=== PATIENT | female | born 1960 | race Caucasian/White ===

== ENCOUNTER 2022-01-17 08:00 | Outpatient (CLI) | payer MEDICAID ==
--- NOTE | 2022-01-17 15:14 | XRAY Report ---
PROCEDURE: Ankle 3 View LT INDICATIONS: ANKLE FRACTURE LEFT TECHNIQUE: 3 views of the ankle were acquired. COMPARISON: 01/05/2022 FINDINGS: Bones: Healing fracture of the lateral malleolus at the syndesmosis. Ankle mortise remains aligned on these weightbearing views. Calcaneal insertional enthesopathy. Soft tissues: No suspicious calcifications. There is soft tissue swelling. IMPRESSION: Healing fracture of the distal fibula at the syndesmosis. Reviewed by: Max Nielsen MD on 01/17/2022 3:13 PM PDT Approved by: Max Nielsen MD on 01/17/2022 3:13 PM PDT Station ID: [id number]
== END 2022-01-17 23:59 | disposition home or self-care (01) ==
LOC: DI.WOS 08:00
PROVIDERS: ATTEND Orthopaedic Surgery
DX: S82.62XD Displaced fracture of lateral malleolus of left fibula, subsequent encounter for closed fracture with routine healing (principal)

== ENCOUNTER 2022-02-08 14:08 | Outpatient (CLI) | payer MEDICAID | END 2022-02-08 14:09 | disposition critical access hospital (66) | LOC: EMS 14:08 | DX: E11.65 Type 2 diabetes mellitus with hyperglycemia (principal); R41.82 Altered mental status, unspecified; J96.90 Respiratory failure, unspecified, unspecified whether with hypoxia or hypercapnia | CPT/HCPCS: A0425; A0427; A0999 ==

== ENCOUNTER 2022-02-08 14:23 | Inpatient (IN) | payer MEDICAID ==
[2022-02-08] MEDS ORDERED: SODIUM CHLORIDE 0.9% 1,000 ML IV STA ×2 (14:32→18:07)
[2022-02-08] MEDS ORDERED: PROPOFOL 1000 MG/100 ML 1,000 MG/100 ML BOTTLE IV STA (14:34)
--- NOTE | 2022-02-08 15:11 | ED Physician Documentation ---
History of Present Illness - Stated complaint Stated Complaint: COMATOSE - Chief complaint Chief Complaint: Critical Care - History obtained from History obtained from: EMS - Additonal information Additional information: The patient is brought to the emergency department by EMS for chief complaint of being found unresponsive in her room at her assisted living facility after refusing to have her blood sugar checked this morning and "sitting in her room all day, eating candy". The medics report that when they arrived, the patient was completely unresponsive and her respirations were irregular, with oxygen saturation in the 70s. Her Accu-Chek was greater than 500. She was found to have sinus tachycardia on the monitor. She was intubated and started on IV fluids via IO line, and she did begin to arouse somewhat after that. They gave her a dose of Versed in route. Patient has open her eyes but is not making any effort to resist bagging and has not been moving much since the medics have had her. The patient did not have any other complaints leading up to the incident today as far as the medics know. Review of records reveals the patient has not been seen in our hospital previously, other than for an ankle x-ray. Review of Systems Unable to obtain: Unresponsive, Intubated PD PAST MEDICAL HISTORY - Present Medications Home Medications: Ambulatory Orders Medication Instructions Recorded Confirmed Amlodipine Besylate [Norvasc] 10 mg PO DAILY 02/08/22 02/08/22 Gabapentin [Neurontin] 600 mg PO BID 02/08/22 02/08/22 Insulin Glargine [Lantus Solostar] 36 units SUBQ QPM 02/08/22 02/08/22 Rosuvastatin Calcium [Crestor] 10 mg PO QPM 02/08/22 02/08/22 Trazodone HCl 400 mg PO QPM 02/08/22 02/08/22 glipiZIDE ER [Glucotrol Xl] 2.5 mg PO 0800 02/08/22 02/08/22 - Allergies Allergies/Adverse Reactions: Allergies Allergy/AdvReac Type Severity Reaction Status Date / Time lisinopril Allergy Unknown Verified 02/08/22 14:41 metformin Allergy Unknown Verified 02/08/22 14:41 PD ED PE NORMAL - Vitals Vital signs reviewed: Yes - General General: Other (Intubated patient who opens her eyes briefly when her his name is side but then immediately becomes unconscious again.) - HEENT HEENT: Atraumatic, PERRL (2 mm, sluggishly reactive), Moist mucous membranes - Neck Neck: Supple, no meningeal sign - Cardiac Cardiac: RRR, No murmur, Strong equal pulses - Respiratory Respiratory: No respiratory distress, Other (Mild crackles bilateral lung kirby diffusely) - Abdomen Abdomen: Soft, Non tender, Non distended - Derm Derm: Normal color, Warm and dry, No rash - Extremities Extremities: No deformity, No edema - Neuro Neuro: Other (Moving all 4 extremities a little. Opens eyes to name but does not make eye contact. Does move to noxious stimuli but does not localize.) Results - Vitals Vitals: Vital Signs - 24 hr 02/08/22 02/08/22 02/08/22 14:26 14:41 15:00 Temperature 37.4 C Heart Rate 90 96 95 Respiratory 20 16 Rate Blood Pressure 111/74 135/92 H O2 Saturation 93 02/08/22 02/08/22 02/08/22 15:30 15:32 16:00 Temperature Heart Rate 93 93 91 Respiratory 12 13 17 Rate Blood Pressure 125/89 H 125/89 H 115/79 O2 Saturation 93 96 02/08/22 02/08/22 02/08/22 16:30 16:47 17:00 Temperature Heart Rate 89 89 88 Respiratory 13 13 Rate Blood Pressure 116/79 108/77 O2 Saturation 95 96 02/08/22 17:23 Temperature Heart Rate 88 Respiratory 12 Rate Blood Pressure 98/74 O2 Saturation 94 Oxygen O2 Source Mechanical ventilator - EKG (time done) 1511 Rate: Rate (enter#) (94) Rhythm: NSR [place]: LAD (Borderline) Intervals: Normal NH QRS: Normal Ischemia: Normal ST segments Compare to prior EKG: Old EKG unavailable Computer interpretation: Agree with computer - Labs Labs: Laboratory Tests 02/08/22 02/08/22 02/08/22 15:05 15:05 15:05 WBC 20.5 H RBC 4.36 Hgb 12.7 Hct 37.6 MCV 86.2 MCH 29.1 MCHC 33.8 RDW 12.3 Plt Count 292 MPV 8.4 Neut # (Auto) Not Reportable Lymph # (Auto) Not Reportable [place] # (Auto) Not Reportable Eos # (Auto) Not Reportable Baso # (Auto) Not Reportable Absolute Nucleated RBC Not Reportable Total Counted 100 Band Neuts % (Manual) 1 Abnorm Lymph % (Manual) 0 Nucleated RBC % Not Reportable Neutrophils # (Manual) 17.4 H Lymphocytes # (Manual) 1.6 Monocytes # (Manual) 1.4 H Eosinophils # (Manual) 0.0 Basophils # (Manual) 0.0 Differential Comment MANUAL DIFFERENTIAL WBC Morphology NORMAL APPEARANCE Platelet Estimate NORMAL (130-450,000) Platelet Morphology NORMAL APPEARANCE RBC Morph Micro Appear NORMAL APPEARANCE Bld Gas Analysis Time Sample Site ABG pH ABG pCO2 ABG pO2 ABG HCO3 ABG Total CO2 ABG O2 Saturation ABG Base Excess Juan Test Respiration Rate O2 Delivery Device Vent Mode FiO2 Tidal Volume PEEP Sodium 134 L Potassium 5.0 Chloride 95 L Carbon Dioxide 25 Anion Gap 14.0 H BUN 30 H Creatinine 1.2 H Estimated GFR (MDRD) 46 L Glucose 513 H* Calcium 8.3 L Total Bilirubin 1.2 H AST 151 H ALT 145 H Alkaline Phosphatase 93 B-Natriuretic Peptide 469 H Total Protein 6.8 Albumin 3.3 Globulin 3.5 Albumin/Globulin Ratio 0.9 L Lipase 23 Nasal Adenovirus (PCR) Nasal B. parapertussis DNA (PCR) Nasal Coronavir 229E PCR Nasal Coronavir HKU1 PCR Nasal Coronavir NL63 PCR Nasal Coronavir OC43 PCR Nasal Enterovir/Rhinovir PCR Nasal Influenza B PCR Nasal Influenza A PCR Nasal Parainfluen 1 PCR Nasal Parainfluen 2 PCR Nasal Parainfluen 3 PCR Nasal Parainfluen 4 PCR Nasal RSV (PCR) Nasal B.pertussis DNA PCR Nasal C.pneumoniae (PCR) Venkatesh Human Metapneumo PCR Nasal M.pneumoniae (PCR) Nasal SARS-CoV-2 (PCR) Urine Opiates Screen Ur Oxycodone Screen Urine Methadone Screen Ur Propoxyphene Screen Ur Barbiturates Screen Ur Tricyclics Screen Ur Phencyclidine Scrn Ur Amphetamine Screen U Methamphetamines Scrn U Benzodiazepines Scrn Urine Cocaine Screen U Cannabinoids Screen Serum Ketones NEGATIVE 02/08/22 02/08/22 02/08/22 15:33 15:51 15:58 WBC RBC Hgb Hct MCV MCH MCHC RDW Plt Count MPV Neut # (Auto) Lymph # (Auto) [place] # (Auto) Eos # (Auto) Baso # (Auto) Absolute Nucleated RBC Total Counted Band Neuts % (Manual) Abnorm Lymph % (Manual) Nucleated RBC % Neutrophils # (Manual) Lymphocytes # (Manual) Monocytes # (Manual) Eosinophils # (Manual) Basophils # (Manual) Differential Comment WBC Morphology Platelet Estimate Platelet Morphology RBC Morph Micro Appear Bld Gas Analysis Time 1604 Sample Site RIGHT BRACHIAL ABG pH 7.33 L ABG pCO2 43 ABG pO2 68 L ABG HCO3 22.3 ABG Total CO2 23.6 ABG O2 Saturation 93 L ABG Base Excess -3.5 L Juan Test NOT APPLICABLE Respiration Rate 12 O2 Delivery Device VENTILATOR Vent Mode ASSIST/CONTROL FiO2 100.00 Tidal Volume 450 PEEP 5 Sodium Potassium Chloride Carbon Dioxide Anion Gap BUN Creatinine Estimated GFR (MDRD) Glucose Calcium Total Bilirubin AST ALT Alkaline Phosphatase B-Natriuretic Peptide Total Protein Albumin Globulin Albumin/Globulin Ratio Lipase Nasal Adenovirus (PCR) NOT DETECTED Nasal B. parapertussis DNA (PCR) NOT DETECTED Nasal Coronavir 229E PCR NOT DETECTED Nasal Coronavir HKU1 PCR NOT DETECTED Nasal Coronavir NL63 PCR NOT DETECTED Nasal Coronavir OC43 PCR NOT DETECTED Nasal Enterovir/Rhinovir PCR NOT DETECTED Nasal Influenza B PCR NOT DETECTED Nasal Influenza A PCR NOT DETECTED Nasal Parainfluen 1 PCR NOT DETECTED Nasal Parainfluen 2 PCR NOT DETECTED Nasal Parainfluen 3 PCR NOT DETECTED Nasal Parainfluen 4 PCR NOT DETECTED Nasal RSV (PCR) NOT DETECTED Nasal B.pertussis DNA PCR NOT DETECTED Nasal C.pneumoniae (PCR) NOT DETECTED Venkatesh Human Metapneumo PCR NOT DETECTED Nasal M.pneumoniae (PCR) NOT DETECTED Nasal SARS-CoV-2 (PCR) NOT DETECTED Urine Opiates Screen NEGATIVE Ur Oxycodone Screen NEGATIVE Urine Methadone Screen NEGATIVE Ur Propoxyphene Screen NEGATIVE Ur Barbiturates Screen NEGATIVE Ur Tricyclics Screen NEGATIVE Ur Phencyclidine Scrn NEGATIVE Ur Amphetamine Screen NEGATIVE U Methamphetamines Scrn NEGATIVE U Benzodiazepines Scrn NEGATIVE Urine Cocaine Screen NEGATIVE U Cannabinoids Screen NEGATIVE Serum Ketones - Rads (name of study) Chest x-ray Radiology: Final report received, EMP read indepedently, See rad report (Multiple diffuse bilateral opacities in lung kirby) Head CT Radiology: Final report received, EMP read indepedently, See rad report (No acute findings) CT chest with Radiology: Final report received, EMP read indepedently, See rad report (Multiple opacities which could represent a bilateral diffuse pneumonia or CHF, or combination.) PD MEDICAL DECISION MAKING - ED course Complexity details: reviewed results, re-evaluated patient, considered differential ED course: The patient was evaluated immediately upon arrival in the emergency department. She did have good lung sounds and was displaying good oxygen saturation so her tube was left as it was for the time being. I did place a central line as above, as patient only had an IO line. The patient was displaying some responsiveness but despite the fact that it had been 45 minutes and she did receive the Versed, she still was not alert and tracking or able to follow commands and still seemed to be quite altered. She also was making minimal respiratory effort. As such, I did not feel that she was ready to be extubated. The patient was somewhat agitated and was started on a propofol drip for sedation. She was given IV fluids and worked up with chest x-ray, labs, EKG, CT scans of the head and chest, ABG and urinalysis. The chest x-ray showed extensive opacities and white blood cell count was 20,000. The patient was sent for CT scans of the head and the chest and chest CT showed extensive opacities/infiltrates consistent with either diffuse pneumonia, CHF, or both. Patient was started on antibiotics. Her ABG did show a low PO2 despite the patient being on 100% FiO2. Her PCO2 was normal and pH was just slightly decreased. We did go ahead and increase the PEEP. I spoke with Dr. Escobar, who did agree to admit the patient to the ICU. Departure - Departure Disposition: 66 [facility] DC/Xfer Clinical Impression: Hyperglycemia Pneumonia Qualifiers: Pneumonia type: due to unspecified organism Laterality: bilateral Lung location: unspecified part of lung Qualified Code(s): J18.9 - Pneumonia, unspecified organism Altered mental status Qualifiers: Altered mental status type: stupor Qualified Code(s): R40.1 - Stupor Respiratory failure Qualifiers: Chronicity: acute Respiratory failure complication: hypoxia Qualified Code(s): J96.01 - Acute respiratory failure with hypoxia Condition: Critical Discharge Date/Time: 02/08/22 17:29
[2022-02-08 15:12] LABS: BASOPHILS % (AUTO) 0.2 %; HCT - HEMATOCRIT 37.6 % (37.0-47.0); HGB - HEMOGLOBIN 12.7 g/dL (12.0-16.0); LYMPHOCYTES % (AUTO) 4.9 %; MEAN CORPUSCULAR HEMOGLOBIN 29.1 pg (27.0-31.0); MEAN CORPUSCULAR HGB CONC 33.8 g/dL (32.0-36.0); MEAN CORPUSCULAR VOLUME 86.2 fL (81.0-99.0); MEAN PLATELET VOLUME 8.4 fL (7.9-10.8); MONOCYTES % (AUTO) 10.2 %; NEUTROPHILS % (AUTO) 83.4 %; PLT - PLATELET COUNT 292 10^3/uL (130-450); RED BLOOD COUNT 4.36 10^6/uL (4.20-5.40); RED CELL DISTRIBUTION WIDTH 12.3 % (12.0-15.0); WHITE BLOOD COUNT 20.5 x10^3/uL (4.8-10.8)
[2022-02-08 15:17] LABS: ABNORMAL LYMPHS % (MANUAL) 0 %
[2022-02-08 15:20] LABS: KETONES, SERUM (ACETEST) NEGATIVE (NEGATIVE)
[2022-02-08 15:28] LABS: ALBUMIN 3.3 g/dL (3.2-5.5); ALBUMIN/GLOBULIN RATIO 0.9 (1.0-2.2); ALKALINE PHOSPHATASE 93 IU/L (42-121); ALT ALANINE AMINOTRANSFERASE 145 IU/L (10-60); AST ASPARTATE AMINOTRANSFERASE 151 IU/L (10-42); BILIRUBIN,TOTAL 1.2 mg/dL (0.2-1.0); BUN - BLOOD UREA NITROGEN 30 mg/dL (6-20); CALCIUM 8.3 mg/dL (8.5-10.3); CARBON DIOXIDE - CO2 25 mmol/L (21-32); CHLORIDE 95 mmol/L (101-111); CREATININE 1.2 mg/dL (0.4-1.0); GFR - MDRD 46 (>89); LIPASE 23 U/L (22-51); SODIUM 134 mmol/L (135-145); TOTAL PROTEIN 6.8 g/dL (6.7-8.2)
[2022-02-08 15:30] LABS: GLUCOSE 513 mg/dL (70-100)
[2022-02-08 15:38] LABS: BAND NEUTROPHILS % (MANUAL) 1 %; LYMPHOCYTES # (MANUAL) 1.6 10^3/uL (1.5-3.5); LYMPHOCYTES % (MANUAL) 8 %; MONOCYTES # (MANUAL) 1.4 10^3/uL (0.0-1.0); NEUTROPHILS # (MANUAL) 17.4 10^3/uL (1.5-6.6)
[2022-02-08 15:39] LABS: DIFFERENTIAL COMMENT MANUAL DIFFERENTIAL; PLATELET ESTIMATE, MANUAL NORMAL (130-450,000) (NORMAL); PLATELET MORPHOLOGY NORMAL APPEARANCE (NORMAL); RBC MORPHOLOGY (MULTIPLE) NORMAL APPEARANCE (NORMAL); WBC MORPHOLOGY (MULTIPLE) NORMAL APPEARANCE (NORMAL)
--- NOTE | 2022-02-08 15:41 | XRAY Report ---
PROCEDURE: Chest 1 View X-Ray INDICATIONS: intubation/line placement TECHNIQUE: One view of the chest was acquired. COMPARISON: None. FINDINGS: Surgical changes and devices: Endotracheal tube in the mid trachea. Right sided central venous line with the catheter tip at the cavoatrial junction. Lungs and pleura: No pleural effusions or pneumothorax. Extensive bilateral airspace opacity. Mediastinum: Mediastinal contours appear normal. Heart size is normal. Bones and chest wall: No suspicious bony lesions. Overlying soft tissues appear unremarkable. IMPRESSION: Tubes and lines project in the expected location. Extensive bilateral airspace opacity. Reviewed by: Shai Herron MD on 02/08/2022 3:39 PM PST Approved by: Shai Herron MD on 02/08/2022 3:39 PM PST Station ID: [id number]
[2022-02-08] MEDS ORDERED: cefTRIAXone 2 GM in SODIUM CHLORIDE 0.9% MINIBAG 100 ML IV STA (16:01)
[2022-02-08] MEDS ORDERED: AZITHROMYCIN INJ 500 MG in SODIUM CHLORIDE 0.9% 250 ML IV STA (16:02)
[2022-02-08] MEDS ORDERED: iohexoL-300 100 ML VIAL ONE (16:04)
[2022-02-08 16:07] LABS: ABG PCO2 43 mmHg (34-45); ABG PH 7.33 (7.35-7.45); ABG PO2 68 mmHg (80-100)
[2022-02-08 16:08] LABS: ABG BASE EXCESS -3.5 mmol/L (-2.0-3.0); ABG HCO3 22.3 mmol/L (22.0-26.0); ABG OXYGEN SATURATION 93 % (94-98); ABG TCO2 23.6 MMOL/L (21.0-29.0)
[2022-02-08 16:09] LABS: ABG MODE OF VENTILATION ASSIST/CONTROL; ABG RESPIRATORY RATE 12 b/min
[2022-02-08 16:19] LABS: MUDS CUTOFF CONCENTRATIONS CUTOFF CONC BELOW:
[2022-02-08 16:35] LABS: AMPHETAMINE SCREEN,URINE NEGATIVE (NEGATIVE); BARBITURATE SCREEN,UR NEGATIVE (NEGATIVE); BENZODIAZEPINES SCREEN, URINE NEGATIVE (NEGATIVE); COCAINE SCREEN URINE NEGATIVE (NEGATIVE); METHADONE SCREEN, URINE NEGATIVE (NEGATIVE); METHAMPHETAMINES SCREEN, URINE NEGATIVE (NEGATIVE); OPIATE SCREEN, URINE NEGATIVE (NEGATIVE); OXYCODONE SCREEN, URINE NEGATIVE (NEGATIVE); PROPOXYPHENE SCREEN, URINE NEGATIVE (NEGATIVE); THC CANNABINOID SCREEN, URINE NEGATIVE (NEGATIVE); TRICYCLIC ANTIDEPRESSANT,URINE NEGATIVE (NEGATIVE)
[2022-02-08] MEDS ORDERED: iohexoL-300 100 ML VIAL IVP ONE (16:50)
[2022-02-08 16:56] LABS: B. PARAPERTUSSIS- RESP PCR PAN NOT DETECTED; B. PERTUSSIS- RESP PCR PANEL NOT DETECTED; C. PNEUMONIAE- RESP PCR PANEL NOT DETECTED; CORONAVIRUS 229E-RESP PCR NOT DETECTED; CORONAVIRUS HKU1-RESP PCR NOT DETECTED; CORONAVIRUS NL63-RESP PCR NOT DETECTED; CORONAVIRUS OC43-RESP PCR NOT DETECTED; HUMAN METAPNEUMOVIRUS NOT DETECTED; INFLUENZA A- RESP PCR PANEL NOT DETECTED; INFLUENZA B - RESP PCR PANEL NOT DETECTED; M. PNEUMONIAE- RESP PCR PANEL NOT DETECTED; PARAINFLUENZA VIRUS 1 NOT DETECTED; PARAINFLUENZA VIRUS 2 NOT DETECTED; PARAINFLUENZA VIRUS 3 NOT DETECTED; PARAINFLUENZA VIRUS 4 NOT DETECTED; RHINOVIRUS/ENTEROVIRUS NOT DETECTED; RSV- RESP PCR PANEL NOT DETECTED; SARS-CoV-2 -RESP PCR PANEL NOT DETECTED
--- NOTE | 2022-02-08 16:56 | CT Report ---
PROCEDURE: HEAD WO INDICATIONS: aloc TECHNIQUE: Noncontrast 4.5 mm thick angled axial sections acquired from the foramen magnum to the vertex. For r adiation dose reduction, the following was used: automated exposure control, adjustment of mA and/or kV according to patient size. COMPARISON: None. FINDINGS: Image quality: Excellent. CSF spaces: Basal cisterns are patent. No extra-axial fluid collections. Ventricles are normal in size and shape. Brain: No midline shift. No intracranial masses or hemorrhage. No area of hypodensity in a vascula r distribution to suggest acute infarction. There is periventricular hypodensity consistent with assistant professor sculpture kurtis microvascular ischemic disease. Skull and face: Thickening at the left posterior scalp, (07/07). Calvarium and visualized facial bone s are intact, without suspicious lesions. Endotracheal tube. Sinuses: Visualized sinuses and mastoids are clear. IMPRESSION: No acute intracranial abnormality. Thickening at the left posterior scalp. This could be contusion or scalp hematoma. Reviewed by: Shai Herron MD on 02/08/2022 4:54 PM PST Approved by: Shai Herron MD on 02/08/2022 4:54 PM PST Station ID: [id number]
--- NOTE | 2022-02-08 17:06 | CT Report ---
PROCEDURE: CHEST W INDICATIONS: extensive opacities bilaterally CONTRAST:100ml Omnipaque 300 TECHNIQUE: After the administration of intravenous contrast, 1 mm axial images were acquired from the pulmonary apices through the posterior costophrenic angles. Axial 5 mm soft tissue kernel reconstructions were performed as well as 8 mm axial MIP and coronal and sagittal 5 mm reformations. For radiation dose reduction, the following was used: automated exposure control, adjustment of mA and/or kV according to patient size. COMPARISON: None. FINDINGS: Image quality: Excellent. Lungs and pleura: Dense pneumonia and collapse involving much of the left lung. Moderate left pleural effusion. Diffuse groundglass opacities in the right lung and more confluent areas of consolidation and a moderately large pleural effusion. Mediastinum: Mild cardiomegaly. No pericardial effusion. Dense LAD calcifications. No mediastinal or hilar adenopathy by size criteria. Thoracic aorta and central pulmonary arteries are normal in size . Esophagus is normal in caliber. No hiatal hernia. ET tube and NG tube and right IJ line are in sa tisfactory position. Bones and chest wall: No suspicious bony lesions. No vertebral body compression fractures. No axil truong or supraclavicular adenopathy by size criteria. Thyroid is extensively inhomogeneous in appeara nce. Consider Gabe's thyroiditis.. Abdomen: Visualized upper abdominal solid organs appear normal. Upper abdominal bowel loops are nor mal in caliber. IMPRESSION: 1. Lines and tubes in satisfactory position. 2. Constellation of findings can potentially represent severe congestive heart failure versus extensi ve left-sided pneumonia and less extensive right-sided pneumonia with possible superimposed congestiv e heart failure. CLINICAL RECOMMENDATION STATEMENTS: In patients <35 years with an ITN detected on CT, MRI, or extrathyroidal ultrasound, the Committee re commends further evaluation with dedicated thyroid ultrasound if the nodule is "e1 cm and has no susp icious imaging features, and if the patient has normal life expectancy. In patients "e35 years with an ITN detected on CT, MRI, or extrathyroidal ultrasound, the Committee r ecommends further evaluation with dedicated thyroid ultrasound if the nodule is "e1.5 cm and has no s uspicious imaging features, and if the patient has normal life expectancy. (ACR, 2014) Reviewed by: Wai Meade MD on 02/08/2022 5:04 PM PST Approved by: Wai Meade MD on 02/08/2022 5:04 PM [facility]UST Station ID: [id number]
[2022-02-08] MEDS ORDERED: ONDANSETRON ODT 4 MG TABLET TL PRN (18:08)
[2022-02-08] MEDS ORDERED: MORPHINE 2 MG/ML CARPUJECT IVP PRN (18:08)
[2022-02-08] MEDS ORDERED: ALBUTEROL NEB 2.5 MG/3 ML INH PRN (18:08)
[2022-02-08] MEDS ORDERED: SODIUM CHLORIDE FLUSH 0.9% 10 ML SYRINGE IVP PRN (18:08)
[2022-02-08] MEDS ORDERED: ONDANSETRON 4 MG/2 ML VIAL IVP PRN (18:08)
[2022-02-08 18:18] LABS: ABG BASE EXCESS -4.8 mmol/L (-2.0-3.0); ABG HCO3 19.8 mmol/L (22.0-26.0); ABG OXYGEN SATURATION 93 % (94-98); ABG PCO2 35 mmHg (34-45); ABG PH 7.37 (7.35-7.45); ABG PO2 68 mmHg (80-100); ABG TCO2 20.9 MMOL/L (21.0-29.0)
[2022-02-08] MEDS ORDERED: cefTRIAXone 2 GM VIAL ONE (18:18)
[2022-02-08 18:19] LABS: ABG MODE OF VENTILATION ASSIST/CONTROL; ABG RESPIRATORY RATE 20 b/min
--- NOTE | 2022-02-08 18:20 | HISTORY & PHYSICAL EXAMINATION ---
Chief Complaint - Chief Complaint Chief Complaint: found down History of Present Illness - Admitted From Admitted From:: [facility] - History Obtained From Records Reviewed: [facility] and [facility] History obtained from: Dr. Zuniga Exam Limitations: intubated - History of Present Illness HPI Comment/Other: We do not know much about this 61-year-old female that was brought in by EMS with respiratory failure and needed intubation. I reviewed our clinic notes where she was seen by orthopedics. She was admitted to [facility] in November 2021 and stayed there for 35 days. She was living in a motel, had to leave the motel due to financial reasons and ended up living in a storage unit with her furniture. She was living in an hotel in [place] with 2 cats and poorly controlled diabetes, hypertension, gait instability with frequent falls. She was trying to transfer to an electric scooter at the grocery store when she fell and twisted her ankle. She was helped back up by bystanders who are able to drive her home. She was able to get inside her motel room but once there she really could not mobilize at all. EMS was called because she could not manage her own hygiene or ambulate.She was seen in the ER December 02 but there is no bed available. Orthopedics saw her and placed her in an orthotic boot and advised weightbearing as tolerated. She was unable to bear weight and remove the boot on her own. Orthopedics saw her a couple of times. She required a lot of motivation to move and get out of bed. She was tapered off her oxycodone because it was contributing to her sedation. And when she was discharged she was supposed to be off of oxycodone within 2 weeks. It was recommended that she get an outpatient sleep study, see podiatry for diabetic care. She was in the hospital overall from December 05 through January 10.It is unknown at what date she was stable medically to then have avoidable days awaiting placement. Since that time there is a gap in the knowledge of how she ended up at [facility] in [place] but that is where she lives since 01/10/22 and her PCP is Rosamaria Judd. . Her last known normal was at 9 AM today. She is a diabetic and refused her medications this morning and began eating a bag of candy. Later on in the day when she was checked in her room, she was found down, unresponsive and not maintaining her airway with infrequent sonorous respiration. She was intubated in the field and then given Versed. An IO was placed in her left cabrera. Her blood glucose on arrival to the emergency room is 523. She is starting to arouse and follow commands. Temperature is 37.4. Heart rate 90. Blood pressure 111/74. Respirations 20. She is 93% saturated on 100% FiO2 on the ventilator. When the ER doctor examined her she was opening her eyes but then immediately closes them again. Pupils are sluggishly reactive. Belly is soft. She has mild crackles bilaterally. Moving all 4 extremities a little bit. Open her eyes to name but does not make eye contact. Does move to noxious stimuli but does not localize. Her white cell count is 20.5 thousand. Hemoglobin is 12.7. BUN is 30, creatinine 1.2. Glucose 513. BNP is 469. Liver enzymes have a total bili of 1.2, AST 151, ALT 145. Viral PCR panel is negative. Talk screen panel is negative. Head CT is negative. Chest CT has multiple opacities with bilateral diffuse pneumonia or CHF.Ketones are negative and her lactic acid is 3.1. The ER provider and I discussed this case. We find it interesting that there is no antecedent history of illness prior to this. This patient was "normal" this morning. No antecedent history of fever, cough, congestion, sore throat. History - Past Medical History Cardiovascular: reports: Hypertension, High cholesterol, Other (Morbid obesity. 86 kg with discharge January 10, 2022) Respiratory: reports: Asthma, Sleep apnea, Other (Mild hypoxia in the past due to atelectasis) Neuro: reports: Peripheral neuropathy, Other (Subarachnoid hemorrhage After fallAugust 2021, With cognitive impairment) Endocrine/Autoimmune: reports: Type 2 diabetes (Metformin causes diarrhea, GLP-1 inhibitor not improved by insurance. Unwilling to do insulin coverage with meals so is on long-acting insulin.), Other : reports: Other (History of UTIs and hypertonic bladder) Psych: reports: Depression Musculoskeletal: reports: Fibromyalgia, Other (chronic pain syndrome) MRSA Hx?: No - Past Surgical History General: reports: Appendectomy - Family & Social History Family History Comment/Other: Father of coronary artery disease at age 86. Mom of old age at 94. 1 sister had breast cancer Living arrangement: [facility] Living Situation: With caregiver(s) Social History Notes: [employer]/public health social worker is Kelli Nguyen. [phone].She has no family in the area. Never smoked. Rare alcohol drinker. If she buys a bottle of wine it last a month. She denies any history of recreational substance abuse in the medical record Meds/Allgy - Home Medications Home Medications: Ambulatory Orders Medication Instructions Recorded Confirmed Amlodipine Besylate [Norvasc] 10 mg PO DAILY 02/08/22 02/08/22 Gabapentin [Neurontin] 600 mg PO BID 02/08/22 02/08/22 Insulin Glargine [Lantus Solostar] 36 units SUBQ QPM 02/08/22 02/08/22 Rosuvastatin Calcium [Crestor] 10 mg PO QPM 02/08/22 02/08/22 Trazodone HCl 400 mg PO QPM 02/08/22 02/08/22 glipiZIDE ER [Glucotrol Xl] 2.5 mg PO 0800 02/08/22 02/08/22 - Allergies Allergies/Adverse Reactions: Allergies Allergy/AdvReac Type Severity Reaction Status Date / Time lisinopril Allergy Unknown Verified 02/08/22 14:41 metformin Allergy Unknown Verified 02/08/22 14:41 Review of Systems - Other Findings Other Findings: Unable to obtain review of systems and is intubated patient Prior Level of Functionality: Unable to ascertain in this intubated patient. Upon transfer to [facility] in December she was described as incontinent of urine, continent of bowel, and using a walker for ambulation. Exam - Vital Signs Reviewed Vital Signs: Yes Vital Signs: Vital Signs x48h Temp Pulse Resp BP Pulse Ox 02/08/22 18:07 85 13 82/66 L 02/08/22 18:03 86 14 80/63 L 100 02/08/22 17:43 87 14 87/68 L 97 02/08/22 17:23 88 12 98/74 94 02/08/22 17:00 88 13 108/77 96 02/08/22 16:47 89 02/08/22 16:30 89 13 116/79 95 02/08/22 16:00 91 17 115/79 96 02/08/22 15:32 93 13 125/89 H 93 02/08/22 15:30 93 12 125/89 H 02/08/22 15:00 95 16 135/92 H 02/08/22 14:41 96 02/08/22 14:26 37.4 C 90 20 111/74 93 - Physical Exam General Appearance: positive: Other (Short statured morbidly obese female. Has gone up to 103 kg from her 80 something kilogram discharge at [facility] in December. Intubated, eyes flutter open at my voice but then close again. On propofol) Eyes Bilateral: positive: PERRL, EOMI ENT: positive: No signs of dehydration Neck: negative: Stiff neck Respiratory: positive: No respiratory distress, Rales, Rhonchi, Other (Intubated. Vent settings are being reviewed and adjusted). negative: Wheezes Cardiovascular: positive: Regular rate & rhythm. negative: Systolic murmur Abdomen: positive: Non-tender, Nml bowel sounds, Other (Morbidly obese, mildly diffusely distended). negative: Guarding, Rebound Skin: positive: Warm, Dry, Other (Multiple scaling lesions almost like early SKs all over forearms, legs) Extremities: positive: Non-tender, No pedal edema, Other (I am not seeing a boot on either ankle.) Neurologic/Psychiatric: positive: Other (Intubated, on propofol, response to my voice and looks right at me when I call her name, pupils constricted and accommodate. Minimally moving her extremities voluntarily) Sepsis Event Note (H) - Evaluation Current Stage of Sepsis: Ruled out Possible source of Sepsis: positive: Pulmonary - Sepsis Criteria Sepsis Criteria: Respiratory: Increasing oxygen requirements, Metabolic: lactate > 2 mmol/L Conclusion/Plan - Problem List (1) Acute respiratory failure with hypoxia Conclusion/Plan: [facility] our [facility], this lady does not have a history of pneumonia or chronic lung disease. While they do note a history of asthma, there are no chronic bronchodilator medications used in her ER/acute hospital visit at [facility]. When she was discharged there were no bronchodilators. She does not have a history of smoking. Her viral panel is negative. As such bilateral opacities can be either from pneumonia, congestive heart failure. Assessment/plan Inpatient status ICU Continue intubation with sedation until FiO2 requirement and mental status im proves Echocardiogram to see if she really has congestive heart failure Treat as pneumonia (2) Pneumonia Conclusion/Plan: No antecedent history to provide context. Viral panel is negative. Blood cultures were not done in the emergency room before antibiotics given.Lactic acid is positive in the face of negative ketones. She is not on metformin. Not felt to be dehydrated and she has no liver disease to cause a lactic acidosis. As such she may be septic from pneumonia. Again it is a very sketchy history and that she had no antecedent illness prior to this episode. Plan: She is not the prototypical community-acquired pneumonia patient. She has in creased risk from living in a residential facility as well as diabetes is uncontrolled. Has already received 2 L of fluid wide-open, Central line in place Sputum cultures ordered Blood cultures ordered Ceftriaxone and azithromycin was given in the ED, will continue Qualifiers: Pneumonia type: due to unspecified organism Laterality: bilateral Lung location: unspecified part of lung Qualified Code(s): J18.9 - Pneumonia, unspecified organism (3) Type II diabetes mellitus, uncontrolled Conclusion/Plan: On Lantus 36 units, Glucotrol XL 2.5 mg. Intolerance to metformin noted. Plan: A1c in the morning Lantus 20 units since she is n.p.o. Sliding scale insulin Qualifiers: Glycemic state: with hyperglycemia Qualified Code(s): E11.65 - Type 2 diabetes mellitus with hyperglycemia (4) Hypertension Conclusion/Plan: Medications at home are Norvasc but no diuretic, etc. Not on an NAA inhibitor Due to severe allergy Will give her medications via NG Qualifiers: Hypertension type: primary hypertension Qualified Code(s): I10 - Essential (primary) hypertension (5) Nondisplaced fracture of lateral malleolus of left fibula, subsequent encounter for closed fracture with malunion Conclusion/Plan: seen by ortho and their instructions were: (1) I would continue your short leg boot walker until I recheck you in a month you can bear weight as tolerated on your left leg with your short leg boot walker. When you are sitting, you may remove the boot to work on moving your left ankle so that he would obtain more motion to your left ankle. 2) I will recheck you in 1 month and obtain new x-rays. Your diabetes may affect your healing of your fracture, more slowly to heal. Keep your left foot elevated is much as possible to reduce swelling. Your swelling will persist for 3 to 4 months - Lab Results Lab results reviewed: Yes Fish Bones: 02/08/22 15:05 02/08/22 15:05 - Diagnostic Imaging Results Diagnostic Imaging Results: positive: Final report reviewed
[2022-02-08] MEDS ORDERED: PANTOPRAZOLE 40 MG VIAL IVP SCH (19:00)
[2022-02-08] MEDS: SODIUM CHLORIDE 0.9% 1,000 ML IV SCH (19:45)
[2022-02-08] MEDS: INSULIN REGULAR HUMAN 300 UNIT/3 ML VIAL SUBQ SCH (20:08)
[2022-02-08] MEDS ORDERED: PANTOPRAZOLE 40 MG VIAL ONE (20:09)
[2022-02-08] MEDS: PROPOFOL 1000 MG/100 ML 1,000 MG/100 ML BOTTLE IV SCH (20:23)
[2022-02-08] MEDS: INSULIN GLARGINE-YFGN 300 UNIT/3 ML PEN SUBQ SCH (21:04)
[2022-02-09] MEDS: ethyl alcohoL 62% SWAB AMPULE NAS SCH ×3 (00:06→20:29)
[2022-02-09] MEDS: INSULIN REGULAR HUMAN 300 UNIT/3 ML VIAL SUBQ SCH ×6 (00:06→17:51)
[2022-02-09] MEDS ORDERED: SODIUM CHLORIDE 0.9% 1,000 ML IV ONE (05:14)
[2022-02-09] MEDS: SODIUM CHLORIDE 0.9% 1,000 ML IV SCH ×2 (05:24→20:49)
[2022-02-09] MEDS: SODIUM CHLORIDE FLUSH 0.9% 10 ML SYRINGE IVP SCH ×4 (05:25→20:29)
[2022-02-09 05:41] LABS: BASOPHILS # (AUTO) 0.1 10^3/uL (0.0-0.1); BASOPHILS % (AUTO) 0.3 %; EOSINOPHILS % (AUTO) 0.1 %; HCT - HEMATOCRIT 35.3 % (37.0-47.0); HGB - HEMOGLOBIN 11.8 g/dL (12.0-16.0); LYMPHOCYTES # (AUTO) 2.4 10^3/uL (1.5-3.5); LYMPHOCYTES % (AUTO) 12.3 %; MEAN CORPUSCULAR HEMOGLOBIN 29.1 pg (27.0-31.0); MEAN CORPUSCULAR HGB CONC 33.4 g/dL (32.0-36.0); MEAN CORPUSCULAR VOLUME 86.9 fL (81.0-99.0); MEAN PLATELET VOLUME 8.8 fL (7.9-10.8); MONOCYTES % (AUTO) 10.1 %; NEUTROPHILS % (AUTO) 76.5 %; PLT - PLATELET COUNT 302 10^3/uL (130-450); RED BLOOD COUNT 4.06 10^6/uL (4.20-5.40); RED CELL DISTRIBUTION WIDTH 12.9 % (12.0-15.0); WHITE BLOOD COUNT 19.6 x10^3/uL (4.8-10.8)
[2022-02-09 05:52] LABS: CALCIUM 8.2 mg/dL (8.5-10.3); POTASSIUM 4.3 mmol/L (3.5-5.0)
[2022-02-09] MEDS: PANTOPRAZOLE 40 MG VIAL IVP SCH (06:19)
[2022-02-09 06:22] LABS: DIFFERENTIAL COMMENT MANUAL=AUTO DIFF; PLATELET ESTIMATE, MANUAL NORMAL (130-450,000) (NORMAL); RBC MORPHOLOGY (MULTIPLE) NORMAL APPEARANCE (NORMAL)
[2022-02-09 06:25] LABS: MAGNESIUM 2.2 mg/dL (1.7-2.8); PHOSPHORUS 3.6 mg/dL (2.5-4.6)
[2022-02-09 06:46] LABS: CALCIUM, IONIZED 1.07 mmol/L (1.15-1.33); VBG PH 7.388 (7.31-7.41)
[2022-02-09] MEDS ORDERED: CALCIUM GLUC 1,000MG/50ML-NACL 1,000 MG/50 ML BAG IV ONE (07:04)
[2022-02-09 08:14] LABS: ABG HCO3 25.4 mmol/L (22.0-26.0); ABG PCO2 38 mmHg (34-45); ABG PH 7.45 (7.35-7.45); ABG PO2 68 mmHg (80-100); ABG TCO2 26.5 MMOL/L (21.0-29.0)
[2022-02-09 08:15] LABS: ABG BASE EXCESS 1.4 mmol/L (-2.0-3.0); ABG MODE OF VENTILATION ASSIST/CONTROL; ABG OXYGEN SATURATION 94 % (94-98); ABG RESPIRATORY RATE 12 b/min; ALLEN TEST POSITIVE
[2022-02-09] MEDS ORDERED: ENOXAPARIN 40 MG/0.4 ML SYRINGE SUBQ SCH (09:00)
[2022-02-09] MEDS: PROPOFOL 1000 MG/100 ML 1,000 MG/100 ML BOTTLE IV SCH ×4 (10:03→21:58)
[2022-02-09] MEDS ORDERED: SODIUM CHLORIDE INHALATION 3 ML NEB ONE (10:16)
--- NOTE | 2022-02-09 10:57 | XRAY Report ---
PROCEDURE: Chest 1 View X-Ray INDICATIONS: intubated TECHNIQUE: One view of the chest was acquired. COMPARISON: 02/08/2022 FINDINGS: Surgical changes and devices: An endotracheal tube is seen, with the tip 6 cm above the richard. Ther e is a stable right-sided central line, the tip overlying the inferior aspect of the superior vena ca va. Lungs and pleura: Generalized interstitial infiltrates are seen, which are overall slightly improved compared to the prior. There are small bilateral pleural effusions. On this semiupright study, no la rge pneumothorax is seen. Mediastinum: Mediastinal contours appear normal. Heart size is moderately enlarged. Bones and chest wall: No suspicious bony lesions. Age-appropriate degenerative changes are seen. Overlying soft tissues appear unremarkable. IMPRESSION: The tip of the endotracheal tube is seen 6 cm above the richard. Stable right-sided central line. Bilateral interstitial infiltrates are seen, which are slightly improved compared to the prior. Bilateral pleural effusions are seen. Moderate cardiomegaly. Reviewed by: Chris Jennings MD on 02/09/2022 9:55 AM [facility] Approved by: Chris Jennings MD on 02/09/2022 9:55 AM [facility] Station ID: [id number]
[2022-02-09 11:08] LABS: ESTIMATED AVERAGE GLUCOSE 174 mg/dL (70-100); HEMOGLOBIN A1c% 7.7 % (4.27-6.07)
[2022-02-09] MEDS ORDERED: INSULIN REGULAR HUMAN 300 UNIT/3 ML VIAL SUBQ SCH (12:00)
--- NOTE | 2022-02-09 12:15 | PHARMACY PROGRESS NOTE ---
- Best Possible Medication History Admit Date and Time: 02/08/221807 Processed by: Nursing Medication History completed: Yes As the person ultimately responsible for medication therapy, providers are able to order a medication from an existing home medication list in [facility] via the "Reconcile Routine" prior to Confirmation of that medication by customer support coordinator. Such practice is discouraged except when the physician, in their clinical judgment, deems that a medical need exists for a medication without regard to previous use.
--- NOTE | 2022-02-09 12:20 | Ultrasound Report ---
PROCEDURE: Chest INDICATIONS: pleural effusion TECHNIQUE: Real-time scanning was performed of the chest, with image documentation. COMPARISON: Correlation is made with chest CT 02/08/2022. Correlation is made with chest radiograph, 02/09/2022. FINDINGS: Small bilateral pleural effusions are seen, right larger than left. IMPRESSION: There are small bilateral pleural effusions seen, right larger than left. Reviewed by: Chris Jennings MD on 02/09/2022 11:[address] [facility] Approved by: Chris Jennings MD on 02/09/2022 11:[address] [facility] Station ID: [id number]
--- NOTE | 2022-02-09 12:54 | PROVIDER PROGRESS NOTE ---
Progress Note February 09, 2022 1:02 PM No events overnight. In reviewing telemedicine report there were no orders written for her. She has been stable on the vent. Still requiring FiO2 of 100%. Received 1 dose of antibiotics yesterday and is due to receive another dose of antibiotics today. Glucose is controlled with Lantus. Active Medications Albuterol (Albuterol Neb 2.5 Mg/3 Ml) 2.5 mg INH Q4HR PRN PRN Reason: Wheezing Alcohol (Ethyl Alcohol 62% Swab Ampule) 1 amp WESLEY BID [facility] Last Admin: 02/09/22 08:05 Dose: 1 amp Amlodipine Besylate (Amlodipine 5 Mg Tablet) 10 mg GT DAILY [facility] Enoxaparin Sodium (Enoxaparin 40 Mg/0.4 Ml Syringe) 40 mg SUBQ DAILY [facility] Sodium Chloride (Normal Saline 0.9%) 1,000 mls @ 100 mls/hr IV .Q10H [facility] Last Admin: 02/09/22 05:24 Dose: 100 mls/hr Propofol (Diprivan) 1,000 mg in 100 mls @ 6.18 mls/hr IV .[id number] [facility]; Protocol Last Admin: 02/09/22 10:03 Dose: 20 mcg/kg/min, 12.36 mls/hr Cefepime HCl 1 gm/ Sodium (Chloride) 100 mls @ 200 mls/hr IV TID [facility] Insulin Glargine-yfgn (Insulin Glargine-Yfgn 300 Unit/3 Ml Pen) 20 unit SUBQ QPM [facility] Last Admin: 02/08/22 21:04 Dose: 20 unit Insulin Human Regular (Insulin Regular Human 300 Unit/3 Ml Vial) 2 - 10 unit SUBQ Q6HR [facility]; Protocol Last Admin: 02/09/22 12:14 Dose: Not Given Morphine Sulfate (Morphine 2 Mg/Ml Carpuject) 2 mg IVP Q2HR PRN PRN Reason: Pain 8 to 10 Ondansetron HCl (Ondansetron Odt 4 Mg Tablet) 4 mg TL Q6HR PRN PRN Reason: Nausea / Vomiting Ondansetron HCl (Ondansetron 4 Mg/2 Ml Vial) 4 mg IVP Q6HR PRN PRN Reason: Nausea / Vomiting Pantoprazole Sodium (Pantoprazole 40 Mg Vial) 40 mg IVP QDAC [facility] Last Admin: 02/09/22 06:19 Dose: 40 mg Sodium Chloride (Sodium Chloride Flush 0.9% 10 Ml Syringe) 10 ml IVP 0100,0900,1700 [facility] Last Admin: 02/09/22 08:05 Dose: 10 ml Sodium Chloride (Sodium Chloride Flush 0.9% 10 Ml Syringe) 10 ml IVP PRN PRN PRN Reason: NEEDED PER PROVIDER ORDERS Last Admin: 02/09/22 05:25 Dose: 20 ml Amlodipine Besylate [Norvasc] 10 mg PO DAILY 02/08/22 Gabapentin [Neurontin] 600 mg PO BID 02/08/22 Insulin Glargine [Lantus Solostar] 36 units SUBQ QPM 02/08/22 Rosuvastatin Calcium [Crestor] 10 mg PO QPM 02/08/22 Trazodone HCl 400 mg PO QPM 02/08/22 glipiZIDE ER [Glucotrol Xl] 2.5 mg PO 0800 02/08/22 Temperature 37.3. Heart rate 94. Blood pressure 152/81. Respirations 13. 97 to 98% saturated on 100% FiO2, tidal volume 450, PEEP of 7 Short statured morbidly obese female who still opens her eyes to my voice on propofol but there is no meaningful response. Coarse upper airway sounds. Almost no lung sounds on the left side. Regular rate and rhythm Abdomen is obese, soft, hypoactive bowel sounds, no grimacing of pain with palpation Extremities are starting to develop some edema. She did not have any yesterday. BMP is normal except for BUN of 31. Creatinine is now 1 and it was 1.2. Random glucose 185. A1c is 7.7%. Phosphorus is 3.6, magnesium 2.2. White cell count 19.6. She came in at 20.5/not much improvement. Hemoglobin is 11.8 when she came in at 12.7. Platelets 302. MRSA positive on nasal screen Assessment/Plan (1) Acute respiratory failure with hypoxia Conclusion/Plan: In reviewing the sketchy medical record I can get from our [facility], this lady does not have a history of pneumonia or chronic lung disease. While they do note a history of asthma, there are no chronic bronchodilator medications used in her ER/acute hospital visit at [facility]. When she was discharged there were no bronchodilators. She does not have a history of smoking. Her viral panel is negative. As such bilateral opacities can be either from pneumonia, congestive heart failure. Today also re- reviewed her history and that she was eating candy. Refused her medications in the morning. The staff at her facility left her alone for a while, so what ever her respiratory arrest or event was, it was unwitnessed. Could she have swallowed a piece of candy and it went down the wrong way? She is on Fi02 100%, PEEP 7, TV 450. She generates up to 430 on her own. Peak pressures 25-27. pH 7.45, PC02 38, P02 68, Base excess 1.4[ Assessment/plan See below #2 Continue vent support, sedation w propofol Echocardiogram to see if she really has congestive heart failure not available today, maybe 02/10 Treat as pneumonia Check BNP (2) Pneumonia with pleural effusion Conclusion/Plan: No antecedent history to provide context. Viral panel is negative. Blood cultures were not done in the emergency room before antibiotics (rocephin and azithromycin) given and done after. Lactic acidosis in the face of negative ketones. She is not on metformin to cause this. Not felt to be dehydrated and she has no liver disease to cause a lactic acidosis. As such, I am concluding she may be septic from pneumonia. Again it is a very sketchy history and that she had no antecedent illness prior to this episode. After review I am wondering about aspiration? Plan: US to evaluate size of effusions and Surgery consult to see if she is a candidate for thoracentesis She is not the prototypical community-acquired pneumonia patient. She has increased risk from living in a residential facility as well as diabetes is uncontrolled. Sputum cultures ordered Blood cultures ordered Ceftriaxone and azithromycin was given in the Ed and I will change to Cefipime and vancomycin Qualifiers: Pneumonia type: due to unspecified organism Laterality: bilateral Lung location: unspecified part of lung Qualified Code(s): J18.9 - Pneumonia, unspecified organism (3) Type II diabetes mellitus, uncontrolled Conclusion/Plan: On Lantus 36 units, Glucotrol XL 2.5 mg at her care facility. Intolerance to metformin noted. I started Lantus 20 units and 3 units of short acting q6h since she is n.p.o. plus Sliding scale insulin This morning glucose 299, 172, 105. A1c is 7.7% Plan: stop the 3 units that are scheduled and continue the lantus and SS. Qualifiers: Glycemic state: with hyperglycemia Qualified Code(s): E11.65 - Type 2 diabetes mellitus with hyperglycemia (4) Hypertension Conclusion/Plan: Medications at home are Norvasc but no diuretic, etc. Not on an NAA inhibitor Due to severe allergy Will give her medications via NG and resumed for today. Qualifiers: Hypertension type: primary hypertension Qualified Code(s): I10 - Essential (primary) hypertension (5) Nondisplaced fracture of lateral malleolus of left fibula, subsequent encounter for closed fracture with malunion Conclusion/Plan: seen by ortho and their instructions were: (1) I would continue your short leg boot walker until I recheck you in a month you can bear weight as tolerated on your left leg with your short leg boot walker. When you are sitting, you may remove the boot to work on moving your left ankle so that he would obtain more motion to your left ankle. 2) I will recheck you in 1 month and obtain new x-rays. Your diabetes may affect your healing of your fracture, more slowly to heal. Keep your left foot elevated is much as possible to reduce swelling. Your swelling will persist for 3 to 4 months I shared with PT today for when they do get to see her.
--- NOTE | 2022-02-09 13:32 | OPERATIVE REPORT ---
Operative Report - General Admit Date: 02/08/22 - Other Other Information/Narrative: PROCEDURE DATE: 02/09/22 SURGEON: Jin Sauer MD, FACS PREOPERATIVE DIAGNOSIS: Evita Ely is a 61 year old female whom I am asked to perform flexible bronchoscopy for the purpose of obtaining secretions from the left lung. This is an emergency procedure requested of me by the Medical Hospitalist (Dr. Jhoana Escobar) due to progressively worsening oxygen saturation levels despite aggressive mechanical ventilation with CT evidence left lung consolidation and a history of possible aspiration of candy. I have reviewed the CXR and CT scans yesterday and today. She has a small-moderate right pleural effusion, cardiomegaly and a smaller left pleural effusion. There are air bronchograms in most of the left lower lobe indicating consolidation without air exchange. US of the right chest reveals a small right pleural effusion. POSTOPERATIVE DIAGNOSIS: Left lower lobe consolidation NAME OF PROCEDURE: Flexible bronchoscopy with BAL ANESTHESIA: IV sedation (Propofol) DESCRIPTION OF PROCEDURE FOLLOWS: The patent remained on a ventilator in the ICU during the procedure. She was already sedated with Propofol. A Verathon Glidescope BF 5.0 bronchoscope was inserted into the endotracheal tube and the examination was begun while maintaining ventilator support.. The distal trachea appeared normal. The richard was normal and not distorted. The right mainstem bronchus was normal and the right upper lobe bronchus was unremarkable. The orifices to the anterior, apical, and posterior segmental bronchi appeared normal. The truncus intermedius appeared normal. The middle lobe and lower lobe bronchi were poorly visualized. The origin of the left mainstem bronchus was inflamed. The orifices of the left upper lobe, left lower lobe, and lingula were poorly visualized due to copious secretions which contained small fragments of pink particulate matter that were retrieved and sent for pathologic examination. The left mainstem bronchus was irrigated with saline and the irrigant aspirated. The bronchoscope was removed and the patient tolerated the procedure without complication. ASSESSMENT: Left lower lobe consolidation. It is possible that she aspirated the candy she was eating yesterday although a complete obstruction was not seen. If the pleural effusions increase in size, thoracentesis or pleural catheters can be considered. RECOMMENDATION: Continue aggressive pulmonary support and tracheal suction as needed.
[2022-02-09] MEDS: amLODIPine 5 MG TABLET GT SCH (13:35)
[2022-02-09] MEDS: CEFEPIME 1 GM in SODIUM CHLORIDE 0.9% MINIBAG 100 ML IV SCH ×2 (13:35→21:16)
--- NOTE | 2022-02-09 13:39 | PHARMACY PROGRESS NOTE ---
- Therapy Status Vancomycin regimen day #: 1 Therapy status: Awaiting steady state Treatment indication: pneumonia Trough goal: 15-20 Concurrent antibiotics: cefepime - [facility] Risk Risk level for Acute Kidney Injury: High Acute Kidney Injury risk factors: Wt >100kg or BMI >40, IV contrast within 72 hrs, Goal trough >15, Chronic baseline hypertension, Diabetes, Admission to ICU - Monitoring and Recommendation Clinical response to treatment: I&O Previous 24 hours 02/07/22 02/08/22 02/09/22 23:59 23:59 23:59 Intake Total 2402.692 1162.308 Output Total 488 762 Balance 1914.692 400.308 Lab Results 02/09/22 02/08/22 05:28 15:05 BUN 31 H 30 H Creatinine 1.0 1.2 H Estimated GFR (MDRD) 56 L 46 L Cultures 02/09/22 12:00 Bronchial Washings Respiratory Culture - Preliminary Monitoring plan: Daily serum creatinine Next trough due prior to maintenance dose #: 2 Next trough due (date/time): 02/11 at 1400 Areas for additional monitoring: IV to PO when appropriate, Therapy de- escalation based on culture results, Acute Kidney Injury Pharmacy recommendation: Continue current regime
[2022-02-09] MEDS ORDERED: ONDANSETRON ODT 4 MG TABLET TL PRN (14:14)
[2022-02-09] MEDS ORDERED: ONDANSETRON 4 MG/2 ML VIAL IVP PRN (14:14)
[2022-02-09] MEDS: MORPHINE 2 MG/ML CARPUJECT IVP PRN ×2 (14:14→20:50)
[2022-02-09] MEDS ORDERED: VANCOMYCIN INJ 2 GM, VANCOMYCIN INJ 500 MG in SODIUM CHLORIDE 0.9% 500 ML IV ONE (15:00)
[2022-02-09] MEDS: NYSTATIN POWDER 15 GM TOP SCH (20:29)
[2022-02-09] MEDS ORDERED: SODIUM CHLORIDE 0.9% 500 ML IV ONE (20:47)
[2022-02-09] MEDS: INSULIN GLARGINE-YFGN 300 UNIT/3 ML PEN SUBQ SCH (21:00)
[2022-02-09 21:23] LABS: ABG PCO2 39 mmHg (34-45); ABG PH 7.44 (7.35-7.45); ABG PO2 70 mmHg (80-100)
[2022-02-09 21:24] LABS: ABG BASE EXCESS 1.5 mmol/L (-2.0-3.0); ABG HCO3 25.7 mmol/L (22.0-26.0); ABG OXYGEN SATURATION 95 % (94-98); ABG TCO2 26.9 MMOL/L (21.0-29.0)
[2022-02-09 21:25] LABS: ABG MODE OF VENTILATION ASSIST/CONTROL; ABG RESPIRATORY RATE 12 b/min
[2022-02-09] MEDS: SODIUM CHLORIDE 0.9% 500 ML IV PRN (21:58)
[2022-02-10] MEDS: INSULIN REGULAR HUMAN 300 UNIT/3 ML VIAL SUBQ SCH ×4 (00:23→18:02)
[2022-02-10] MEDS: PROPOFOL 1000 MG/100 ML 1,000 MG/100 ML BOTTLE IV SCH ×6 (01:23→20:55)
[2022-02-10] MEDS: SODIUM CHLORIDE FLUSH 0.9% 10 ML SYRINGE IVP PRN ×2 (04:09→06:09)
[2022-02-10 04:23] LABS: BASOPHILS % (AUTO) 0.2 %; EOSINOPHILS # (AUTO) 0.1 10^3/uL (0.0-0.7); EOSINOPHILS % (AUTO) 0.3 %; HCT - HEMATOCRIT 30.7 % (37.0-47.0); HGB - HEMOGLOBIN 10.2 g/dL (12.0-16.0); LYMPHOCYTES # (AUTO) 2.1 10^3/uL (1.5-3.5); LYMPHOCYTES % (AUTO) 12.1 %; MEAN CORPUSCULAR HEMOGLOBIN 29.9 pg (27.0-31.0); MEAN CORPUSCULAR HGB CONC 33.2 g/dL (32.0-36.0); MEAN PLATELET VOLUME 8.8 fL (7.9-10.8); MONOCYTES # (AUTO) 1.5 10^3/uL (0.0-1.0); MONOCYTES % (AUTO) 8.8 %; NEUTROPHILS # (AUTO) 13.2 10^3/uL (1.5-6.6); NEUTROPHILS % (AUTO) 78.1 %; PLT - PLATELET COUNT 242 10^3/uL (130-450); RED BLOOD COUNT 3.41 10^6/uL (4.20-5.40); WHITE BLOOD COUNT 16.9 x10^3/uL (4.8-10.8)
[2022-02-10 04:24] LABS: CALCIUM, IONIZED 1.08 mmol/L (1.15-1.33); VBG PH 7.422 (7.31-7.41)
[2022-02-10 04:37] LABS: CALCIUM 8.1 mg/dL (8.5-10.3); CREATININE 0.8 mg/dL (0.4-1.0); PHOSPHORUS 3.2 mg/dL (2.5-4.6); POTASSIUM 3.5 mmol/L (3.5-5.0)
[2022-02-10] MEDS ORDERED: CALCIUM GLUC 1,000MG/50ML-NACL 1,000 MG/50 ML BAG IV ONE (05:00)
[2022-02-10] MEDS: CEFEPIME 1 GM in SODIUM CHLORIDE 0.9% MINIBAG 100 ML IV SCH ×3 (05:31→21:43)
[2022-02-10 05:52] LABS: ABG OXYGEN SATURATION 93 % (94-98); ABG PCO2 38 mmHg (34-45); ABG PH 7.45 (7.35-7.45); ABG PO2 65 mmHg (80-100); ABG TCO2 27.1 MMOL/L (21.0-29.0)
[2022-02-10 05:53] LABS: ABG MODE OF VENTILATION ASSIST/CONTROL; ABG RESPIRATORY RATE 12 b/min
[2022-02-10] MEDS: POTASSIUM CHLOR 20 MEQ/100 ML 20 MEQ/100 ML BAG IV SCH ×2 (06:10→08:15)
[2022-02-10] MEDS: PANTOPRAZOLE 40 MG VIAL IVP SCH (06:18)
[2022-02-10] MEDS: SODIUM CHLORIDE FLUSH 0.9% 10 ML SYRINGE IVP SCH ×3 (08:15→20:43)
[2022-02-10] MEDS: amLODIPine 5 MG TABLET GT SCH (08:15)
[2022-02-10] MEDS: ethyl alcohoL 62% SWAB AMPULE NAS SCH ×2 (08:15→20:56)
[2022-02-10] MEDS: ENOXAPARIN 40 MG/0.4 ML SYRINGE SUBQ SCH (08:15)
[2022-02-10] MEDS: NYSTATIN POWDER 15 GM TOP SCH ×2 (08:15→20:57)
[2022-02-10] MEDS: CHLORHEXIDINE GLUCONATE 15 ML UDC PO SCH ×2 (08:15→20:56)
[2022-02-10] MEDS: SODIUM CHLORIDE 0.9% 1,000 ML IV SCH (08:26)
[2022-02-10 10:06] LABS: CALCIUM, IONIZED 1.1 mmol/L (1.15-1.33); VBG PH 7.459 (7.31-7.41)
[2022-02-10] MEDS: metroNIDAZOLE 500 MG/100 ML 500 MG/100 ML BAG IV SCH ×2 (11:00→18:05)
[2022-02-10] MEDS ORDERED: SODIUM CHLORIDE INHALATION 3 ML NEB ONE (11:58)
--- NOTE | 2022-02-10 12:03 | PROVIDER PROGRESS NOTE ---
Subjective - Prog Note Date Prog Note Date: 02/10/22 Prog Note Time: 11:59 - Subjective Pt reports feeling: No change Subjective: No events over night, she is still requiring FiO2 of 100%. Glucose is controlled with lantus and she is due for another dose of antibiotics today. Current Medications - Current Medications Current Medications: Active Medications Albuterol (Albuterol Neb 2.5 Mg/3 Ml) 2.5 mg INH Q4HR PRN PRN Reason: Wheezing Alcohol (Ethyl Alcohol 62% Swab Ampule) 1 amp WESLEY BID SERGIO Last Admin: 02/10/22 08:15 Dose: 1 amp Amlodipine Besylate (Amlodipine 5 Mg Tablet) 10 mg GT DAILY [facility] Last Admin: 02/10/22 08:15 Dose: 10 mg Chlorhexidine Gluconate (Chlorhexidine Gluconate 15 Ml Udc) 15 ml PO BID SERGIO Last Admin: 02/10/22 08:15 Dose: 15 ml Enoxaparin Sodium (Enoxaparin 40 Mg/0.4 Ml Syringe) 40 mg SUBQ DAILY [facility] Last Admin: 02/10/22 08:15 Dose: 40 mg Propofol (Diprivan) 1,000 mg in 100 mls @ 6.18 mls/hr IV .[id number] [facility]; Protocol Last Admin: 02/10/22 09:31 Dose: 35 mcg/kg/min, 21.63 mls/hr Cefepime HCl 1 gm/ Sodium (Chloride) 100 mls @ 200 mls/hr IV TID [facility] Last Infusion: 02/10/22 06:01 Dose: Infused Vancomycin HCl 1.75 gm/ Sodium (Chloride) 500 mls @ 250 mls/hr IV Q24H [facility]GIO Sodium Chloride (Normal Saline 0.9%) 1,000 mls @ 100 mls/hr IV .Q10H [facility] Last Admin: 02/10/22 08:26 Dose: 100 mls/hr Sodium Chloride (Normal Saline 0.9%) 500 mls @ 20 mls/hr IV Q24H PRN PRN Reason: TKO RATE Last Infusion: 02/10/22 04:17 Dose: 0 mls/hr Metronidazole (Flagyl 500 Mg/100 Ml) 500 mg in 100 mls @ 100 mls/hr IV Q8H [facility] Last Admin: 02/10/22 11:00 Dose: 100 mls/hr Insulin Glargine-yfgn (Insulin Glargine-Yfgn 300 Unit/3 Ml Pen) 20 unit SUBQ QPM [facility] Last Admin: 02/09/22 21:00 Dose: 20 unit Insulin Human Regular (Insulin Regular Human 300 Unit/3 Ml Vial) 2 - 10 unit SUBQ Q6HR [facility]; Protocol Last Admin: 02/10/22 11:15 Dose: Not Given Morphine Sulfate (Morphine 2 Mg/Ml Carpuject) 2 mg IVP Q2HR PRN PRN Reason: Pain 8 to 10 Last Admin: 02/09/22 20:50 Dose: 2 mg Nystatin (Nystatin Powder 15 Gm) 1 applic TOP BID [facility] Last Admin: 02/10/22 08:15 Dose: 1 applic Ondansetron HCl (Ondansetron Odt 4 Mg Tablet) 4 mg TL Q6HR PRN PRN Reason: Nausea / Vomiting Ondansetron HCl (Ondansetron 4 Mg/2 Ml Vial) 4 mg IVP Q6HR PRN PRN Reason: Nausea / Vomiting Pantoprazole Sodium (Pantoprazole 40 Mg Vial) 40 mg IVP QDAC [facility] Last Admin: 02/10/22 06:18 Dose: 40 mg Sodium Chloride (Sodium Chloride Flush 0.9% 10 Ml Syringe) 10 ml IVP 0100,0900,1700 [facility] Last Admin: 02/10/22 08:15 Dose: 10 ml Sodium Chloride (Sodium Chloride Flush 0.9% 10 Ml Syringe) 10 ml IVP PRN PRN PRN Reason: NEEDED PER PROVIDER ORDERS Last Admin: 02/10/22 06:09 Dose: 10 ml Sodium Chloride (Sodium Chloride Flush 0.9% 10 Ml Syringe) 20 ml IVP PRN PRN PRN Reason: After Blood Draw Last Admin: 02/10/22 04:09 Dose: 20 ml Amlodipine Besylate [Norvasc] 10 mg PO DAILY 02/08/22 Gabapentin [Neurontin] 600 mg PO BID 02/08/22 Insulin Glargine [Lantus Solostar] 36 units SUBQ QPM 02/08/22 Rosuvastatin Calcium [Crestor] 10 mg PO QPM 02/08/22 Trazodone HCl 400 mg PO QPM 02/08/22 glipiZIDE ER [Glucotrol Xl] 2.5 mg PO 0800 02/08/22 Objective - Vital Signs/Intake & Output Reviewed Vital Signs: Yes Vital Signs: Vital Signs x48h Temp Pulse Pulse Resp BP Pulse Ox 02/10/22 11:53 16 94 02/10/22 11:00 85 16 130/61 94 02/10/22 10:00 90 16 153/77 H 94 02/10/22 09:00 91 15 142/75 H 94 02/10/22 08:00 37.1 C 86 17 148/73 H 94 02/10/22 06:59 88 89 16 147/73 H 94 02/10/22 06:00 86 15 138/70 H 93 02/10/22 05:50 89 02/10/22 05:00 87 15 133/66 H 95 02/10/22 04:00 89 12 159/78 H 94 Intake & Output: Intake & Output 02/07/22 02/08/22 02/09/22 02/10/22 23:59 23:59 23:59 23:59 Intake Total 2402.692 3331.046 1484.736 Output Total 488 1177 490 Balance 4878.505 8684.046 994.736 - Objective General Appearance: positive: Other (short statured, obese female who is intubated.) Respiratory: positive: Other (coarse upper airway sounds with very diminished breath sounds on the left) Cardiovascular: positive: Regular rate & rhythm Abdomen: positive: No distention, Abnml bowel sounds (hypoactive). negative: Tenderness Skin: positive: Warm, Dry Extremities: positive: Other (developing edema) - Lab Results Fish Bones: 02/10/22 04:20 02/10/22 10:01 Other Labs: Lab Results x24hrs 02/10/22 02/10/22 02/10/22 Range/Units 10:01 10:01 05:41 WBC (4.8-10.8) x10^3/uL RBC (4.20-5.40) 10^6/uL Hgb (12.0-16.0) g/dL Hct (37.0-47.0) % MCV (81.0-99.0) fL MCH (27.0-31.0) pg MCHC (32.0-36.0) g/dL RDW (12.0-15.0) % Plt Count (130-450) 10^3/uL MPV (7.9-10.8) fL Neut # (Auto) (1.5-6.6) 10^3/uL Lymph # (Auto) (1.5-3.5) 10^3/uL Tate # (Auto) (0.0-1.0) 10^3/uL Eos # (Auto) (0.0-0.7) 10^3/uL Baso # (Auto) (0.0-0.1) 10^3/uL Absolute Nucleated RBC x10^3/uL Nucleated RBC % /100WBC Bld Gas Analysis Time 0548 Sample Site RIGHT BRACHIAL ABG pH 7.45 (7.35-7.45) ABG pCO2 38 (34-45) mmHg ABG pO2 65 L (80-100) mmHg ABG HCO3 26.0 (22.0-26.0) mmol/L ABG Total CO2 27.1 (21.0-29.0) MMOL/L ABG O2 Saturation 93 L (94-98) % ABG Base Excess 2.0 (-2.0-3.0) mmol/L Juan Test NOT APPLICABLE VBG pH 7.459 H (7.31-7.41) Ionized Calcium 1.10 L (1.15-1.33) mmol/L Respiration Rate 12 b/min O2 Delivery Device VENTILATOR Vent Mode ASSIST/CONTROL FiO2 100.00 Tidal Volume 450 mL PEEP 7 cmH2O Sodium (135-145) mmol/L Potassium 4.0 (3.5-5.0) mmol/L Chloride (101-111) mmol/L Carbon Dioxide (21-32) mmol/L Anion Gap (6-13) BUN (6-20) mg/dL Creatinine (0.4-1.0) mg/dL Estimated GFR (MDRD) (>89) Glucose (70-100) mg/dL Lactic Acid (0.5-2.2) mmol/L Calcium (8.5-10.3) mg/dL Phosphorus (2.5-4.6) mg/dL Magnesium (1.7-2.8) mg/dL 02/10/22 02/10/22 02/10/22 Range/Units 04:20 04:20 04:20 WBC (4.8-10.8) x10^3/uL RBC (4.20-5.40) 10^6/uL Hgb (12.0-16.0) g/dL Hct (37.0-47.0) % MCV (81.0-99.0) fL MCH (27.0-31.0) pg MCHC (32.0-36.0) g/dL RDW (12.0-15.0) % Plt Count (130-450) 10^3/uL MPV (7.9-10.8) fL Neut # (Auto) (1.5-6.6) 10^3/uL Lymph # (Auto) (1.5-3.5) 10^3/uL Tate # (Auto) (0.0-1.0) 10^3/uL Eos # (Auto) (0.0-0.7) 10^3/uL Baso # (Auto) (0.0-0.1) 10^3/uL Absolute Nucleated RBC x10^3/uL Nucleated RBC % /100WBC Bld Gas Analysis Time Sample Site ABG pH (7.35-7.45) ABG pCO2 (34-45) mmHg ABG pO2 (80-100) mmHg ABG HCO3 (22.0-26.0) mmol/L ABG Total CO2 (21.0-29.0) MMOL/L ABG O2 Saturation (94-98) % ABG Base Excess (-2.0-3.0) mmol/L Juan Test VBG pH 7.422 H (7.31-7.41) Ionized Calcium 1.08 L (1.15-1.33) mmol/L Respiration Rate b/min O2 Delivery Device Vent Mode FiO2 Tidal Volume mL PEEP cmH2O Sodium 138 (135-145) mmol/L Potassium 3.5 (3.5-5.0) mmol/L Chloride 105 (101-111) mmol/L Carbon Dioxide 25 (21-32) mmol/L Anion Gap 8.0 (6-13) BUN 21 H (6-20) mg/dL Creatinine 0.8 (0.4-1.0) mg/dL Estimated GFR (MDRD) 73 L (>89) Glucose 126 H (70-100) mg/dL Lactic Acid 0.8 (0.5-2.2) mmol/L Calcium 8.1 L (8.5-10.3) mg/dL Phosphorus 3.2 (2.5-4.6) mg/dL Magnesium 2.0 (1.7-2.8) mg/dL 02/10/22 02/09/22 Range/Units 04:20 21:13 WBC 16.9 H (4.8-10.8) x10^3/uL RBC 3.41 L (4.20-5.40) 10^6/uL Hgb 10.2 L (12.0-16.0) g/dL Hct 30.7 L (37.0-47.0) % MCV 90.0 (81.0-99.0) fL MCH 29.9 (27.0-31.0) pg MCHC 33.2 (32.0-36.0) g/dL RDW 13.0 (12.0-15.0) % Plt Count 242 (130-450) 10^3/uL MPV 8.8 (7.9-10.8) fL Neut # (Auto) 13.2 H (1.5-6.6) 10^3/uL Lymph # (Auto) 2.1 (1.5-3.5) 10^3/uL Tate # (Auto) 1.5 H (0.0-1.0) 10^3/uL Eos # (Auto) 0.1 (0.0-0.7) 10^3/uL Baso # (Auto) 0.0 (0.0-0.1) 10^3/uL Absolute Nucleated RBC 0.00 x10^3/uL Nucleated RBC % 0.0 /100WBC Bld Gas Analysis Time 211 Sample Site RIGHT BRACHIAL ABG pH 7.44 (7.35-7.45) ABG pCO2 39 (34-45) mmHg ABG pO2 70 L (80-100) mmHg ABG HCO3 25.7 (22.0-26.0) mmol/L ABG Total CO2 26.9 (21.0-29.0) MMOL/L ABG O2 Saturation 95 (94-98) % ABG Base Excess 1.5 (-2.0-3.0) mmol/L Juan Test NOT APPLICABLE VBG pH (7.31-7.41) Ionized Calcium (1.15-1.33) mmol/L Respiration Rate 12 b/min O2 Delivery Device VENTILATOR Vent Mode ASSIST/CONTROL FiO2 100.00 Tidal Volume 450 mL PEEP 7 cmH2O Sodium (135-145) mmol/L Potassium (3.5-5.0) mmol/L Chloride (101-111) mmol/L Carbon Dioxide (21-32) mmol/L Anion Gap (6-13) BUN (6-20) mg/dL Creatinine (0.4-1.0) mg/dL Estimated GFR (MDRD) (>89) Glucose (70-100) mg/dL Lactic Acid (0.5-2.2) mmol/L Calcium (8.5-10.3) mg/dL Phosphorus (2.5-4.6) mg/dL Magnesium (1.7-2.8) mg/dL Sepsis Event Note (H) - Evaluation Current Stage of Sepsis: Ruled out Possible source of Sepsis: positive: Pulmonary - Sepsis Criteria Sepsis Criteria: Respiratory: Increasing oxygen requirements, Metabolic: lactate > 2 mmol/L Assessment/Plan - Problem List (1) Acute respiratory failure with hypoxia Impression: No history of smoking, asthma, pneumonia or chronic lung disease that I can find from her limited history available. As such bilateral opacities can be either from pneumonia, congestive heart failure. 02/09 I re- reviewed her history and that she was eating candy. Refused her medications in the morning. The staff at her facility left her alone for a while, so what ever her respiratory arrest or event was, it was unwitnessed. Could she have swallowed a piece of candy and it went down the wrong way? She is on Fi02 100%, PEEP 7, TV 450. She generates up to 430 on her own. Peak pressures 25-27. pH 7.45, PC02 38, P02 68, Base excess 1.4 Assessment/plan See below #2 Continue vent support, sedation w propofol Echocardiogram to see if she really has congestive heart failure if available today. Treat as pneumonia Check BNP (2) Pneumonia with pleural effusion Conclusion/Plan: No antecedent history to provide context. Viral panel is negative. Blood cultures were not done in the emergency room before antibiotics (rocephin and azithromycin) given and done after. Lactic acidosis in the face of negative ketones. She is not on metformin to cause this. Not felt to be dehydrated and she has no liver disease to cause a lactic acidosis. As such, I am concluding she may be septic from pneumonia. Again it is a very sketchy history and that she had no antecedent illness prior to this episode. After review I am wondering about aspiration? Her US showed small bilateral pleural effusions, right > left. Dr. Sauer consulted for bronchoscopy and recommended that if the pleural effusion gets any bigger, thoracentesis or pleural catheters can be considered. Her bronchial culture returned positive for staphylococcus aureus, I started Cefipime and Vancomycin yesterday. I recommend starting metronidazole to cover anaerobic pathogens incase she did aspirate. Plan: Continue Vancomycin and cefepime Start Metronidazole Qualifiers: Pneumonia type: due to unspecified organism Laterality: bilateral Lung location: unspecified part of lung Qualified Code(s): J18.9 - Pneumonia, unspecified organism (3) Type II diabetes mellitus, uncontrolled Conclusion/Plan: On Lantus 36 units, Glucotrol XL 2.5 mg at her care facility. Intolerance to metformin noted. I started Lantus 20 units and 3 units of short acting q6h since she is n.p.o. plus Sliding scale insulin This morning glucose 299, 172, 105. A1c is 7.7% Yesterday I stopped the scheduled 3 units. Plan: continue the lantus and SS. Qualifiers: Glycemic state: with hyperglycemia Qualified Code(s): E11.65 - Type 2 diabetes mellitus with hyperglycemia (4) Hypertension Conclusion/Plan: Medications at home are Norvasc but no diuretic, etc. Not on an NAA inhibitor Due to severe allergy Will give her medications via NG and resumed for today. Qualifiers: Hypertension type: primary hypertension Qualified Code(s): I10 - Essential (primary) hypertension (5) Nondisplaced fracture of lateral malleolus of left fibula, subsequent encounter for closed fracture with malunion Conclusion/Plan: seen by ortho and their instructions were: (1) I would continue your short leg boot walker until I recheck you in a month you can bear weight as tolerated on your left leg with your short leg boot walker. When you are sitting, you may remove the boot to work on moving your left ankle so that he would obtain more motion to your left ankle. 2) I will recheck you in 1 month and obtain new x-rays. Your diabetes may affect your healing of your fracture, more slowly to heal. Keep your left foot elevated is much as possible to reduce swelling. Your swelling will persist for 3 to 4 months I shared with PT today for when they do get to see her.
[2022-02-10] MEDS: MORPHINE 2 MG/ML CARPUJECT IVP PRN ×2 (14:08→18:08)
[2022-02-10] MEDS: VANCOMYCIN INJ 1.75 GM in SODIUM CHLORIDE 0.9% 500 ML IV SCH (14:56)
[2022-02-10] MEDS: FUROSEMIDE 40 MG/4 ML VIAL IVP SCH (16:05)
[2022-02-10] MEDS: INSULIN GLARGINE-YFGN 300 UNIT/3 ML PEN SUBQ SCH (20:58)
[2022-02-11] MEDS: INSULIN REGULAR HUMAN 300 UNIT/3 ML VIAL SUBQ SCH ×4 (00:05→19:19)
[2022-02-11] MEDS: SODIUM CHLORIDE 0.9% 1,000 ML IV SCH ×3 (00:11→13:40)
[2022-02-11] MEDS: PROPOFOL 1000 MG/100 ML 1,000 MG/100 ML BOTTLE IV SCH ×6 (01:02→21:01)
[2022-02-11] MEDS: MORPHINE 2 MG/ML CARPUJECT IVP PRN ×2 (01:09→14:27)
[2022-02-11] MEDS: metroNIDAZOLE 500 MG/100 ML 500 MG/100 ML BAG IV SCH ×3 (02:48→19:20)
[2022-02-11] MEDS: SODIUM CHLORIDE FLUSH 0.9% 10 ML SYRINGE IVP PRN ×4 (04:30→20:39)
[2022-02-11 04:31] LABS: BASOPHILS # (AUTO) 0.1 10^3/uL (0.0-0.1); BASOPHILS % (AUTO) 0.3 %; EOSINOPHILS # (AUTO) 0.3 10^3/uL (0.0-0.7); EOSINOPHILS % (AUTO) 1.8 %; HCT - HEMATOCRIT 28.7 % (37.0-47.0); HGB - HEMOGLOBIN 9.5 g/dL (12.0-16.0); LYMPHOCYTES # (AUTO) 1.9 10^3/uL (1.5-3.5); LYMPHOCYTES % (AUTO) 12.6 %; MEAN CORPUSCULAR HEMOGLOBIN 29.7 pg (27.0-31.0); MEAN CORPUSCULAR HGB CONC 33.1 g/dL (32.0-36.0); MEAN CORPUSCULAR VOLUME 89.7 fL (81.0-99.0); MEAN PLATELET VOLUME 8.9 fL (7.9-10.8); MONOCYTES # (AUTO) 1.5 10^3/uL (0.0-1.0); MONOCYTES % (AUTO) 9.8 %; NEUTROPHILS # (AUTO) 11.3 10^3/uL (1.5-6.6); PLT - PLATELET COUNT 253 10^3/uL (130-450); WHITE BLOOD COUNT 15.1 x10^3/uL (4.8-10.8)
[2022-02-11 04:33] LABS: CALCIUM, IONIZED 1.08 mmol/L (1.15-1.33); VBG PH 7.405 (7.31-7.41)
[2022-02-11 04:48] LABS: MAGNESIUM 1.9 mg/dL (1.7-2.8); PHOSPHORUS 4.5 mg/dL (2.5-4.6); POTASSIUM 3.4 mmol/L (3.5-5.0)
[2022-02-11] MEDS ORDERED: CALCIUM GLUC 1,000MG/50ML-NACL 1,000 MG/50 ML BAG IV ONE ×2 (04:49→21:03)
[2022-02-11] MEDS: PANTOPRAZOLE 40 MG VIAL IVP SCH (06:04)
[2022-02-11] MEDS: POTASSIUM CHLOR 20 MEQ/100 ML 20 MEQ/100 ML BAG IV SCH ×2 (06:05→07:15)
[2022-02-11] MEDS: CEFEPIME 1 GM in SODIUM CHLORIDE 0.9% MINIBAG 100 ML IV SCH ×3 (06:05→21:41)
[2022-02-11 07:23] LABS: ABG BASE EXCESS 0.3 mmol/L (-2.0-3.0); ABG HCO3 24.7 mmol/L (22.0-26.0); ABG OXYGEN SATURATION 92 % (94-98); ABG PCO2 39 mmHg (34-45); ABG PH 7.42 (7.35-7.45); ABG PO2 62 mmHg (80-100); ABG TCO2 25.9 MMOL/L (21.0-29.0); ALLEN TEST POSITIVE
[2022-02-11 07:24] LABS: ABG MODE OF VENTILATION ASSIST/CONTROL; ABG RESPIRATORY RATE 12 b/min
[2022-02-11] MEDS: SODIUM CHLORIDE FLUSH 0.9% 10 ML SYRINGE IVP SCH ×2 (08:19→18:18)
[2022-02-11] MEDS ORDERED: FUROSEMIDE 40 MG/4 ML VIAL IVP SCH (09:00)
[2022-02-11] MEDS: amLODIPine 5 MG TABLET GT SCH (09:40)
[2022-02-11] MEDS: CHLORHEXIDINE GLUCONATE 15 ML UDC PO SCH ×2 (09:44→20:13)
[2022-02-11] MEDS: FUROSEMIDE 40 MG/4 ML VIAL IVP SCH (09:44)
[2022-02-11] MEDS: ENOXAPARIN 40 MG/0.4 ML SYRINGE SUBQ SCH (09:44)
[2022-02-11] MEDS: ethyl alcohoL 62% SWAB AMPULE NAS SCH ×2 (09:44→20:13)
[2022-02-11 09:49] LABS: CALCIUM, IONIZED 1.1 mmol/L (1.15-1.33); VBG PH 7.4 (7.31-7.41)
[2022-02-11] MEDS: NYSTATIN POWDER 15 GM TOP SCH ×2 (10:58→20:13)
[2022-02-11] MEDS: polyethylene glycoL 3350 17 GM PACKET PO SCH (10:58)
[2022-02-11] MEDS ORDERED: POTASSIUM CHLORIDE 20 MEQ/15 ML UDC PO ONE (11:09)
[2022-02-11] MEDS: CALCIUM CARBONATE CHEW 500 MG TABLET PO SCH ×2 (12:49→15:47)
--- NOTE | 2022-02-11 13:45 | PROVIDER PROGRESS NOTE ---
Subjective - Prog Note Date Prog Note Date: 02/11/22 Prog Note Time: 13:43 - Subjective Pt reports feeling: No change Current Medications - Current Medications Current Medications: Active Medications Albuterol (Albuterol Neb 2.5 Mg/3 Ml) 2.5 mg INH Q4HR PRN PRN Reason: Wheezing Alcohol (Ethyl Alcohol 62% Swab Ampule) 1 amp WSELEY BID SERGIO Last Admin: 02/11/22 09:44 Dose: 1 amp Amlodipine Besylate (Amlodipine 5 Mg Tablet) 10 mg GT DAILY [facility] Last Admin: 02/11/22 09:40 Dose: 10 mg Calcium Carbonate/Glycine (Calcium Carbonate Chew 500 Mg Tablet) 1,250 mg PO Q4H [facility]; Protocol Stop: 02/11/22 16:01 Last Admin: 02/11/22 12:49 Dose: 1,250 mg Chlorhexidine Gluconate (Chlorhexidine Gluconate 15 Ml Udc) 15 ml PO BID [facility] Last Admin: 02/11/22 09:44 Dose: 15 ml Enoxaparin Sodium (Enoxaparin 40 Mg/0.4 Ml Syringe) 40 mg SUBQ DAILY [facility] Last Admin: 02/11/22 09:44 Dose: 40 mg Furosemide (Furosemide 40 Mg/4 Ml Vial) 40 mg IVP DAILY [facility] Last Admin: 02/11/22 09:44 Dose: 40 mg Propofol (Diprivan) 1,000 mg in 100 mls @ 6.18 mls/hr IV .[id number] SERGIO; Protocol Last Admin: 02/11/22 12:45 Dose: 40 mcg/kg/min, 24.72 mls/hr Cefepime HCl 1 gm/ Sodium (Chloride) 100 mls @ 200 mls/hr IV TID SERGIO Last Infusion: 02/11/22 06:37 Dose: Infused Vancomycin HCl 1.75 gm/ Sodium (Chloride) 500 mls @ 250 mls/hr IV Q24H [facility] Last Infusion: 02/10/22 17:41 Dose: Infused Sodium Chloride (Normal Saline 0.9%) 1,000 mls @ 100 mls/hr IV .Q10H [facility] Last Admin: 02/11/22 13:40 Dose: 100 mls/hr Sodium Chloride (Normal Saline 0.9%) 500 mls @ 20 mls/hr IV Q24H PRN PRN Reason: TKO RATE Last Infusion: 02/10/22 04:17 Dose: 0 mls/hr Metronidazole (Flagyl 500 Mg/100 Ml) 500 mg in 100 mls @ 100 mls/hr IV Q8H [facility] Last Admin: 02/11/22 11:55 Dose: 100 mls/hr Insulin Glargine-yfgn (Insulin Glargine-Yfgn 300 Unit/3 Ml Pen) 20 unit SUBQ QPM [facility] Last Admin: 02/10/22 20:58 Dose: 20 unit Insulin Human Regular (Insulin Regular Human 300 Unit/3 Ml Vial) 2 - 10 unit SUBQ Q6HR [facility]; Protocol Last Admin: 02/11/22 13:02 Dose: Not Given Morphine Sulfate (Morphine 2 Mg/Ml Carpuject) 2 mg IVP Q2HR PRN PRN Reason: Pain 8 to 10 Last Admin: 02/11/22 01:09 Dose: 2 mg Nystatin (Nystatin Powder 15 Gm) 1 applic TOP BID [facility] Last Admin: 02/11/22 10:58 Dose: 1 applic Ondansetron HCl (Ondansetron Odt 4 Mg Tablet) 4 mg TL Q6HR PRN PRN Reason: Nausea / Vomiting Ondansetron HCl (Ondansetron 4 Mg/2 Ml Vial) 4 mg IVP Q6HR PRN PRN Reason: Nausea / Vomiting Pantoprazole Sodium (Pantoprazole 40 Mg Vial) 40 mg IVP QDAC [facility] Last Admin: 02/11/22 06:04 Dose: 40 mg Polyethylene Glycol (Polyethylene Glycol 3350 17 Gm Packet) 17 gm PO DAILY [facility] Last Admin: 02/11/22 10:58 Dose: 17 gm Sodium Chloride (Sodium Chloride Flush 0.9% 10 Ml Syringe) 10 ml IVP 0100,0900,1700 [facility] Last Admin: 02/11/22 08:19 Dose: 10 ml Sodium Chloride (Sodium Chloride Flush 0.9% 10 Ml Syringe) 10 ml IVP PRN PRN PRN Reason: NEEDED PER PROVIDER ORDERS Last Admin: 02/11/22 06:04 Dose: 10 ml Sodium Chloride (Sodium Chloride Flush 0.9% 10 Ml Syringe) 20 ml IVP PRN PRN PRN Reason: After Blood Draw Last Admin: 02/11/22 09:42 Dose: 30 ml Amlodipine Besylate [Norvasc] 10 mg PO DAILY 02/08/22 Gabapentin [Neurontin] 600 mg PO BID 02/08/22 Insulin Glargine [Lantus Solostar] 36 units SUBQ QPM 02/08/22 Rosuvastatin Calcium [Crestor] 10 mg PO QPM 02/08/22 Trazodone HCl 400 mg PO QPM 02/08/22 glipiZIDE ER [Glucotrol Xl] 2.5 mg PO 0800 02/08/22 Objective - Vital Signs/Intake & Output Vital Signs: Vital Signs x48h Temp Pulse Pulse Resp BP Pulse Ox 02/11/22 13:00 86 16 138/68 H 90 L 02/11/22 12:00 37.5 C 86 14 143/70 H 91 L 02/11/22 11:18 86 02/11/22 11:00 85 19 142/67 H 92 02/11/22 09:59 85 18 171/78 H 92 02/11/22 09:00 87 17 164/67 H 92 02/11/22 08:59 88 02/11/22 08:00 37.5 C 85 18 160/73 H 91 L 02/11/22 07:29 88 02/11/22 07:00 82 16 153/65 H 92 02/11/22 06:00 83 16 160/70 H 92 Intake & Output: Intake & Output 02/08/22 02/09/22 02/10/22 02/11/22 23:59 23:59 23:59 23:59 Intake Total 2402.692 3331.046 3691.318 1989.636 Output Total 488 1177 2330 1960 Balance 7025.008 6898.046 1361.318 29.636 - Objective General Appearance: positive: No acute distress (She is sedated on a ventilator) Respiratory: positive: Rhonchi, Other (diminished breath sounds on the left) Cardiovascular: positive: Regular rate & rhythm Abdomen: positive: No distention, Abnml bowel sounds (hypoactive) Skin: positive: Warm, Dry Extremities: positive: Pedal edema - Lab Results Fish Bones: 02/11/22 04:15 02/11/22 09:35 Other Labs: Lab Results x24hrs 02/11/22 02/11/22 02/11/22 Range/Units 11:51 09:35 09:35 WBC (4.8-10.8) x10^3/uL RBC (4.20-5.40) 10^6/uL Hgb (12.0-16.0) g/dL Hct (37.0-47.0) % MCV (81.0-99.0) fL MCH (27.0-31.0) pg MCHC (32.0-36.0) g/dL RDW (12.0-15.0) % Plt Count (130-450) 10^3/uL MPV (7.9-10.8) fL Neut # (Auto) (1.5-6.6) 10^3/uL Lymph # (Auto) (1.5-3.5) 10^3/uL [place] # (Auto) (0.0-1.0) 10^3/uL Eos # (Auto) (0.0-0.7) 10^3/uL Baso # (Auto) (0.0-0.1) 10^3/uL Absolute Nucleated RBC x10^3/uL Nucleated RBC % /100WBC Bld Gas Analysis Time Sample Site ABG pH (7.35-7.45) ABG pCO2 (34-45) mmHg ABG pO2 (80-100) mmHg ABG HCO3 (22.0-26.0) mmol/L ABG Total CO2 (21.0-29.0) MMOL/L ABG O2 Saturation (94-98) % ABG Base Excess (-2.0-3.0) mmol/L Juan Test VBG pH 7.400 (7.31-7.41) Ionized Calcium 1.10 L (1.15-1.33) mmol/L Respiration Rate b/min O2 Delivery Device Vent Mode FiO2 Tidal Volume mL PEEP cmH2O Sodium (135-145) mmol/L Potassium 3.8 (3.5-5.0) mmol/L Chloride (101-111) mmol/L Carbon Dioxide (21-32) mmol/L Anion Gap (6-13) BUN (6-20) mg/dL Creatinine (0.4-1.0) mg/dL Estimated GFR (MDRD) (>89) Glucose (70-100) mg/dL POC Whole Bld Glucose 96 (70 - 100) mg/dL Calcium (8.5-10.3) mg/dL Phosphorus (2.5-4.6) mg/dL Magnesium (1.7-2.8) mg/dL B-Natriuretic Peptide (5-100) pg/mL 02/11/22 02/11/22 02/11/22 Range/Units 07:10 06:19 04:15 WBC (4.8-10.8) x10^3/uL RBC (4.20-5.40) 10^6/uL Hgb (12.0-16.0) g/dL Hct (37.0-47.0) % MCV (81.0-99.0) fL MCH (27.0-31.0) pg MCHC (32.0-36.0) g/dL RDW (12.0-15.0) % Plt Count (130-450) 10^3/uL MPV (7.9-10.8) fL Neut # (Auto) (1.5-6.6) 10^3/uL Lymph # (Auto) (1.5-3.5) 10^3/uL [place] # (Auto) (0.0-1.0) 10^3/uL Eos # (Auto) (0.0-0.7) 10^3/uL Baso # (Auto) (0.0-0.1) 10^3/uL Absolute Nucleated RBC x10^3/uL Nucleated RBC % /100WBC Bld Gas Analysis Time 0718 Sample Site LEFT RADIAL ABG pH 7.42 (7.35-7.45) ABG pCO2 39 (34-45) mmHg ABG pO2 62 L (80-100) mmHg ABG HCO3 24.7 (22.0-26.0) mmol/L ABG Total CO2 25.9 (21.0-29.0) MMOL/L ABG O2 Saturation 92 L (94-98) % ABG Base Excess 0.3 (-2.0-3.0) mmol/L Juan Test POSITIVE VBG pH (7.31-7.41) Ionized Calcium (1.15-1.33) mmol/L Respiration Rate 12 b/min O2 Delivery Device VENTILATOR Vent Mode ASSIST/CONTROL FiO2 100.00 Tidal Volume 450 mL PEEP 6 cmH2O Sodium (135-145) mmol/L Potassium (3.5-5.0) mmol/L Chloride (101-111) mmol/L Carbon Dioxide (21-32) mmol/L Anion Gap (6-13) BUN (6-20) mg/dL Creatinine (0.4-1.0) mg/dL Estimated GFR (MDRD) (>89) Glucose (70-100) mg/dL POC Whole Bld Glucose 90 (70 - 100) mg/dL Calcium (8.5-10.3) mg/dL Phosphorus (2.5-4.6) mg/dL Magnesium (1.7-2.8) mg/dL B-Natriuretic Peptide 100 (5-100) pg/mL 02/11/22 02/11/22 02/11/22 Range/Units 04:15 04:15 04:15 WBC 15.1 H (4.8-10.8) x10^3/uL RBC 3.20 L (4.20-5.40) 10^6/uL Hgb 9.5 L (12.0-16.0) g/dL Hct 28.7 L (37.0-47.0) % MCV 89.7 (81.0-99.0) fL MCH 29.7 (27.0-31.0) pg MCHC 33.1 (32.0-36.0) g/dL RDW 13.0 (12.0-15.0) % Plt Count 253 (130-450) 10^3/uL MPV 8.9 (7.9-10.8) fL Neut # (Auto) 11.3 H (1.5-6.6) 10^3/uL Lymph # (Auto) 1.9 (1.5-3.5) 10^3/uL [place] # (Auto) 1.5 H (0.0-1.0) 10^3/uL Eos # (Auto) 0.3 (0.0-0.7) 10^3/uL Baso # (Auto) 0.1 (0.0-0.1) 10^3/uL Absolute Nucleated RBC 0.00 x10^3/uL Nucleated RBC % 0.0 /100WBC Bld Gas Analysis Time Sample Site ABG pH (7.35-7.45) ABG pCO2 (34-45) mmHg ABG pO2 (80-100) mmHg ABG HCO3 (22.0-26.0) mmol/L ABG Total CO2 (21.0-29.0) MMOL/L ABG O2 Saturation (94-98) % ABG Base Excess (-2.0-3.0) mmol/L Juan Test VBG pH 7.405 (7.31-7.41) Ionized Calcium 1.08 L (1.15-1.33) mmol/L Respiration Rate b/min O2 Delivery Device Vent Mode FiO2 Tidal Volume mL PEEP cmH2O Sodium 141 (135-145) mmol/L Potassium 3.4 L (3.5-5.0) mmol/L Chloride 106 (101-111) mmol/L Carbon Dioxide 24 (21-32) mmol/L Anion Gap 11.0 (6-13) BUN 18 (6-20) mg/dL Creatinine 1.0 (0.4-1.0) mg/dL Estimated GFR (MDRD) 56 L (>89) Glucose 100 (70-100) mg/dL POC Whole Bld Glucose (70 - 100) mg/dL Calcium 8.0 L (8.5-10.3) mg/dL Phosphorus 4.5 (2.5-4.6) mg/dL Magnesium 1.9 (1.7-2.8) mg/dL B-Natriuretic Peptide (5-100) pg/mL 02/10/22 02/10/22 02/10/22 Range/Units 23:49 20:23 17:59 WBC (4.8-10.8) x10^3/uL RBC (4.20-5.40) 10^6/uL Hgb (12.0-16.0) g/dL Hct (37.0-47.0) % MCV (81.0-99.0) fL MCH (27.0-31.0) pg MCHC (32.0-36.0) g/dL RDW (12.0-15.0) % Plt Count (130-450) 10^3/uL MPV (7.9-10.8) fL Neut # (Auto) (1.5-6.6) 10^3/uL Lymph # (Auto) (1.5-3.5) 10^3/uL [place] # (Auto) (0.0-1.0) 10^3/uL Eos # (Auto) (0.0-0.7) 10^3/uL Baso # (Auto) (0.0-0.1) 10^3/uL Absolute Nucleated RBC x10^3/uL Nucleated RBC % /100WBC Bld Gas Analysis Time Sample Site ABG pH (7.35-7.45) ABG pCO2 (34-45) mmHg ABG pO2 (80-100) mmHg ABG HCO3 (22.0-26.0) mmol/L ABG Total CO2 (21.0-29.0) MMOL/L ABG O2 Saturation (94-98) % ABG Base Excess (-2.0-3.0) mmol/L Juan Test VBG pH (7.31-7.41) Ionized Calcium (1.15-1.33) mmol/L Respiration Rate b/min O2 Delivery Device Vent Mode FiO2 Tidal Volume mL PEEP cmH2O Sodium (135-145) mmol/L Potassium (3.5-5.0) mmol/L Chloride (101-111) mmol/L Carbon Dioxide (21-32) mmol/L Anion Gap (6-13) BUN (6-20) mg/dL Creatinine (0.4-1.0) mg/dL Estimated GFR (MDRD) (>89) Glucose (70-100) mg/dL POC Whole Bld Glucose 109 H 97 97 (70 - 100) mg/dL Calcium (8.5-10.3) mg/dL Phosphorus (2.5-4.6) mg/dL Magnesium (1.7-2.8) mg/dL B-Natriuretic Peptide (5-100) pg/mL 02/10/22 02/10/22 Range/Units 16:10 11:15 WBC (4.8-10.8) x10^3/uL RBC (4.20-5.40) 10^6/uL Hgb (12.0-16.0) g/dL Hct (37.0-47.0) % MCV (81.0-99.0) fL MCH (27.0-31.0) pg MCHC (32.0-36.0) g/dL RDW (12.0-15.0) % Plt Count (130-450) 10^3/uL MPV (7.9-10.8) fL Neut # (Auto) (1.5-6.6) 10^3/uL Lymph # (Auto) (1.5-3.5) 10^3/uL [place] # (Auto) (0.0-1.0) 10^3/uL Eos # (Auto) (0.0-0.7) 10^3/uL Baso # (Auto) (0.0-0.1) 10^3/uL Absolute Nucleated RBC x10^3/uL Nucleated RBC % /100WBC Bld Gas Analysis Time Sample Site ABG pH (7.35-7.45) ABG pCO2 (34-45) mmHg ABG pO2 (80-100) mmHg ABG HCO3 (22.0-26.0) mmol/L ABG Total CO2 (21.0-29.0) MMOL/L ABG O2 Saturation (94-98) % ABG Base Excess (-2.0-3.0) mmol/L Juan Test VBG pH (7.31-7.41) Ionized Calcium (1.15-1.33) mmol/L Respiration Rate b/min O2 Delivery Device Vent Mode FiO2 Tidal Volume mL PEEP cmH2O Sodium (135-145) mmol/L Potassium (3.5-5.0) mmol/L Chloride (101-111) mmol/L Carbon Dioxide (21-32) mmol/L Anion Gap (6-13) BUN (6-20) mg/dL Creatinine (0.4-1.0) mg/dL Estimated GFR (MDRD) (>89) Glucose (70-100) mg/dL POC Whole Bld Glucose 116 H (70 - 100) mg/dL Calcium (8.5-10.3) mg/dL Phosphorus (2.5-4.6) mg/dL Magnesium (1.7-2.8) mg/dL B-Natriuretic Peptide 87 (5-100) pg/mL Sepsis Event Note (H) - Evaluation Current Stage of Sepsis: Ruled out Possible source of Sepsis: positive: Pulmonary - Sepsis Criteria Sepsis Criteria: Respiratory: Increasing oxygen requirements, Metabolic: lactate > 2 mmol/L Assessment/Plan - Problem List (1) Acute respiratory failure with hypoxia Impression: No history of smoking, asthma, pneumonia or chronic lung disease that I can find from her limited history available. As such bilateral opacities can be either from pneumonia, congestive heart failure. 02/09 I re- reviewed her history and that she was eating candy. Refused her medications in the morning. The staff at her facility left her alone for a while, so what ever her respiratory arrest or event was, it was unwitnessed. Could she have swallowed a piece of candy and it went down the wrong way? She is on Fi02 100%, PEEP was changed to 6 this morning, then had to be increased to 8.5 by the afternoon because her oxygen was saturating at 88. TV 450. She generates up to 430 on her own. Peak pressures 25-27. pH 7.42, PC02 39, P02 62 Her BNP is 100. Assessment/plan See below #2 Continue vent support, sedation w propofol Echocardiogram to see if she really has congestive heart failure, next available is tuesday 02/13. Treat as pneumonia (2) Pneumonia with pleural effusion Conclusion/Plan: No antecedent history to provide context. Viral panel is negative. Blood cultures were not done in the emergency room before antibiotics (rocephin and azithromycin) given and done after. Lactic acidosis in the face of negative ketones. She is not on metformin to cause this. Not felt to be dehydrated and she has no liver disease to cause a lactic acidosis. As such, I am concluding she may be septic from pneumonia. Again it is a very sketchy history and that she had no antecedent illness prior to this episode. After review I am wondering about aspiration? Her US showed small bilateral pleural effusions, right > left. Dr. Sauer consulted for bronchoscopy and recommended that if the pleural effusion gets any bigger, thoracentesis or pleural catheters can be considered. Her bronchial culture returned positive for staphylococcus aureus, I started Cefipime and Vancomycin 02/09 and metronidazole 02/10 to cover anaerobic pathogens incase she did aspirate. Plan: Continue Vancomycin, cefepime, Metronidazole Qualifiers: Pneumonia type: due to unspecified organism Laterality: bilateral Lung location: unspecified part of lung Qualified Code(s): J18.9 - Pneumonia, unspecified organism (3) Type II diabetes mellitus, uncontrolled Conclusion/Plan: On Lantus 36 units, Glucotrol XL 2.5 mg at her care facility. Intolerance to metformin noted. I started Lantus 20 units and 3 units of short acting q6h since she is n.p.o. plus Sliding scale insulin This morning glucose 90. We will start her on tube feeds today and will adjust her sugars as needed. Plan: continue the lantus and SS. Qualifiers: Glycemic state: with hyperglycemia Qualified Code(s): E11.65 - Type 2 diabetes mellitus with hyperglycemia (4) Hypertension Conclusion/Plan: Medications at home are Norvasc but no diuretic, etc. Not on an NAA inhibitor Due to severe allergy Will give her medications via NG Qualifiers: Hypertension type: primary hypertension Qualified Code(s): I10 - Essential (primary) hypertension (5) Nondisplaced fracture of lateral malleolus of left fibula, subsequent encounter for closed fracture with malunion Conclusion/Plan: seen by ortho and their instructions were: (1) I would continue your short leg boot walker until I recheck you in a month you can bear weight as tolerated on your left leg with your short leg boot walker. When you are sitting, you may remove the boot to work on moving your left ankle so that he would obtain more motion to your left ankle. 2) I will recheck you in 1 month and obtain new x-rays. Your diabetes may affect your healing of your fracture, more slowly to heal. Keep your left foot elevated is much as possible to reduce swelling. Your swelling will persist for 3 to 4 months I shared with PT today for when they do get to see her.
[2022-02-11] MEDS: VANCOMYCIN INJ 1.75 GM in SODIUM CHLORIDE 0.9% 500 ML IV SCH (15:13)
[2022-02-11] MEDS ORDERED: ACETAMINOPHEN 650 MG SUPP PR STA (15:26)
[2022-02-11 15:27] LABS: VANCOMYCIN,TROUGH 15.3 ug/mL (10.0-20.0)
--- NOTE | 2022-02-11 15:57 | PHARMACY PROGRESS NOTE ---
- Therapy Status Vancomycin regimen day #: 3 Therapy status: Awaiting steady state Treatment indication: MRSA PNEUMONIA Trough goal: 15-20 - [place]CKINLEY Risk Risk level for Acute Kidney Injury: High Acute Kidney Injury risk factors: Wt >100kg or BMI >40, IV contrast within 72 hrs, Goal trough >15, Chronic baseline hypertension, Diabetes, Admission to ICU - Monitoring and Recommendation Clinical response to treatment: I&O Previous 24 hours 02/09/22 02/10/22 02/11/22 23:59 23:59 23:59 Intake Total 3331.046 3691.318 2222.969 Output Total 1177 2330 2295 Balance 2154.046 1361.318 -72.031 Lab Results 02/11/22 02/10/22 02/09/22 04:15 04:20 05:28 BUN 18 21 H 31 H Creatinine 1.0 0.8 1.0 Estimated GFR (MDRD) 56 L 73 L 56 L 02/08/22 15:05 BUN 30 H Creatinine 1.2 H Estimated GFR (MDRD) 46 L Vancomycin Monitoring 02/11/22 15:10 Vancomycin Trough 15.3 Cultures 02/09/22 12:00 Bronchial Washings Respiratory Culture - Final Methicillin Resist S. Aureus 02/08/22 19:14 Blood - Central Line Blood Culture - Preliminary NO GROWTH AFTER 2 DAYS 02/08/22 18:27 Blood - Central Line Blood Culture - Preliminary NO GROWTH AFTER 2 DAYS Monitoring plan: Daily serum creatinine Next trough due prior to maintenance dose #: 4 Next trough due (date/time): 02/13 AT 1430 Areas for additional monitoring: IV to PO when appropriate, Therapy de- escalation based on culture results, Acute Kidney Injury Pharmacy recommendation: Continue current regime
[2022-02-11] MEDS ORDERED: IBUPROFEN 400 MG TABLET PO PRN (18:16)
[2022-02-11 20:58] LABS: CALCIUM, IONIZED 1.08 mmol/L (1.15-1.33); VBG PH 7.382 (7.31-7.41)
[2022-02-11] MEDS ORDERED: POTASSIUM CHLOR 20 MEQ/100 ML 20 MEQ/100 ML BAG IV ONE (21:09)
[2022-02-11] MEDS: INSULIN GLARGINE-YFGN 300 UNIT/3 ML PEN SUBQ SCH (21:46)
[2022-02-12] MEDS: ACETAMINOPHEN 650 MG SUPP PR PRN (00:31)
[2022-02-12] MEDS: INSULIN REGULAR HUMAN 300 UNIT/3 ML VIAL SUBQ SCH ×4 (00:31→17:41)
[2022-02-12] MEDS: SODIUM CHLORIDE FLUSH 0.9% 10 ML SYRINGE IVP SCH ×4 (01:05→20:46)
[2022-02-12] MEDS: PROPOFOL 1000 MG/100 ML 1,000 MG/100 ML BOTTLE IV SCH ×7 (01:06→23:43)
[2022-02-12] MEDS: SODIUM CHLORIDE 0.9% 500 ML IV PRN (01:20)
[2022-02-12] MEDS: metroNIDAZOLE 500 MG/100 ML 500 MG/100 ML BAG IV SCH ×3 (02:45→19:02)
[2022-02-12] MEDS: SODIUM CHLORIDE FLUSH 0.9% 10 ML SYRINGE IVP PRN ×5 (02:53→17:22)
[2022-02-12 02:59] LABS: BASOPHILS % (AUTO) 0.3 %; HCT - HEMATOCRIT 25.4 % (37.0-47.0); HGB - HEMOGLOBIN 8.6 g/dL (12.0-16.0); LYMPHOCYTES % (AUTO) 9.9 %; MEAN CORPUSCULAR HGB CONC 33.9 g/dL (32.0-36.0); MEAN CORPUSCULAR VOLUME 88.5 fL (81.0-99.0); MEAN PLATELET VOLUME 9.1 fL (7.9-10.8); MONOCYTES % (AUTO) 12.5 %; NEUTROPHILS % (AUTO) 74.6 %; PLT - PLATELET COUNT 256 10^3/uL (130-450); RED BLOOD COUNT 2.87 10^6/uL (4.20-5.40); RED CELL DISTRIBUTION WIDTH 12.9 % (12.0-15.0); WHITE BLOOD COUNT 16.7 x10^3/uL (4.8-10.8)
[2022-02-12 03:03] LABS: ABNORMAL LYMPHS % (MANUAL) 0 %
[2022-02-12 03:11] LABS: CALCIUM 8.3 mg/dL (8.5-10.3); CREATININE 1.4 mg/dL (0.4-1.0); MAGNESIUM 1.8 mg/dL (1.7-2.8); PHOSPHORUS 5.3 mg/dL (2.5-4.6); POTASSIUM 3.8 mmol/L (3.5-5.0)
[2022-02-12 03:18] LABS: CALCIUM, IONIZED 1.17 mmol/L (1.15-1.33); VBG PH 7.34 (7.31-7.41)
[2022-02-12] MEDS ORDERED: POTASSIUM CHLOR 20 MEQ/100 ML 20 MEQ/100 ML BAG IV ONE (03:33)
[2022-02-12 04:20] LABS: BAND NEUTROPHILS % (MANUAL) 1 %; BASOPHILS # (MANUAL) 0.3 10^3/uL (0-0.1); BASOPHILS % (MANUAL) 2 %; DIFFERENTIAL COMMENT MANUAL DIFFERENTIAL; LYMPHOCYTES # (MANUAL) 1.3 10^3/uL (1.5-3.5); LYMPHOCYTES % (MANUAL) 8 %; PLATELET ESTIMATE, MANUAL NORMAL (130-450,000) (NORMAL); RBC MORPHOLOGY (MULTIPLE) NORMAL APPEARANCE (NORMAL)
[2022-02-12] MEDS: CEFEPIME 1 GM in SODIUM CHLORIDE 0.9% MINIBAG 100 ML IV SCH ×3 (06:02→22:31)
[2022-02-12] MEDS: PANTOPRAZOLE 40 MG VIAL IVP SCH (06:20)
[2022-02-12 06:23] LABS: ABG HCO3 22.2 mmol/L (22.0-26.0); ABG PCO2 35 mmHg (34-45); ABG PH 7.41 (7.35-7.45)
[2022-02-12 06:25] LABS: ABG MODE OF VENTILATION ASSIST/CONTROL; ABG RESPIRATORY RATE 12 b/min
[2022-02-12 06:27] LABS: ABG OXYGEN SATURATION 87 % (94-98); ABG PO2 53 mmHg (80-100)
[2022-02-12] MEDS: CHLORHEXIDINE GLUCONATE 15 ML UDC PO SCH ×2 (09:50→20:30)
[2022-02-12] MEDS: amLODIPine 5 MG TABLET GT SCH (09:50)
[2022-02-12] MEDS: ethyl alcohoL 62% SWAB AMPULE NAS SCH ×2 (09:50→20:31)
[2022-02-12] MEDS: ENOXAPARIN 40 MG/0.4 ML SYRINGE SUBQ SCH (09:50)
[2022-02-12] MEDS: FUROSEMIDE 40 MG/4 ML VIAL IVP SCH ×2 (09:51→17:14)
[2022-02-12] MEDS: NYSTATIN POWDER 15 GM TOP SCH ×2 (09:51→20:30)
[2022-02-12 10:55] LABS: TRIGLYCERIDES 163 mg/dL
[2022-02-12 11:36] LABS: PREALBUMIN 13 mg/dL (18-45)
[2022-02-12] MEDS: MAGNESIUM OXIDE 400 MG TABLET PO ONE ×2 (12:28→13:19)
[2022-02-12] MEDS: polyethylene glycoL 3350 17 GM PACKET PO SCH (12:29)
--- NOTE | 2022-02-12 13:09 | PROVIDER PROGRESS NOTE ---
Subjective - Prog Note Date Prog Note Date: 02/12/22 Prog Note Time: 13:24 - Subjective Subjective: Patient is intubated, on propofol. Occasionally eyes will open to sound or noxious stimuli but not meaningful Current Medications - Current Medications Current Medications: Active Medications Acetaminophen (Acetaminophen 650 Mg Supp) [address] Q6HR PRN PRN Reason: Pain or Fever > 38C (100.4F) Last Admin: 02/12/22 00:31 Dose: 650 mg Albuterol (Albuterol Neb 2.5 Mg/3 Ml) 2.5 mg INH Q4HR PRN PRN Reason: Wheezing Alcohol (Ethyl Alcohol 62% Swab Ampule) 1 amp WESLEY BID SERGIO Last Admin: 02/12/22 09:50 Dose: 1 amp Amlodipine Besylate (Amlodipine 5 Mg Tablet) 10 mg GT DAILY SERG[facility] Last Admin: 02/12/22 09:50 Dose: 10 mg Chlorhexidine Gluconate (Chlorhexidine Gluconate 15 Ml Udc) 15 ml PO BID SERGIO Last Admin: 02/12/22 09:50 Dose: 15 ml Enoxaparin Sodium (Enoxaparin 40 Mg/0.4 Ml Syringe) 40 mg SUBQ DAILY [facility] Last Admin: 02/12/22 09:50 Dose: 40 mg Furosemide (Furosemide 40 Mg/4 Ml Vial) 40 mg IVP DAILY [facility] Last Admin: 02/12/22 09:51 Dose: 40 mg Propofol (Diprivan) 1,000 mg in 100 mls @ 6.18 mls/hr IV .[id number] SERGIO; Protocol Last Admin: 02/12/22 12:17 Dose: 40 mcg/kg/min, 24.72 mls/hr Cefepime HCl 1 gm/ Sodium (Chloride) 100 mls @ 200 mls/hr IV TID SERGIO Last Infusion: 02/12/22 06:40 Dose: Infused Vancomycin HCl 1.75 gm/ Sodium (Chloride) 500 mls @ 250 mls/hr IV Q24H SERG[facility] Last Infusion: 02/11/22 20:39 Dose: Infused Sodium Chloride (Normal Saline 0.9%) 500 mls @ 20 mls/hr IV Q24H PRN PRN Reason: TKO RATE Last Infusion: 02/12/22 07:00 Dose: 20 mls/hr Metronidazole (Flagyl 500 Mg/100 Ml) 500 mg in 100 mls @ 100 mls/hr IV Q8H [facility] Last Infusion: 02/12/22 12:10 Dose: Infused Magnesium Sulfate (Magnesium Sulfate) 2 gm in 50 mls @ 50 mls/hr IV ONCE ONE; Protocol Stop: 02/12/22 14:18 Ibuprofen (Ibuprofen 400 Mg Tablet) 400 mg PO Q6HR PRN PRN Reason: FEVER > 100.5 F Last Admin: 02/11/22 21:42 Dose: 400 mg Insulin Glargine-yfgn (Insulin Glargine-Yfgn 300 Unit/3 Ml Pen) 20 unit SUBQ QPM [facility] Last Admin: 02/11/22 21:46 Dose: 20 unit Insulin Human Regular (Insulin Regular Human 300 Unit/3 Ml Vial) 2 - 10 unit SUBQ Q6HR [facility]; Protocol Last Admin: 02/12/22 12:30 Dose: 4 unit Morphine Sulfate (Morphine 2 Mg/Ml Carpuject) 2 mg IVP Q2HR PRN PRN Reason: Pain 8 to 10 Last Admin: 02/11/22 14:27 Dose: 2 mg Nystatin (Nystatin Powder 15 Gm) 1 applic TOP BID [facility] Last Admin: 02/12/22 09:51 Dose: 1 applic Ondansetron HCl (Ondansetron Odt 4 Mg Tablet) 4 mg TL Q6HR PRN PRN Reason: Nausea / Vomiting Ondansetron HCl (Ondansetron 4 Mg/2 Ml Vial) 4 mg IVP Q6HR PRN PRN Reason: Nausea / Vomiting Pantoprazole Sodium (Pantoprazole 40 Mg Vial) 40 mg IVP QDAC [facility] Last Admin: 02/12/22 06:20 Dose: 40 mg Polyethylene Glycol (Polyethylene Glycol 3350 17 Gm Packet) 17 gm PO DAILY [facility] Last Admin: 02/12/22 12:29 Dose: Not Given Sodium Chloride (Sodium Chloride Flush 0.9% 10 Ml Syringe) 10 ml IVP 0100,0900,1700 [facility] Last Admin: 02/12/22 09:52 Dose: 10 ml Sodium Chloride (Sodium Chloride Flush 0.9% 10 Ml Syringe) 10 ml IVP PRN PRN PRN Reason: NEEDED PER PROVIDER ORDERS Last Admin: 02/11/22 06:04 Dose: 10 ml Sodium Chloride (Sodium Chloride Flush 0.9% 10 Ml Syringe) 20 ml IVP PRN PRN PRN Reason: After Blood Draw Last Admin: 02/12/22 06:20 Dose: 20 ml Amlodipine Besylate [Norvasc] 10 mg PO DAILY 02/08/22 Gabapentin [Neurontin] 600 mg PO BID 02/08/22 Insulin Glargine [Lantus Solostar] 36 units SUBQ QPM 02/08/22 Rosuvastatin Calcium [Crestor] 10 mg PO QPM 02/08/22 Trazodone HCl 400 mg PO QPM 02/08/22 glipiZIDE ER [Glucotrol Xl] 2.5 mg PO 0800 02/08/22 Objective - Vital Signs/Intake & Output Reviewed Vital Signs: Yes Vital Signs: Vital Signs Temp Pulse Pulse Resp BP Pulse Ox 02/12/22 12:00 37.4 C 74 20 121/59 L 91 L 02/12/22 11:00 64 22 106/55 L 92 02/12/22 10:37 68 02/12/22 10:00 69 16 110/54 L 91 L Intake & Output: Intake & Output 02/09/22 02/10/22 02/11/22 02/12/22 23:59 23:59 23:59 23:59 Intake Total 3331.046 3691.318 3734.664 2397.423 Output Total 1177 2330 2966 353 Balance 2154.046 1361.318 875.506 0245.423 - Objective General Appearance: positive: Other (Intubated morbidly obese female) Eyes Bilateral: positive: PERRL, EOMI ENT: positive: Other (ET tube in place) Neck: negative: Stiff neck Respiratory: positive: Rales, Rhonchi. negative: Wheezes Cardiovascular: positive: Regular rate & rhythm Abdomen: positive: Nml bowel sounds, No distention Skin: positive: Warm, Dry, Pallor Extremities: positive: Pedal edema Neurologic/Psychiatric: positive: Other (Intubated and sedated) - Lab Results Fish Bones: 02/12/22 02:55 02/12/22 06:00 Other Labs: Lab Results x24hrs 02/12/22 02/12/22 02/12/22 Range/Units 12:05 06:13 06:06 WBC (4.8-10.8) x10^3/uL RBC (4.20-5.40) 10^6/uL Hgb (12.0-16.0) g/dL Hct (37.0-47.0) % MCV (81.0-99.0) fL MCH (27.0-31.0) pg MCHC (32.0-36.0) g/dL RDW (12.0-15.0) % Plt Count (130-450) 10^3/uL MPV (7.9-10.8) fL Neut # (Auto) Lymph # (Auto) [place] # (Auto) Eos # (Auto) Baso # (Auto) Absolute Nucleated RBC Total Counted Band Neuts % (Manual) (0 - 10) % Abnorm Lymph % (Manual) % Nucleated RBC % Neutrophils # (Manual) (1.5-6.6) 10^3/uL Lymphocytes # (Manual) (1.5-3.5) 10^3/uL Monocytes # (Manual) (0.0-1.0) 10^3/uL Eosinophils # (Manual) (0-0.7) 10^3/uL Basophils # (Manual) (0-0.1) 10^3/uL Differential Comment Platelet Estimate (NORMAL) RBC Morph Micro Appear (NORMAL) Bld Gas Analysis Time 0611 Sample Site RIGHT BRACHIAL ABG pH 7.41 (7.35-7.45) ABG pCO2 35 (34-45) mmHg ABG pO2 53 L* (80-100) mmHg ABG HCO3 22.2 (22.0-26.0) mmol/L ABG Total CO2 23.0 (21.0-29.0) MMOL/L ABG O2 Saturation 87 L* (94-98) % ABG Base Excess -3.0 L (-2.0-3.0) mmol/L Juan Test UNKNOWN VBG pH (7.31-7.41) Ionized Calcium (1.15-1.33) mmol/L Respiration Rate 12 b/min O2 Delivery Device VENTILATOR Vent Mode ASSIST/CONTROL FiO2 100.00 Tidal Volume 450 mL PEEP 8 cmH2O Sodium (135-145) mmol/L Potassium (3.5-5.0) mmol/L Chloride (101-111) mmol/L Carbon Dioxide (21-32) mmol/L Anion Gap (6-13) BUN (6-20) mg/dL Creatinine (0.4-1.0) mg/dL Estimated GFR (MDRD) (>89) Glucose (70-100) mg/dL POC Whole Bld Glucose 198 H 174 H (70 - 100) mg/dL Calcium (8.5-10.3) mg/dL Phosphorus (2.5-4.6) mg/dL Magnesium (1.7-2.8) mg/dL B-Natriuretic Peptide (5-100) pg/mL Prealbumin (18-45) mg/dL Triglycerides ( - 149) mg/dL Last Dose Date Last Dose Time Vancomycin Trough (10.0-20.0) ug/mL 02/12/22 02/12/22 02/12/22 Range/Units 06:00 06:00 02:55 WBC (4.8-10.8) x10^3/uL RBC (4.20-5.40) 10^6/uL Hgb (12.0-16.0) g/dL Hct (37.0-47.0) % MCV (81.0-99.0) fL MCH (27.0-31.0) pg MCHC (32.0-36.0) g/dL RDW (12.0-15.0) % Plt Count (130-450) 10^3/uL MPV (7.9-10.8) fL Neut # (Auto) Lymph # (Auto) [place] # (Auto) Eos # (Auto) Baso # (Auto) Absolute Nucleated RBC Total Counted Band Neuts % (Manual) (0 - 10) % Abnorm Lymph % (Manual) % Nucleated RBC % Neutrophils # (Manual) (1.5-6.6) 10^3/uL Lymphocytes # (Manual) (1.5-3.5) 10^3/uL Monocytes # (Manual) (0.0-1.0) 10^3/uL Eosinophils # (Manual) (0-0.7) 10^3/uL Basophils # (Manual) (0-0.1) 10^3/uL Differential Comment Platelet Estimate (NORMAL) RBC Morph Micro Appear (NORMAL) Bld Gas Analysis Time Sample Site ABG pH (7.35-7.45) ABG pCO2 (34-45) mmHg ABG pO2 (80-100) mmHg ABG HCO3 (22.0-26.0) mmol/L ABG Total CO2 (21.0-29.0) MMOL/L ABG O2 Saturation (94-98) % ABG Base Excess (-2.0-3.0) mmol/L Juan Test VBG pH (7.31-7.41) Ionized Calcium (1.15-1.33) mmol/L Respiration Rate b/min O2 Delivery Device Vent Mode FiO2 Tidal Volume mL PEEP cmH2O Sodium (135-145) mmol/L Potassium 4.7 (3.5-5.0) mmol/L Chloride (101-111) mmol/L Carbon Dioxide (21-32) mmol/L Anion Gap (6-13) BUN (6-20) mg/dL Creatinine (0.4-1.0) mg/dL Estimated GFR (MDRD) (>89) Glucose (70-100) mg/dL POC Whole Bld Glucose (70 - 100) mg/dL Calcium (8.5-10.3) mg/dL Phosphorus (2.5-4.6) mg/dL Magnesium (1.7-2.8) mg/dL B-Natriuretic Peptide 114 H (5-100) pg/mL Prealbumin 13 L (18-45) mg/dL Triglycerides 163 H ( - 149) mg/dL Last Dose Date Last Dose Time Vancomycin Trough (10.0-20.0) ug/mL 02/12/22 02/12/22 02/12/22 Range/Units 02:55 02:55 02:55 WBC 16.7 H (4.8-10.8) x10^3/uL RBC 2.87 L (4.20-5.40) 10^6/uL Hgb 8.6 L (12.0-16.0) g/dL Hct 25.4 L (37.0-47.0) % MCV 88.5 (81.0-99.0) fL MCH 30.0 (27.0-31.0) pg MCHC 33.9 (32.0-36.0) g/dL RDW 12.9 (12.0-15.0) % Plt Count 256 (130-450) 10^3/uL MPV 9.1 (7.9-10.8) fL Neut # (Auto) Not Reportable Lymph # (Auto) Not Reportable [place] # (Auto) Not Reportable Eos # (Auto) Not Reportable Baso # (Auto) Not Reportable Absolute Nucleated RBC Not Reportable Total Counted 100 Band Neuts % (Manual) 1 (0 - 10) % Abnorm Lymph % (Manual) 0 % Nucleated RBC % Not Reportable Neutrophils # (Manual) 14.0 H (1.5-6.6) 10^3/uL Lymphocytes # (Manual) 1.3 L (1.5-3.5) 10^3/uL Monocytes # (Manual) 1.0 (0.0-1.0) 10^3/uL Eosinophils # (Manual) 0.0 (0-0.7) 10^3/uL Basophils # (Manual) 0.3 H (0-0.1) 10^3/uL Differential Comment MANUAL DIFFERENTIAL Platelet Estimate NORMAL (130-450,000) (NORMAL) RBC Morph Micro Appear NORMAL APPEARANCE (NORMAL) Bld Gas Analysis Time Sample Site ABG pH (7.35-7.45) ABG pCO2 (34-45) mmHg ABG pO2 (80-100) mmHg ABG HCO3 (22.0-26.0) mmol/L ABG Total CO2 (21.0-29.0) MMOL/L ABG O2 Saturation (94-98) % ABG Base Excess (-2.0-3.0) mmol/L Juan Test VBG pH 7.340 (7.31-7.41) Ionized Calcium 1.17 (1.15-1.33) mmol/L Respiration Rate b/min O2 Delivery Device Vent Mode FiO2 Tidal Volume mL PEEP cmH2O Sodium 140 (135-145) mmol/L Potassium 3.8 (3.5-5.0) mmol/L Chloride 106 (101-111) mmol/L Carbon Dioxide 23 (21-32) mmol/L Anion Gap 11.0 (6-13) BUN 22 H (6-20) mg/dL Creatinine 1.4 H (0.4-1.0) mg/dL Estimated GFR (MDRD) 38 L (>89) Glucose 147 H (70-100) mg/dL POC Whole Bld Glucose (70 - 100) mg/dL Calcium 8.3 L (8.5-10.3) mg/dL Phosphorus 5.3 H (2.5-4.6) mg/dL Magnesium 1.8 (1.7-2.8) mg/dL B-Natriuretic Peptide (5-100) pg/mL Prealbumin (18-45) mg/dL Triglycerides ( - 149) mg/dL Last Dose Date Last Dose Time Vancomycin Trough (10.0-20.0) ug/mL 02/12/22 02/11/22 02/11/22 Range/Units 00:26 20:43 20:24 WBC (4.8-10.8) x10^3/uL RBC (4.20-5.40) 10^6/uL Hgb (12.0-16.0) g/dL Hct (37.0-47.0) % MCV (81.0-99.0) fL MCH (27.0-31.0) pg MCHC (32.0-36.0) g/dL RDW (12.0-15.0) % Plt Count (130-450) 10^3/uL MPV (7.9-10.8) fL Neut # (Auto) Lymph # (Auto) [place] # (Auto) Eos # (Auto) Baso # (Auto) Absolute Nucleated RBC Total Counted Band Neuts % (Manual) (0 - 10) % Abnorm Lymph % (Manual) % Nucleated RBC % Neutrophils # (Manual) (1.5-6.6) 10^3/uL Lymphocytes # (Manual) (1.5-3.5) 10^3/uL Monocytes # (Manual) (0.0-1.0) 10^3/uL Eosinophils # (Manual) (0-0.7) 10^3/uL Basophils # (Manual) (0-0.1) 10^3/uL Differential Comment Platelet Estimate (NORMAL) RBC Morph Micro Appear (NORMAL) Bld Gas Analysis Time Sample Site ABG pH (7.35-7.45) ABG pCO2 (34-45) mmHg ABG pO2 (80-100) mmHg ABG HCO3 (22.0-26.0) mmol/L ABG Total CO2 (21.0-29.0) MMOL/L ABG O2 Saturation (94-98) % ABG Base Excess (-2.0-3.0) mmol/L Juan Test VBG pH 7.382 (7.31-7.41) Ionized Calcium 1.08 L (1.15-1.33) mmol/L Respiration Rate b/min O2 Delivery Device Vent Mode FiO2 Tidal Volume mL PEEP cmH2O Sodium (135-145) mmol/L Potassium (3.5-5.0) mmol/L Chloride (101-111) mmol/L Carbon Dioxide (21-32) mmol/L Anion Gap (6-13) BUN (6-20) mg/dL Creatinine (0.4-1.0) mg/dL Estimated GFR (MDRD) (>89) Glucose (70-100) mg/dL POC Whole Bld Glucose 138 H 98 (70 - 100) mg/dL Calcium (8.5-10.3) mg/dL Phosphorus (2.5-4.6) mg/dL Magnesium (1.7-2.8) mg/dL B-Natriuretic Peptide (5-100) pg/mL Prealbumin (18-45) mg/dL Triglycerides ( - 149) mg/dL Last Dose Date Last Dose Time Vancomycin Trough (10.0-20.0) ug/mL 02/11/22 02/11/22 02/11/22 Range/Units 20:24 18:31 15:10 WBC (4.8-10.8) x10^3/uL RBC (4.20-5.40) 10^6/uL Hgb (12.0-16.0) g/dL Hct (37.0-47.0) % MCV (81.0-99.0) fL MCH (27.0-31.0) pg MCHC (32.0-36.0) g/dL RDW (12.0-15.0) % Plt Count (130-450) 10^3/uL MPV (7.9-10.8) fL Neut # (Auto) Lymph # (Auto) [place] # (Auto) Eos # (Auto) Baso # (Auto) Absolute Nucleated RBC Total Counted Band Neuts % (Manual) (0 - 10) % Abnorm Lymph % (Manual) % Nucleated RBC % Neutrophils # (Manual) (1.5-6.6) 10^3/uL Lymphocytes # (Manual) (1.5-3.5) 10^3/uL Monocytes # (Manual) (0.0-1.0) 10^3/uL Eosinophils # (Manual) (0-0.7) 10^3/uL Basophils # (Manual) (0-0.1) 10^3/uL Differential Comment Platelet Estimate (NORMAL) RBC Morph Micro Appear (NORMAL) Bld Gas Analysis Time Sample Site ABG pH (7.35-7.45) ABG pCO2 (34-45) mmHg ABG pO2 (80-100) mmHg ABG HCO3 (22.0-26.0) mmol/L ABG Total CO2 (21.0-29.0) MMOL/L ABG O2 Saturation (94-98) % ABG Base Excess (-2.0-3.0) mmol/L Juan Test VBG pH (7.31-7.41) Ionized Calcium (1.15-1.33) mmol/L Respiration Rate b/min O2 Delivery Device Vent Mode FiO2 Tidal Volume mL PEEP cmH2O Sodium (135-145) mmol/L Potassium 3.7 (3.5-5.0) mmol/L Chloride (101-111) mmol/L Carbon Dioxide (21-32) mmol/L Anion Gap (6-13) BUN (6-20) mg/dL Creatinine (0.4-1.0) mg/dL Estimated GFR (MDRD) (>89) Glucose (70-100) mg/dL POC Whole Bld Glucose 81 (70 - 100) mg/dL Calcium (8.5-10.3) mg/dL Phosphorus (2.5-4.6) mg/dL Magnesium (1.7-2.8) mg/dL B-Natriuretic Peptide (5-100) pg/mL Prealbumin (18-45) mg/dL Triglycerides ( - 149) mg/dL Last Dose Date 02/11/22 Last Dose Time 1513 Vancomycin Trough 15.3 (10.0-20.0) ug/mL Sepsis Event Note (H) - Evaluation Current Stage of Sepsis: Ruled out Possible source of Sepsis: positive: Pulmonary - Sepsis Criteria Sepsis Criteria: Respiratory: Increasing oxygen requirements, Metabolic: lactate > 2 mmol/L Assessment/Plan - Problem List (1) MRSA (methicillin resistant staphylococcus aureus) pneumonia Impression: Unclear what the event was that made this woman have problem #2. She does have diabetes and she does live in a longterm but she has no history of IV drug abuse. Nevertheless her sputum cultures are growing out MRSA. She was initially on Rocephin and azithromycin. She was then switched to cefepime. Day #4. And Flagyl. Day #3. Once her MRSA cultures were resulted February 10, vancomycin was added. Day #2. At this time no change in antibiotics. White cell count is slowly responding. She was 20.5 in admission and is 16.7 today. Qualifiers: Laterality: bilateral (2) ARDS (adult respiratory distress syndrome) Impression: She presented as acute respiratory failure in the field when picked up by EMS. She was immediately intubated and has remained intubated since February 08. She has been on an FiO2 of 100% since that time. PEEP started at 6, and is currently at 8. in spite of that her PO2 is slowly drifting down. She remained stable for the first 2 days and started drifting down on her 02 Sats below 90% yesterday. No history of smoking, asthma, pneumonia or chronic lung disease that I can find from her limited history available. I started wondering about what caused this event. Could she have aspirated, could she have inhaled a foreign body. General surgery on-call was able to see her February 09 and do a type of bronchoscopy where he got back some red granular secreation that were not blood . those were submitted for culture and her sputum grew out MRSA. Today On assist-control, rate of 12, tidal volume 450, and a PEEP of 8 her morning blood gases a pH of 7.41. PCO2 35. PO2 53. Base excess -3. I was able to speak to Dr. Campbell, ICU on-call at [facility]. Her numbers [phone]. I had spoken to the transfer center and they have no beds. After discussing the case with Dr. Campbell, she recommends: +Slowly increasing PEEP over the next hour from 8, to 10, to 12. Go as high as 16 and slowly reduce her FiO2 to at least 70 or 80%. Her pressures may drop with this and support her with dopamine. + Make sure she is on DVT prophylaxis, she is +Make sure she is getting adequate nutrition, she is with tube feedings as started yesterday + Antibiotic coverage is adequate with cefepime, vancomycin and Flagyl + See if we can make arrangements for transfer I have discussed the case with respiratory therapy. Regular start making those changes for the PEEP. If I cannot get her transferred, I will need to think about long-term vent support with tracheostomy. Qualifiers: Pneumonia type: due to unspecified organism Laterality: bilateral Lung location: unspecified part of lung Qualified Code(s): J18.9 - Pneumonia, unspecified organism (3) Type II diabetes mellitus, uncontrolled Conclusion/Plan: On Lantus 36 units, Glucotrol XL 2.5 mg at her care facility. Intolerance to metformin noted. I started Lantus 20 units and 3 units of short acting q6h since she was n.p.o. plus Sliding scale insulin. I stopped the 3 units q6h when glucose was too tightly controlled and I was worried about hypoglycemia Tube feeding started February 11. Glucose was 109, 90, 81, 98 that day. Today glucoses 138, 174, 198. Plan: Increase Lantus to 24 units and continue sliding scale insulin Qualifiers: Glycemic state: with hyperglycemia Qualified Code(s): E11.65 - Type 2 diabetes mellitus with hyperglycemia (4) Hypertension Conclusion/Plan: Medications at home are Norvasc but no diuretic, etc. Not on an NAA inhibitor Due to severe allergy Will give her Norvasc via NG Qualifiers: Hypertension type: primary hypertension Qualified Code(s): I10 - Essential (primary) hypertension (5) Nondisplaced fracture of lateral malleolus of left fibula, subsequent encounter for closed fracture with malunion Conclusion/Plan: seen by ortho and their instructions were: (1) I would continue your short leg boot walker until I recheck you in a month you can bear weight as tolerated on your left leg with your short leg boot walker. When you are sitting, you may remove the boot to work on moving your left ankle so that he would obtain more motion to your left ankle. 2) I will recheck you in 1 month and obtain new x-rays. Your diabetes may affect your healing of your fracture, more slowly to heal. Keep your left foot elevated is much as possible to reduce swelling. Your swelling will persist for 3 to 4 months I shared with PT today for when they do get to see her.
[2022-02-12] MEDS ORDERED: MAGNESIUM SULFATE 2 GRAM 2 GM/50 ML BAG IV ONE (13:19)
--- NOTE | 2022-02-12 15:24 | PHARMACY PROGRESS NOTE ---
- Therapy Status Vancomycin regimen day #: 4 Therapy status: Trough supratherapeutic Trough goal: 15-20 - MCKINLEY Risk Risk level for Acute Kidney Injury: High Acute Kidney Injury risk factors: Wt >100kg or BMI >40, IV contrast within 72 hrs, Goal trough >15, Chronic baseline hypertension, Diabetes, Admission to ICU - Monitoring and Recommendation Clinical response to treatment: I&O Previous 24 hours 02/10/22 02/11/22 02/12/22 23:59 23:59 23:59 Intake Total 3691.318 3734.664 2656.756 Output Total 2330 2966 381 Balance 1361.318 627.981 6400.756 Lab Results 02/12/22 02/11/22 02/10/22 02:55 04:15 04:20 BUN 22 H 18 21 H Creatinine 1.4 H 1.0 0.8 Estimated GFR (MDRD) 38 L 56 L 73 L 02/09/22 02/08/22 05:28 15:05 BUN 31 H 30 H Creatinine 1.0 1.2 H Estimated GFR (MDRD) 56 L 46 L Vancomycin Monitoring 02/12/22 02/11/22 14:00 15:10 Vancomycin Trough 32.0 H* 15.3 Cultures 02/09/22 12:00 Bronchial Washings Respiratory Culture - Final Methicillin Resist S. Aureus 02/08/22 19:14 Blood - Central Line Blood Culture - Preliminary NO GROWTH AFTER 2 DAYS 02/08/22 18:27 Blood - Central Line Blood Culture - Preliminary NO GROWTH AFTER 2 DAYS Monitoring plan: Daily serum creatinine, Draw trough early Areas for additional monitoring: IV to PO when appropriate, Therapy de- escalation based on culture results, Acute Kidney Injury Pharmacy recommendation: Hold dose (Pt had a decrease in kidney function from yesterday (Scr 1.0 to 1.4). Giving this change, I ordered a level today, which came back elevated at 32. Trough was 15.3 yesterday. Today's dose is being held. I anticipate resuming tomorrow and changing frequency from 24 to 48 hours.)
[2022-02-12] MEDS: ALBUTEROL NEB 2.5 MG/3 ML INH PRN (20:30)
[2022-02-12] MEDS: INSULIN GLARGINE-YFGN 300 UNIT/3 ML PEN SUBQ SCH (20:47)
[2022-02-13] MEDS: INSULIN REGULAR HUMAN 300 UNIT/3 ML VIAL SUBQ SCH ×4 (00:34→17:52)
[2022-02-13] MEDS: metroNIDAZOLE 500 MG/100 ML 500 MG/100 ML BAG IV SCH ×3 (02:37→18:44)
[2022-02-13] MEDS: PROPOFOL 1000 MG/100 ML 1,000 MG/100 ML BOTTLE IV SCH ×5 (03:36→22:45)
[2022-02-13 06:30] LABS: MAGNESIUM 2.2 mg/dL (1.7-2.8); POTASSIUM 4.3 mmol/L (3.5-5.0); VBG PH 7.287 (7.31-7.41)
[2022-02-13 06:31] LABS: CALCIUM, IONIZED 1.13 mmol/L (1.15-1.33)
[2022-02-13] MEDS: CEFEPIME 1 GM in SODIUM CHLORIDE 0.9% MINIBAG 100 ML IV SCH ×2 (06:42→13:31)
[2022-02-13] MEDS: PANTOPRAZOLE 40 MG VIAL IVP SCH (06:43)
[2022-02-13] MEDS: ALBUTEROL NEB 2.5 MG/3 ML INH PRN (07:49)
[2022-02-13 07:52] LABS: ABG HCO3 21.3 mmol/L (22.0-26.0); ABG PCO2 37 mmHg (34-45); ABG PH 7.38 (7.35-7.45); ABG PO2 79 mmHg (80-100)
[2022-02-13 07:53] LABS: ABG BASE EXCESS -3.4 mmol/L (-2.0-3.0); ABG MODE OF VENTILATION ASSIST/CONTROL; ABG OXYGEN SATURATION 96 % (94-98); ABG RESPIRATORY RATE 12 b/min; ABG TCO2 22.4 MMOL/L (21.0-29.0); ALLEN TEST POSITIVE
[2022-02-13] MEDS: amLODIPine 5 MG TABLET GT SCH (09:18)
[2022-02-13] MEDS: ethyl alcohoL 62% SWAB AMPULE NAS SCH ×2 (09:19→21:43)
[2022-02-13] MEDS: FUROSEMIDE 40 MG/4 ML VIAL IVP SCH (09:19)
[2022-02-13] MEDS: CHLORHEXIDINE GLUCONATE 15 ML UDC PO SCH ×2 (09:19→21:43)
[2022-02-13] MEDS: ENOXAPARIN 40 MG/0.4 ML SYRINGE SUBQ SCH (09:19)
[2022-02-13] MEDS: SODIUM CHLORIDE FLUSH 0.9% 10 ML SYRINGE IVP SCH ×2 (09:20→17:30)
[2022-02-13 11:31] LABS: BASOPHILS % (AUTO) 0.3 %; EOSINOPHILS % (AUTO) 2.8 %; HCT - HEMATOCRIT 27.2 % (37.0-47.0); HGB - HEMOGLOBIN 8.7 g/dL (12.0-16.0); MEAN CORPUSCULAR HEMOGLOBIN 28.8 pg (27.0-31.0); MEAN CORPUSCULAR VOLUME 90.1 fL (81.0-99.0); MEAN PLATELET VOLUME 9.6 fL (7.9-10.8); NEUTROPHILS % (AUTO) 78.4 %; PLT - PLATELET COUNT 311 10^3/uL (130-450); RED BLOOD COUNT 3.02 10^6/uL (4.20-5.40); WHITE BLOOD COUNT 15.9 x10^3/uL (4.8-10.8)
[2022-02-13 11:41] LABS: CALCIUM 8.1 mg/dL (8.5-10.3); CREATININE 2.8 mg/dL (0.4-1.0); POTASSIUM 4.5 mmol/L (3.5-5.0)
[2022-02-13] MEDS ORDERED: NEUTRA-PHOS 250 MG TABLET PO SCH (12:00)
[2022-02-13 12:05] LABS: ABNORMAL LYMPHS % (MANUAL) 0 %
[2022-02-13] MEDS: polyethylene glycoL 3350 17 GM PACKET PO SCH (12:08)
[2022-02-13] MEDS: NYSTATIN POWDER 15 GM TOP SCH ×2 (12:08→21:44)
[2022-02-13 12:14] LABS: BAND NEUTROPHILS % (MANUAL) 1 %; EOSINOPHILS # (MANUAL) 0.2 10^3/uL (0-0.7); LYMPHOCYTES % (MANUAL) 6 %; MONOCYTES # (MANUAL) 2.1 10^3/uL (0.0-1.0); NEUTROPHILS # (MANUAL) 12.7 10^3/uL (1.5-6.6); PLATELET ESTIMATE, MANUAL NORMAL (130-450,000) (NORMAL); PLATELET MORPHOLOGY NORMAL APPEARANCE (NORMAL); RBC MORPHOLOGY (MULTIPLE) NORMAL APPEARANCE (NORMAL)
[2022-02-13 12:15] LABS: DIFFERENTIAL COMMENT MANUAL DIFFERENTIAL
[2022-02-13] MEDS ORDERED: FUROSEMIDE 100 MG/10 ML VIAL IVP ONE (13:51)
[2022-02-13] MEDS ORDERED: VANCOMYCIN INJ 1.75 GM in SODIUM CHLORIDE 0.9% 500 ML IV SCH (14:00)
[2022-02-13] MEDS: MORPHINE 2 MG/ML CARPUJECT IVP PRN ×2 (14:02→17:31)
--- NOTE | 2022-02-13 14:51 | PROVIDER PROGRESS NOTE ---
Subjective - Prog Note Date Prog Note Date: 02/13/22 Prog Note Time: 14:50 - Subjective Subjective: Between yesterday and today she has gone into complete renal failure. Blood gases show stability. PO2 is now 79 on 100% FiO2. I went from a PEEP of 6-10. No other events. Current Medications - Current Medications Current Medications: Active Medications Acetaminophen (Acetaminophen 650 Mg Supp) 650 mg MD Q6HR PRN PRN Reason: Pain or Fever > 38C (100.4F) Last Admin: 02/12/22 00:31 Dose: 650 mg Albuterol (Albuterol Neb 2.5 Mg/3 Ml) 2.5 mg INH Q4HR PRN PRN Reason: Wheezing Last Admin: 02/13/22 07:49 Dose: 2.5 mg Alcohol (Ethyl Alcohol 62% Swab Ampule) 1 amp [place]LEY BID [facility] Last Admin: 02/13/22 09:19 Dose: 1 amp Amlodipine Besylate (Amlodipine 5 Mg Tablet) 10 mg GT DAILY [facility] Last Admin: 02/13/22 09:18 Dose: 10 mg Calcium Carbonate/Glycine (Calcium Carbonate Chew 500 Mg Tablet) 500 mg NG TIDWM [facility] Chlorhexidine Gluconate (Chlorhexidine Gluconate 15 Ml Udc) 15 ml PO BID [facility] Last Admin: 02/13/22 09:19 Dose: 15 ml Enoxaparin Sodium (Enoxaparin 40 Mg/0.4 Ml Syringe) 40 mg SUBQ DAILY [facility] Last Admin: 02/13/22 09:19 Dose: 40 mg Furosemide (Furosemide 40 Mg/4 Ml Vial) 80 mg IVP DAILY [facility] Last Admin: 02/13/22 09:19 Dose: 80 mg Propofol (Diprivan) 1,000 mg in 100 mls @ 6.18 mls/hr IV .[id number] SERGIO; Protocol Last Admin: 02/13/22 12:12 Dose: 30 mcg/kg/min, 18.54 mls/hr Sodium Chloride (Normal Saline 0.9%) 500 mls @ 20 mls/hr IV Q24H PRN PRN Reason: TKO RATE Last Infusion: 02/13/22 07:00 Dose: Infused Metronidazole (Flagyl 500 Mg/100 Ml) 500 mg in 100 mls @ 100 mls/hr IV Q8H [facility] Last Infusion: 02/13/22 13:26 Dose: Infused Linezolid (Zyvox 600 Mg/300 Ml) 600 mg in 300 mls @ 300 mls/hr IV Q12H [facility] Cefepime HCl 1 gm/ Sodium (Chloride) 100 mls @ 200 mls/hr IV Q12H [facility] Ibuprofen (Ibuprofen 400 Mg Tablet) 400 mg PO Q6HR PRN PRN Reason: FEVER > 100.5 F Last Admin: 02/11/22 21:42 Dose: 400 mg Insulin Glargine-yfgn (Insulin Glargine-Yfgn 300 Unit/3 Ml Pen) 20 unit SUBQ QPM [facility] Last Admin: 02/12/22 20:47 Dose: 20 unit Insulin Human Regular (Insulin Regular Human 300 Unit/3 Ml Vial) 3 - 11 unit SUBQ Q6HR [facility]; Protocol Last Admin: 02/13/22 12:10 Dose: 3 unit Morphine Sulfate (Morphine 2 Mg/Ml Carpuject) 2 mg IVP Q2HR PRN PRN Reason: Pain 8 to 10 Last Admin: 02/13/22 14:02 Dose: 2 mg Nystatin (Nystatin Powder 15 Gm) 1 applic TOP BID [facility] Last Admin: 02/13/22 12:08 Dose: 1 applic Ondansetron HCl (Ondansetron Odt 4 Mg Tablet) 4 mg TL Q6HR PRN PRN Reason: Nausea / Vomiting Ondansetron HCl (Ondansetron 4 Mg/2 Ml Vial) 4 mg IVP Q6HR PRN PRN Reason: Nausea / Vomiting Pantoprazole Sodium (Pantoprazole 40 Mg Vial) 40 mg IVP QDAC [facility] Last Admin: 02/13/22 06:43 Dose: 40 mg Polyethylene Glycol (Polyethylene Glycol 3350 17 Gm Packet) 17 gm PO DAILY [facility] Last Admin: 02/13/22 12:08 Dose: Not Given Sodium Chloride (Sodium Chloride Flush 0.9% 10 Ml Syringe) 10 ml IVP 0100,0900,1700 [facility] Last Admin: 02/13/22 09:20 Dose: 10 ml Sodium Chloride (Sodium Chloride Flush 0.9% 10 Ml Syringe) 10 ml IVP PRN PRN PRN Reason: NEEDED PER PROVIDER ORDERS Last Admin: 02/12/22 16:32 Dose: 10 ml Sodium Chloride (Sodium Chloride Flush 0.9% 10 Ml Syringe) 20 ml IVP PRN PRN PRN Reason: After Blood Draw Last Admin: 02/12/22 17:22 Dose: 30 ml Amlodipine Besylate [Norvasc] 10 mg PO DAILY 02/08/22 Gabapentin [Neurontin] 600 mg PO BID 02/08/22 Insulin Glargine [Lantus Solostar] 36 units SUBQ QPM 02/08/22 Rosuvastatin Calcium [Crestor] 10 mg PO QPM 02/08/22 Trazodone HCl 400 mg PO QPM 02/08/22 glipiZIDE ER [Glucotrol Xl] 2.5 mg PO 0800 02/08/22 Objective - Vital Signs/Intake & Output Reviewed Vital Signs: Yes Vital Signs: Vital Signs Temp Pulse Pulse Resp BP Pulse Ox 02/13/22 14:00 78 21 122/63 93 02/13/22 13:51 78 02/13/22 13:00 37.4 C 79 20 121/63 95 02/13/22 12:14 82 02/13/22 12:00 337.8 C H 81 22 116/61 94 02/13/22 11:00 76 24 108/57 L 99 Intake & Output: Intake & Output 02/10/22 02/11/22 02/12/22 02/13/22 23:59 23:59 23:59 23:59 Intake Total 3691.318 3734.664 3999.819 1358.289 Output Total 2330 2966 523 196 Balance 1361.318 490.019 2838.819 1162.289 - Objective General Appearance: positive: Other (intubated) Eyes Bilateral: positive: PERRL ENT: positive: No signs of dehydration Neck: negative: Stiff neck Respiratory: positive: No respiratory distress, Rales, Rhonchi Cardiovascular: positive: Regular rate & rhythm Abdomen: positive: Nml bowel sounds, No distention Skin: positive: Warm, Dry Extremities: positive: Pedal edema Neurologic/Psychiatric: positive: Other (She still occasionally opens her eyes, will withdraw her feet to my doing Babinski's of her feet, but no spontaneous movement or eyelid opening on propofol.) - Lab Results Fish Bones: 02/13/22 11:20 02/13/22 11:20 Other Labs: Lab Results x24hrs 02/13/22 02/13/22 02/13/22 Range/Units 11:39 11:20 11:20 WBC 15.9 H (4.8-10.8) x10^3/uL RBC 3.02 L (4.20-5.40) 10^6/uL Hgb 8.7 L (12.0-16.0) g/dL Hct 27.2 L (37.0-47.0) % MCV 90.1 (81.0-99.0) fL MCH 28.8 (27.0-31.0) pg MCHC 32.0 (32.0-36.0) g/dL RDW 13.0 (12.0-15.0) % Plt Count 311 (130-450) 10^3/uL MPV 9.6 (7.9-10.8) fL Neut # (Auto) Not Reportable Lymph # (Auto) Not Reportable Coke # (Auto) Not Reportable Eos # (Auto) Not Reportable Baso # (Auto) Not Reportable Absolute Nucleated RBC Not Reportable Total Counted 100 Band Neuts % (Manual) 1 (0 - 10) % Abnorm Lymph % (Manual) 0 % Nucleated RBC % Not Reportable Neutrophils # (Manual) 12.7 H (1.5-6.6) 10^3/uL Lymphocytes # (Manual) 1.0 L (1.5-3.5) 10^3/uL Monocytes # (Manual) 2.1 H (0.0-1.0) 10^3/uL Eosinophils # (Manual) 0.2 (0-0.7) 10^3/uL Basophils # (Manual) 0.0 (0-0.1) 10^3/uL Differential Comment MANUAL DIFFERENTIAL Platelet Estimate NORMAL (130-450,000) (NORMAL) Platelet Morphology NORMAL APPEARANCE (NORMAL) RBC Morph Micro Appear NORMAL APPEARANCE (NORMAL) Bld Gas Analysis Time Sample Site ABG pH (7.35-7.45) ABG pCO2 (34-45) mmHg ABG pO2 (80-100) mmHg ABG HCO3 (22.0-26.0) mmol/L ABG Total CO2 (21.0-29.0) MMOL/L ABG O2 Saturation (94-98) % ABG Base Excess (-2.0-3.0) mmol/L Juan Test VBG pH (7.31-7.41) Ionized Calcium (1.15-1.33) mmol/L Respiration Rate b/min O2 Delivery Device Vent Mode FiO2 Tidal Volume mL PEEP cmH2O Sodium 135 (135-145) mmol/L Potassium 4.5 (3.5-5.0) mmol/L Chloride 103 (101-111) mmol/L Carbon Dioxide 20 L (21-32) mmol/L Anion Gap 12.0 (6-13) BUN 40 H (6-20) mg/dL Creatinine 2.8 H (0.4-1.0) mg/dL Estimated GFR (MDRD) 17 L (>89) Glucose 197 H (70-100) mg/dL POC Whole Bld Glucose 174 H (70 - 100) mg/dL Calcium 8.1 L (8.5-10.3) mg/dL Phosphorus (2.5-4.6) mg/dL Magnesium (1.7-2.8) mg/dL B-Natriuretic Peptide (5-100) pg/mL 02/13/22 02/13/22 02/13/22 Range/Units 07:30 05:18 05:18 WBC (4.8-10.8) x10^3/uL RBC (4.20-5.40) 10^6/uL Hgb (12.0-16.0) g/dL Hct (37.0-47.0) % MCV (81.0-99.0) fL MCH (27.0-31.0) pg MCHC (32.0-36.0) g/dL RDW (12.0-15.0) % Plt Count (130-450) 10^3/uL MPV (7.9-10.8) fL Neut # (Auto) Lymph # (Auto) Coke # (Auto) Eos # (Auto) Baso # (Auto) Absolute Nucleated RBC Total Counted Band Neuts % (Manual) (0 - 10) % Abnorm Lymph % (Manual) % Nucleated RBC % Neutrophils # (Manual) (1.5-6.6) 10^3/uL Lymphocytes # (Manual) (1.5-3.5) 10^3/uL Monocytes # (Manual) (0.0-1.0) 10^3/uL Eosinophils # (Manual) (0-0.7) 10^3/uL Basophils # (Manual) (0-0.1) 10^3/uL Differential Comment Platelet Estimate (NORMAL) Platelet Morphology (NORMAL) RBC Morph Micro Appear (NORMAL) Bld Gas Analysis Time 0730 Sample Site RIGHT RADIAL ABG pH 7.38 (7.35-7.45) ABG pCO2 37 (34-45) mmHg ABG pO2 79 L (80-100) mmHg ABG HCO3 21.3 L (22.0-26.0) mmol/L ABG Total CO2 22.4 (21.0-29.0) MMOL/L ABG O2 Saturation 96 (94-98) % ABG Base Excess -3.4 L (-2.0-3.0) mmol/L Juan Test POSITIVE VBG pH 7.287 L (7.31-7.41) Ionized Calcium 1.13 L (1.15-1.33) mmol/L Respiration Rate 12 b/min O2 Delivery Device VENTILATOR Vent Mode ASSIST/CONTROL FiO2 100.00 Tidal Volume 450 mL PEEP 10 cmH2O Sodium (135-145) mmol/L Potassium 4.3 (3.5-5.0) mmol/L Chloride (101-111) mmol/L Carbon Dioxide (21-32) mmol/L Anion Gap (6-13) BUN (6-20) mg/dL Creatinine (0.4-1.0) mg/dL Estimated GFR (MDRD) (>89) Glucose (70-100) mg/dL POC Whole Bld Glucose (70 - 100) mg/dL Calcium (8.5-10.3) mg/dL Phosphorus 6.0 H (2.5-4.6) mg/dL Magnesium 2.2 (1.7-2.8) mg/dL B-Natriuretic Peptide (5-100) pg/mL 02/13/22 02/13/22 02/13/22 Range/Units 05:18 05:11 00:08 WBC (4.8-10.8) x10^3/uL RBC (4.20-5.40) 10^6/uL Hgb (12.0-16.0) g/dL Hct (37.0-47.0) % MCV (81.0-99.0) fL MCH (27.0-31.0) pg MCHC (32.0-36.0) g/dL RDW (12.0-15.0) % Plt Count (130-450) 10^3/uL MPV (7.9-10.8) fL Neut # (Auto) Lymph # (Auto) Coke # (Auto) Eos # (Auto) Baso # (Auto) Absolute Nucleated RBC Total Counted Band Neuts % (Manual) (0 - 10) % Abnorm Lymph % (Manual) % Nucleated RBC % Neutrophils # (Manual) (1.5-6.6) 10^3/uL Lymphocytes # (Manual) (1.5-3.5) 10^3/uL Monocytes # (Manual) (0.0-1.0) 10^3/uL Eosinophils # (Manual) (0-0.7) 10^3/uL Basophils # (Manual) (0-0.1) 10^3/uL Differential Comment Platelet Estimate (NORMAL) Platelet Morphology (NORMAL) RBC Morph Micro Appear (NORMAL) Bld Gas Analysis Time Sample Site ABG pH (7.35-7.45) ABG pCO2 (34-45) mmHg ABG pO2 (80-100) mmHg ABG HCO3 (22.0-26.0) mmol/L ABG Total CO2 (21.0-29.0) MMOL/L ABG O2 Saturation (94-98) % ABG Base Excess (-2.0-3.0) mmol/L Juan Test VBG pH (7.31-7.41) Ionized Calcium (1.15-1.33) mmol/L Respiration Rate b/min O2 Delivery Device Vent Mode FiO2 Tidal Volume mL PEEP cmH2O Sodium (135-145) mmol/L Potassium (3.5-5.0) mmol/L Chloride (101-111) mmol/L Carbon Dioxide (21-32) mmol/L Anion Gap (6-13) BUN (6-20) mg/dL Creatinine (0.4-1.0) mg/dL Estimated GFR (MDRD) (>89) Glucose (70-100) mg/dL POC Whole Bld Glucose 166 H 195 H (70 - 100) mg/dL Calcium (8.5-10.3) mg/dL Phosphorus (2.5-4.6) mg/dL Magnesium (1.7-2.8) mg/dL B-Natriuretic Peptide 153 H (5-100) pg/mL 11/02/12/22 02/12/22 Range/Units 20:30 17:36 17:15 WBC (4.8-10.8) x10^3/uL RBC (4.20-5.40) 10^6/uL Hgb (12.0-16.0) g/dL Hct (37.0-47.0) % MCV (81.0-99.0) fL MCH (27.0-31.0) pg MCHC (32.0-36.0) g/dL RDW (12.0-15.0) % Plt Count (130-450) 10^3/uL MPV (7.9-10.8) fL Neut # (Auto) Lymph # (Auto) Coke # (Auto) Eos # (Auto) Baso # (Auto) Absolute Nucleated RBC Total Counted Band Neuts % (Manual) (0 - 10) % Abnorm Lymph % (Manual) % Nucleated RBC % Neutrophils # (Manual) (1.5-6.6) 10^3/uL Lymphocytes # (Manual) (1.5-3.5) 10^3/uL Monocytes # (Manual) (0.0-1.0) 10^3/uL Eosinophils # (Manual) (0-0.7) 10^3/uL Basophils # (Manual) (0-0.1) 10^3/uL Differential Comment Platelet Estimate (NORMAL) Platelet Morphology (NORMAL) RBC Morph Micro Appear (NORMAL) Bld Gas Analysis Time Sample Site ABG pH (7.35-7.45) ABG pCO2 (34-45) mmHg ABG pO2 (80-100) mmHg ABG HCO3 (22.0-26.0) mmol/L ABG Total CO2 (21.0-29.0) MMOL/L ABG O2 Saturation (94-98) % ABG Base Excess (-2.0-3.0) mmol/L Juan Test VBG pH (7.31-7.41) Ionized Calcium (1.15-1.33) mmol/L Respiration Rate b/min O2 Delivery Device Vent Mode FiO2 Tidal Volume mL PEEP cmH2O Sodium (135-145) mmol/L Potassium (3.5-5.0) mmol/L Chloride (101-111) mmol/L Carbon Dioxide (21-32) mmol/L Anion Gap (6-13) BUN (6-20) mg/dL Creatinine (0.4-1.0) mg/dL Estimated GFR (MDRD) (>89) Glucose (70-100) mg/dL POC Whole Bld Glucose 187 H 184 H (70 - 100) mg/dL Calcium (8.5-10.3) mg/dL Phosphorus (2.5-4.6) mg/dL Magnesium 2.2 (1.7-2.8) mg/dL B-Natriuretic Peptide (5-100) pg/mL Sepsis Event Note (H) - Evaluation Current Stage of Sepsis: Ruled out Possible source of Sepsis: positive: Pulmonary - Sepsis Criteria Sepsis Criteria: Respiratory: Increasing oxygen requirements, Metabolic: lactate > 2 mmol/L Assessment/Plan - Problem List (1) Nephrotoxic acute renal failure Impression: Her urine output started going down yesterday. And by today, it is sharply diminished. She was 523 urine output yesterday and so far as of 2:51 PM she is 196 cc out. I attribute this to direct nephrotoxic injury from her vancomycin. Creatinine has climbed. She was 1.2 on admission, was able to get down to 0.8 when she was hydrated. She is now 2.8. There have been no callbacks from [facility] about a possible ICU bed. Plan: Stop IV fluids. The last time I spoke to the ICU attending at [facility] he recommended up to 200 mg of Lasix. I am going to give her 100 mg of Lasix and see if there is any response. Add PhosLo if we can, calcium carbonate via NG (2) MRSA (methicillin resistant staphylococcus aureus) pneumonia Impression: Unclear what the event was that made this woman have problem #3. She does have diabetes and she does live in a halfway but she has no history of IV drug abuse.Our suspicion is that she may have aspirated but we may never know Nevertheless her sputum cultures are growing out MRSA. She was initially on Rocephin and azithromycin. She was then switched to cefepime. Day #5. And Flagyl. Day #4. Once her MRSA cultures were resulted February 10, vancomycin was added. She received 2 doses. Trough > 30 today. Plan: Stop vancomycin and change to linezolid White cell count is slowly responding. She was 20.5 in admission and is 15.9 today. Qualifiers: Laterality: bilateral (2) ARDS (adult respiratory distress syndrome) Impression: She presented as acute respiratory failure in the field when picked up by EMS. She was immediately intubated and has remained intubated since February 08. She has been on an FiO2 of 100% since that time. PEEP started at 6, and is currently at 8. in spite of that her PO2 is slowly drifting down. She remained stable for the first 2 days and started drifting down on her 02 Sats below 90% yesterday. No history of smoking, asthma, pneumonia or chronic lung disease that I can find from her limited history available. I started wondering about what caused this event. Could she have aspirated, could she have inhaled a foreign body. General surgery on-call was able to see her February 09 and do a type of bronchoscopy where he got back some red granular secreation that were not blood . those were submitted for culture and her sputum grew out MRSA. Today on assist-control, rate of 12, FiO2 100%, tidal volume 450, PEEP of 10 her pH is 7.38, PCO2 37, PO2 79, base excess -3.4. 02/12: I was able to speak to Dr. Campbell, ICU on-call at [facility]. Her numbers [phone]. I had spoken to the transfer center and they have no beds. After discussing the case with Dr. Campbell, she recommends: +Slowly increasing PEEP over the next hour from 8, to 10, to 12. Go as high as 16 and slowly reduce her FiO2 to at least 70 or 80%. Her pressures may drop with this and support her with dopamine. + Make sure she is on DVT prophylaxis, she is +Make sure she is getting adequate nutrition, she is with tube feedings started 02/11 + Antibiotic coverage is adequate with cefepime, vancomycin and Flagyl but now to go off Vanc and go to Linezolid + Continue to see if we can make arrangements for transfer We did go up on PEEP 02/12 and 02 is back up to above 90% sat. If I cannot get her transferred, I will need to think about long-term vent support with tracheostomy. I did call [facility] and no beds. I have also called [facility] again. Qualifiers: Pneumonia type: due to unspecified organism Laterality: bilateral Lung location: unspecified part of lung Qualified Code(s): J18.9 - Pneumonia, uns pecified organism (3) Type II diabetes mellitus, uncontrolled Conclusion/Plan: On Lantus 36 units, Glucotrol XL 2.5 mg at her care facility. Intolerance to metformin noted. I started Lantus 20 units and 3 units of short acting q6h since she was n.p.o. plus Sliding scale insulin. I stopped the 3 units q6h when glucose was too tightly controlled and I was worried about hypoglycemia Tube feeding started February 11. Lantus increased to 24 units 02/12 because glucose not controlled. Glucose 138, 174, 198, 184, 187 yesterday. Today she is 195, 147, 166, 174 Plan: No change in lantus of SS Qualifiers: Glycemic state: with hyperglycemia Qualified Code(s): E11.65 - Type 2 diabetes mellitus with hyperglycemia (4) Hypertension Conclusion/Plan: Medications at home are Norvasc but no diuretic, etc. Not on an NAA inhibitor Due to severe allergy Will give her Norvasc via NG Qualifiers: Hypertension type: primary hypertension Qualified Code(s): I10 - Essential (primary) hypertension (5) Nondisplaced fracture of lateral malleolus of left fibula, subsequent encounter for closed fracture with malunion Conclusion/Plan: seen by ortho and their instructions were: (1) I would continue your short leg boot walker until I recheck you in a month you can bear weight as tolerated on your left leg with your short leg boot walker. When you are sitting, you may remove the boot to work on moving your left ankle so that he would obtain more motion to your left ankle. 2) I will recheck you in 1 month and obtain new x-rays. Your diabetes may affect your healing of your fracture, more slowly to heal. Keep your left foot elevated is much as possible to reduce swelling. Your swelling will persist for 3 to 4 months I shared with PT today for when they do get to see her.
[2022-02-13] MEDS: LINEZOLID 600 MG/300 ML 600 MG/300 ML BAG IV SCH (17:30)
[2022-02-13] MEDS: CALCIUM CARBONATE CHEW 500 MG TABLET NG SCH (17:30)
[2022-02-13] MEDS: INSULIN GLARGINE-YFGN 300 UNIT/3 ML PEN SUBQ SCH (21:44)
[2022-02-14] MEDS: INSULIN REGULAR HUMAN 300 UNIT/3 ML VIAL SUBQ SCH ×4 (00:37→18:18)
[2022-02-14] MEDS: ACETAMINOPHEN 650 MG SUPP PR PRN (00:37)
[2022-02-14] MEDS: SODIUM CHLORIDE FLUSH 0.9% 10 ML SYRINGE IVP SCH ×3 (00:38→16:20)
[2022-02-14] MEDS: CEFEPIME 1 GM in SODIUM CHLORIDE 0.9% MINIBAG 100 ML IV SCH ×2 (01:33→13:39)
[2022-02-14] MEDS: metroNIDAZOLE 500 MG/100 ML 500 MG/100 ML BAG IV SCH ×3 (02:56→18:19)
[2022-02-14] MEDS: PROPOFOL 1000 MG/100 ML 1,000 MG/100 ML BOTTLE IV SCH ×6 (03:40→23:53)
[2022-02-14] MEDS: LINEZOLID 600 MG/300 ML 600 MG/300 ML BAG IV SCH ×2 (05:25→16:20)
[2022-02-14] MEDS: SODIUM CHLORIDE FLUSH 0.9% 10 ML SYRINGE IVP PRN ×2 (05:33)
[2022-02-14 05:59] LABS: BASOPHILS % (AUTO) 0.4 %; EOSINOPHILS % (AUTO) 4.7 %; HCT - HEMATOCRIT 27.6 % (37.0-47.0); HGB - HEMOGLOBIN 8.8 g/dL (12.0-16.0); LYMPHOCYTES % (AUTO) 8.1 %; MEAN CORPUSCULAR HEMOGLOBIN 28.9 pg (27.0-31.0); MEAN CORPUSCULAR HGB CONC 31.9 g/dL (32.0-36.0); MEAN CORPUSCULAR VOLUME 90.5 fL (81.0-99.0); MEAN PLATELET VOLUME 9.5 fL (7.9-10.8); MONOCYTES % (AUTO) 12.2 %; NEUTROPHILS % (AUTO) 70.6 %; PLT - PLATELET COUNT 389 10^3/uL (130-450); RED BLOOD COUNT 3.05 10^6/uL (4.20-5.40); RED CELL DISTRIBUTION WIDTH 13.2 % (12.0-15.0); WHITE BLOOD COUNT 15.7 x10^3/uL (4.8-10.8)
[2022-02-14 06:02] LABS: VBG PH 7.332 (7.31-7.41)
[2022-02-14 06:03] LABS: CALCIUM, IONIZED 1.09 mmol/L (1.15-1.33)
[2022-02-14 06:05] LABS: ABNORMAL LYMPHS % (MANUAL) 0 %
[2022-02-14 06:12] LABS: MAGNESIUM 2.2 mg/dL (1.7-2.8); PHOSPHORUS 6.8 mg/dL (2.5-4.6)
[2022-02-14 06:14] LABS: ALBUMIN/GLOBULIN RATIO 0.5 (1.0-2.2); BILIRUBIN,TOTAL 1.3 mg/dL (0.2-1.0); CALCIUM 8.2 mg/dL (8.5-10.3); CREATININE 3.6 mg/dL (0.4-1.0); POTASSIUM 4.7 mmol/L (3.5-5.0); TOTAL PROTEIN 6.2 g/dL (6.7-8.2)
[2022-02-14] MEDS: PANTOPRAZOLE 40 MG VIAL IVP SCH (06:29)
[2022-02-14 06:34] LABS: ABG HCO3 18.5 mmol/L (22.0-26.0); ABG PCO2 33 mmHg (34-45); ABG PH 7.36 (7.35-7.45); ABG PO2 75 mmHg (80-100)
[2022-02-14 06:35] LABS: ABG BASE EXCESS -6.1 mmol/L (-2.0-3.0); ABG OXYGEN SATURATION 95 % (94-98); ABG TCO2 19.5 MMOL/L (21.0-29.0); ALLEN TEST POSITIVE
[2022-02-14 06:36] LABS: ABG MODE OF VENTILATION AC/VC; ABG RESPIRATORY RATE 12 b/min
[2022-02-14 07:06] LABS: BAND NEUTROPHILS % (MANUAL) 1 %; BASOPHILS # (MANUAL) 0.3 10^3/uL (0-0.1); BASOPHILS % (MANUAL) 2 %; EOSINOPHILS # (MANUAL) 0.6 10^3/uL (0-0.7); LYMPHOCYTES % (MANUAL) 13 %; METAMYELOCYTES % (MANUAL) 1 %; MONOCYTES # (MANUAL) 1.6 10^3/uL (0.0-1.0); MYELOCYTES % (MANUAL) 1 %; NEUTROPHILS # (MANUAL) 10.8 10^3/uL (1.5-6.6)
[2022-02-14 07:07] LABS: DIFFERENTIAL COMMENT MANUAL DIFFERENTIAL; PLATELET ESTIMATE, MANUAL NORMAL (130-450,000) (NORMAL); PLATELET MORPHOLOGY NORMAL APPEARANCE (NORMAL); RBC MORPHOLOGY (MULTIPLE) NORMAL APPEARANCE (NORMAL); WBC MORPHOLOGY (MULTIPLE) NORMAL APPEARANCE (NORMAL)
--- NOTE | 2022-02-14 08:37 | PROVIDER PROGRESS NOTE ---
Subjective - Subjective Subjective: RN rports that with lower propofol drip, pt can hear and opens her eyes and turns head to follow the sound, but pt does not follow commands. Objective - Vital Signs/Intake & Output Reviewed Vital Signs: Yes Vital Signs: Vital Signs Temp Pulse Pulse Resp BP Pulse Ox 02/14/22 08:00 37.5 C 73 23 117/61 93 02/14/22 07:00 37.9 C 77 20 126/65 94 02/14/22 06:00 77 75 22 118/63 95 02/14/22 05:25 77 02/14/22 05:00 76 19 101/57 L 93 Intake & Output: Intake & Output 02/11/22 02/12/22 02/13/22 02/14/22 23:59 23:59 23:59 23:59 Intake Total 3734.664 3999.819 2598.886 2036.155 Output Total 2966 523 321 93 Balance 396.717 8012.819 2277.886 1943.155 - Objective General Appearance: positive: No acute distress, Other (Intubated on vent, has ET tube and OG tube and is sedated. Obese WF.) Eyes Bilateral: positive: Normal inspection ENT: positive: Other (ET tube and OG tubes in place) Neck: positive: Other (Cannot evaluate for JVP due to morbid obesity) Respiratory: positive: Rales (Fine right-sided rales at base) Cardiovascular: positive: No murmur, Other (Distant heart sounds due to morbid obesity) Abdomen: positive: Non-tender, Other (Obese with a pannus) Skin: positive: Warm, Dry Extremities: positive: Other (2+ edema of legs and hands) Neurologic/Psychiatric: positive: Other (sedated but starting to awaken to sounds, when Propofol drip decreased) - Lab Results Fish Bones: 02/14/22 05:35 02/14/22 05:35 Other Labs: Lab Results x24hrs 02/14/22 02/14/22 02/14/22 Range/Units 06:25 05:35 05:35 WBC 15.7 H (4.8-10.8) x10^3/uL RBC 3.05 L (4.20-5.40) 10^6/uL Hgb 8.8 L (12.0-16.0) g/dL Hct 27.6 L (37.0-47.0) % MCV 90.5 (81.0-99.0) fL MCH 28.9 (27.0-31.0) pg MCHC 31.9 L (32.0-36.0) g/dL RDW 13.2 (12.0-15.0) % Plt Count 389 (130-450) 10^3/uL MPV 9.5 (7.9-10.8) fL Neut # (Auto) Not Reportable Lymph # (Auto) Not Reportable Winn # (Auto) Not Reportable Eos # (Auto) Not Reportable Baso # (Auto) Not Reportable Absolute Nucleated RBC Not Reportable Total Counted 100 Band Neuts % (Manual) 1 (0 - 10) % Abnorm Lymph % (Manual) 0 % Metamyelocytes % 1 H ( - 0) % Myelocytes % 1 H ( - 0) % Nucleated RBC % Not Reportable Neutrophils # (Manual) 10.8 H (1.5-6.6) 10^3/uL Lymphocytes # (Manual) 2.0 (1.5-3.5) 10^3/uL Monocytes # (Manual) 1.6 H (0.0-1.0) 10^3/uL Eosinophils # (Manual) 0.6 (0-0.7) 10^3/uL Basophils # (Manual) 0.3 H (0-0.1) 10^3/uL Differential Comment MANUAL DIFFERENTIAL WBC Morphology NORMAL APPEARANCE (NORMAL) Platelet Estimate NORMAL (130-450,000) (NORMAL) Platelet Morphology NORMAL APPEARANCE (NORMAL) RBC Morph Micro Appear NORMAL APPEARANCE (NORMAL) Bld Gas Analysis Time 0628 Sample Site RIGHT RADIAL ABG pH 7.36 (7.35-7.45) ABG pCO2 33 L (34-45) mmHg ABG pO2 75 L (80-100) mmHg ABG HCO3 18.5 L (22.0-26.0) mmol/L ABG Total CO2 19.5 L (21.0-29.0) MMOL/L ABG O2 Saturation 95 (94-98) % ABG Base Excess -6.1 L (-2.0-3.0) mmol/L Juan Test POSITIVE VBG pH (7.31-7.41) Ionized Calcium (1.15-1.33) mmol/L Respiration Rate 12 b/min O2 Delivery Device VENTILATOR Vent Mode AC/VC FiO2 100.00 Tidal Volume 450 mL PEEP 14 cmH2O Sodium 136 (135-145) mmol/L Potassium 4.7 (3.5-5.0) mmol/L Chloride 103 (101-111) mmol/L Carbon Dioxide 19 L (21-32) mmol/L Anion Gap 14.0 H (6-13) BUN 50 H (6-20) mg/dL Creatinine 3.6 H (0.4-1.0) mg/dL Estimated GFR (MDRD) 13 L (>89) Glucose 205 H (70-100) mg/dL POC Whole Bld Glucose (70 - 100) mg/dL Calcium 8.2 L (8.5-10.3) mg/dL Phosphorus (2.5-4.6) mg/dL Magnesium (1.7-2.8) mg/dL Total Bilirubin 1.3 H (0.2-1.0) mg/dL AST 18 (10-42) IU/L ALT 120 H (10-60) IU/L Alkaline Phosphatase 187 H (42-121) IU/L B-Natriuretic Peptide (5-100) pg/mL Total Protein 6.2 L (6.7-8.2) g/dL Albumin 2.0 L (3.2-5.5) g/dL Globulin 4.2 (2.1-4.2) g/dL Albumin/Globulin Ratio 0.5 L (1.0-2.2) Prealbumin 12 L (18-45) mg/dL 02/14/22 02/14/22 02/14/22 Range/Units 05:35 05:35 05:35 WBC (4.8-10.8) x10^3/uL RBC (4.20-5.40) 10^6/uL Hgb (12.0-16.0) g/dL Hct (37.0-47.0) % MCV (81.0-99.0) fL MCH (27.0-31.0) pg MCHC (32.0-36.0) g/dL RDW (12.0-15.0) % Plt Count (130-450) 10^3/uL MPV (7.9-10.8) fL Neut # (Auto) Lymph # (Auto) Winn # (Auto) Eos # (Auto) Baso # (Auto) Absolute Nucleated RBC Total Counted Band Neuts % (Manual) (0 - 10) % Abnorm Lymph % (Manual) % Metamyelocytes % ( - 0) % Myelocytes % ( - 0) % Nucleated RBC % Neutrophils # (Manual) (1.5-6.6) 10^3/uL Lymphocytes # (Manual) (1.5-3.5) 10^3/uL Monocytes # (Manual) (0.0-1.0) 10^3/uL Eosinophils # (Manual) (0-0.7) 10^3/uL Basophils # (Manual) (0-0.1) 10^3/uL Differential Comment WBC Morphology (NORMAL) Platelet Estimate (NORMAL) Platelet Morphology (NORMAL) RBC Morph Micro Appear (NORMAL) Bld Gas Analysis Time Sample Site ABG pH (7.35-7.45) ABG pCO2 (34-45) mmHg ABG pO2 (80-100) mmHg ABG HCO3 (22.0-26.0) mmol/L ABG Total CO2 (21.0-29.0) MMOL/L ABG O2 Saturation (94-98) % ABG Base Excess (-2.0-3.0) mmol/L Juan Test VBG pH 7.332 (7.31-7.41) Ionized Calcium 1.09 L (1.15-1.33) mmol/L Respiration Rate b/min O2 Delivery Device Vent Mode FiO2 Tidal Volume mL PEEP cmH2O Sodium (135-145) mmol/L Potassium (3.5-5.0) mmol/L Chloride (101-111) mmol/L Carbon Dioxide (21-32) mmol/L Anion Gap (6-13) BUN (6-20) mg/dL Creatinine (0.4-1.0) mg/dL Estimated GFR (MDRD) (>89) Glucose (70-100) mg/dL POC Whole Bld Glucose (70 - 100) mg/dL Calcium (8.5-10.3) mg/dL Phosphorus 6.8 H (2.5-4.6) mg/dL Magnesium 2.2 (1.7-2.8) mg/dL Total Bilirubin (0.2-1.0) mg/dL AST (10-42) IU/L ALT (10-60) IU/L Alkaline Phosphatase (42-121) IU/L B-Natriuretic Peptide 204 H (5-100) pg/mL Total Protein (6.7-8.2) g/dL Albumin (3.2-5.5) g/dL Globulin (2.1-4.2) g/dL Albumin/Globulin Ratio (1.0-2.2) Prealbumin (18-45) mg/dL 02/14/22 02/13/22 02/13/22 Range/Units 00:09 20:24 17:50 WBC (4.8-10.8) x10^3/uL RBC (4.20-5.40) 10^6/uL Hgb (12.0-16.0) g/dL Hct (37.0-47.0) % MCV (81.0-99.0) fL MCH (27.0-31.0) pg MCHC (32.0-36.0) g/dL RDW (12.0-15.0) % Plt Count (130-450) 10^3/uL MPV (7.9-10.8) fL Neut # (Auto) Lymph # (Auto) Winn # (Auto) Eos # (Auto) Baso # (Auto) Absolute Nucleated RBC Total Counted Band Neuts % (Manual) (0 - 10) % Abnorm Lymph % (Manual) % Metamyelocytes % ( - 0) % Myelocytes % ( - 0) % Nucleated RBC % Neutrophils # (Manual) (1.5-6.6) 10^3/uL Lymphocytes # (Manual) (1.5-3.5) 10^3/uL Monocytes # (Manual) (0.0-1.0) 10^3/uL Eosinophils # (Manual) (0-0.7) 10^3/uL Basophils # (Manual) (0-0.1) 10^3/uL Differential Comment WBC Morphology (NORMAL) Platelet Estimate (NORMAL) Platelet Morphology (NORMAL) RBC Morph Micro Appear (NORMAL) Bld Gas Analysis Time Sample Site ABG pH (7.35-7.45) ABG pCO2 (34-45) mmHg ABG pO2 (80-100) mmHg ABG HCO3 (22.0-26.0) mmol/L ABG Total CO2 (21.0-29.0) MMOL/L ABG O2 Saturation (94-98) % ABG Base Excess (-2.0-3.0) mmol/L Juan Test VBG pH (7.31-7.41) Ionized Calcium (1.15-1.33) mmol/L Respiration Rate b/min O2 Delivery Device Vent Mode FiO2 Tidal Volume mL PEEP cmH2O Sodium (135-145) mmol/L Potassium (3.5-5.0) mmol/L Chloride (101-111) mmol/L Carbon Dioxide (21-32) mmol/L Anion Gap (6-13) BUN (6-20) mg/dL Creatinine (0.4-1.0) mg/dL Estimated GFR (MDRD) (>89) Glucose (70-100) mg/dL POC Whole Bld Glucose 166 H 174 H 181 H (70 - 100) mg/dL Calcium (8.5-10.3) mg/dL Phosphorus (2.5-4.6) mg/dL Magnesium (1.7-2.8) mg/dL Total Bilirubin (0.2-1.0) mg/dL AST (10-42) IU/L ALT (10-60) IU/L Alkaline Phosphatase (42-121) IU/L B-Natriuretic Peptide (5-100) pg/mL Total Protein (6.7-8.2) g/dL Albumin (3.2-5.5) g/dL Globulin (2.1-4.2) g/dL Albumin/Globulin Ratio (1.0-2.2) Prealbumin (18-45) mg/dL 02/13/22 02/13/22 02/13/22 Range/Units 11:39 11:20 11:20 WBC 15.9 H (4.8-10.8) x10^3/uL RBC 3.02 L (4.20-5.40) 10^6/uL Hgb 8.7 L (12.0-16.0) g/dL Hct 27.2 L (37.0-47.0) % MCV 90.1 (81.0-99.0) fL MCH 28.8 (27.0-31.0) pg MCHC 32.0 (32.0-36.0) g/dL RDW 13.0 (12.0-15.0) % Plt Count 311 (130-450) 10^3/uL MPV 9.6 (7.9-10.8) fL Neut # (Auto) Not Reportable Lymph # (Auto) Not Reportable Winn # (Auto) Not Reportable Eos # (Auto) Not Reportable Baso # (Auto) Not Reportable Absolute Nucleated RBC Not Reportable Total Counted 100 Band Neuts % (Manual) 1 (0 - 10) % Abnorm Lymph % (Manual) 0 % Metamyelocytes % ( - 0) % Myelocytes % ( - 0) % Nucleated RBC % Not Reportable Neutrophils # (Manual) 12.7 H (1.5-6.6) 10^3/uL Lymphocytes # (Manual) 1.0 L (1.5-3.5) 10^3/uL Monocytes # (Manual) 2.1 H (0.0-1.0) 10^3/uL Eosinophils # (Manual) 0.2 (0-0.7) 10^3/uL Basophils # (Manual) 0.0 (0-0.1) 10^3/uL Differential Comment MANUAL DIFFERENTIAL WBC Morphology (NORMAL) Platelet Estimate NORMAL (130-450,000) (NORMAL) Platelet Morphology NORMAL APPEARANCE (NORMAL) RBC Morph Micro Appear NORMAL APPEARANCE (NORMAL) Bld Gas Analysis Time Sample Site ABG pH (7.35-7.45) ABG pCO2 (34-45) mmHg ABG pO2 (80-100) mmHg ABG HCO3 (22.0-26.0) mmol/L ABG Total CO2 (21.0-29.0) MMOL/L ABG O2 Saturation (94-98) % ABG Base Excess (-2.0-3.0) mmol/L Juan Test VBG pH (7.31-7.41) Ionized Calcium (1.15-1.33) mmol/L Respiration Rate b/min O2 Delivery Device Vent Mode FiO2 Tidal Volume mL PEEP cmH2O Sodium 135 (135-145) mmol/L Potassium 4.5 (3.5-5.0) mmol/L Chloride 103 (101-111) mmol/L Carbon Dioxide 20 L (21-32) mmol/L Anion Gap 12.0 (6-13) BUN 40 H (6-20) mg/dL Creatinine 2.8 H (0.4-1.0) mg/dL Estimated GFR (MDRD) 17 L (>89) Glucose 197 H (70-100) mg/dL POC Whole Bld Glucose 174 H (70 - 100) mg/dL Calcium 8.1 L (8.5-10.3) mg/dL Phosphorus (2.5-4.6) mg/dL Magnesium (1.7-2.8) mg/dL Total Bilirubin (0.2-1.0) mg/dL AST (10-42) IU/L ALT (10-60) IU/L Alkaline Phosphatase (42-121) IU/L B-Natriuretic Peptide (5-100) pg/mL Total Protein (6.7-8.2) g/dL Albumin (3.2-5.5) g/dL Globulin (2.1-4.2) g/dL Albumin/Globulin Ratio (1.0-2.2) Prealbumin (18-45) mg/dL Sepsis Event Note (H) - Evaluation Current Stage of Sepsis: Ruled out Possible source of Sepsis: positive: Pulmonary - Sepsis Criteria Sepsis Criteria: Respiratory: Increasing oxygen requirements, Metabolic: lactate > 2 mmol/L Assessment/Plan - Problem List (1) ARDS (adult respiratory distress syndrome) Impression: She presented as acute respiratory failure in the field when picked up by EMS. She was immediately intubated and has remained intubated since February 08. She has been on an FiO2 of 100% since that time. PEEP started at 6. She remained stable for the first 2 days and started drifting down on her 02 Sats below 90% yesterday. PEEP is currently at 14. No history of smoking, asthma, pneumonia or chronic lung disease that I can find from her limited history available. I started wondering about what caused this event. Could she have aspirated, could she have inhaled a foreign body. General surgery on-call was able to see her February 09 and do a type of bronchoscopy where he got back some red granular secretion that was not blood, RN told me today it may have been candy . Those were submitted for culture and her sputum grew out MRSA. 02/12: Last Hospitalist was able to speak to Dr. Campbell, ICU on-call at [facility]. Her number is [phone], after speaking to the [facility] transfer center and they have no beds. After discussing the case with Dr. Campbell, she recommends: +Slowly increasing PEEP over the next hour from 8, to 10, to 12. Go as high as 16 and slowly reduce her FiO2 to at least 70 or 80%. Her blood pressure may drop with this and support her with dopamine. + Make sure she is on DVT prophylaxis, she is +Make sure she is getting adequate nutrition, she is with tube feedings started 02/11 + Antibiotic coverage is adequate with cefepime, vancomycin and Flagyl but has gone off Vanc and went to Linezolid + Continue to see if we can make arrangements for transfer Plan: We have been gong up on PEEP since02/12 but FIO2 is still 100%. Will decrease FIO2 to-90-95%, since sat was 95% on morning ABG. If we cannot get her transferred, will need to think about long-term vent support with tracheostomy. We did call [facility] directly,and no beds. We have also called [facility] again today. (2) Nephrotoxic acute renal failure Impression: Her urine output started going down 02/12. And by 02/13, it sharply diminished. She continues to be oliguric today. We suspect this is due to direct nephrotoxic injury from her Vancomycin. Creatinine has climbed. She was 1.2 on admission, was able to get down to 0.8 when she was hydrated. On 02/13 creat was 2.8, today creat is 3.6 . Plan: Stopped IV fluids. The ICU attending at [place] had recommended up to 200 mg of Lasix. She got 100 mg of Lasix and no response. Today we will try 200 mg Lasix. Add meds like PhosLo if we can, calcium carbonate via NG We are trying to get her transferred. There have been no callbacks from [facility] about a possible ICU bed at any facility. (3) MRSA (methicillin resistant staphylococcus aureus) pneumonia Impression: Unclear what the event was that made this woman have problem #1. She does have diabetes and she [place] but she has no history of IV drug abuse. Our suspicion is that she may have aspirated but we may never know Nevertheless her sputum cultures are growing out MRSA. She was initially on Rocephin and azithromycin. She was then switched to cefepime. And Flagyl. Once her MRSA cultures were resulted February 10, vancomycin was added. She received 2 doses. Trough > 30 however. White cell count is slowly responding. WBC was 20.5 in admission and is 15.7 today. Plan: We stopped vancomycin and changed to linezolid. (4) Pneumonia Impression: CXR was done today, since none in 5 days. It was read as improved CHF and a definite consolidation on R side. This may be aspiration vs CAP. Plan: Continue present antibx and vent support, weaning down as tolerated. Qualifiers: Pneumonia type: due to unspecified organism Laterality: bilateral Lung location: unspecified part of lung Qualified Code(s): J18.9 - Pneumonia, unspecified organism (5) Type II diabetes mellitus, uncontrolled Conclusion/Plan: On Lantus 36 units, Glucotrol XL 2.5 mg at her care facility. Intolerance to metformin noted. We started Lantus 20 units and 3 units of short acting q6h since she was n.p.o. plus Sliding scale insulin. We stopped the 3 units q6h when glucose was too tightly controlled and worried about hypoglycemia Tube feeding started February 11. Lantus increased to 24 units 02/12 because glucose not controlled. Glucose 138, 174, 198, 184, 187 on 02/12. Then glu 195, 147, 166, 174 on 02/13 Plan: No change in daily lantus or SS coverage q6h. Qualifiers: Glycemic state: with hyperglycemia Qualified Code(s): E11.65 - Type 2 diabetes mellitus with hyperglycemia (6) Hypertension Conclusion/Plan: Medications at home are Norvasc but no diuretic, etc. Not on an NAA inhibitor due to severe allergy Plan: We ordered her Norvasc via NG Qualifiers: Hypertension type: primary hypertension Qualified Code(s): I10 - Essential (primary) hypertension (7) Nondisplaced fracture of lateral malleolus of left fibula, subsequent encounter for closed fracture with malunion Conclusion/Plan: She was seen by Ortho on 01/17/2022 and their instructions were: (1) I would continue your short leg boot walker until I recheck you in a month you can bear weight as tolerated on your left leg with your short leg boot walker. When you are sitting, you may remove the boot to work on moving your left ankle so that he would obtain more motion to your left ankle. 2) I will recheck you in 1 month and obtain new x-rays. Your diabetes may affect your healing of your fracture, more slowly to heal. Keep your left foot elevated is much as possible to reduce swelling. Your swelling will persist for 3 to 4 months Plan: She is on DVT prophylaxis here. Because of her renal failure, Lovenox 40 mg sq daily will be changed to Heparin 5000 U bid, starting tonite. Discussed with Colin Pharmacist. (8) Morbid obesity BMI 45-40 As per Hx.
[2022-02-14] MEDS: ALBUTEROL NEB 2.5 MG/3 ML INH PRN (08:50)
[2022-02-14] MEDS ORDERED: FUROSEMIDE 100 MG/10 ML VIAL IVP ONE (08:55)
--- NOTE | 2022-02-14 09:28 | XRAY Report ---
PROCEDURE: Chest 1 View X-Ray INDICATIONS: On vent and still hypoxic TECHNIQUE: One view of the chest was acquired. COMPARISON: None. FINDINGS: Surgical changes and devices: ET tube, central line, and NG tube are in satisfactory position.. Lungs and pleura: Extensive right lung consolidation, as before. Improved left lung consolidation wi th improved pulmonary edema. Mediastinum: Mediastinal contours appear normal. Cardiomegaly. Bones and chest wall: No suspicious bony lesions. Overlying soft tissues appear unremarkable. IMPRESSION: 1. Lines and tubes in satisfactory position. 2. Dense consolidation of the right lung, somewhat improved consolidation of the left lung. Findings most likely represent slight improvement in congestive heart failure. Cannot exclude superimposed pne umonia. Reviewed by: Wai Meade MD on 02/14/2022 9:27 AM PST Approved by: Wai Meade MD on 02/14/2022 9:27 AM [facility] Station ID: [id number]
[2022-02-14] MEDS: ENOXAPARIN 40 MG/0.4 ML SYRINGE SUBQ SCH (09:54)
[2022-02-14] MEDS: CALCIUM CARBONATE CHEW 500 MG TABLET NG SCH ×3 (09:54→16:19)
[2022-02-14] MEDS: amLODIPine 5 MG TABLET GT SCH (09:54)
[2022-02-14] MEDS: ethyl alcohoL 62% SWAB AMPULE NAS SCH ×2 (09:54→20:34)
[2022-02-14] MEDS: CHLORHEXIDINE GLUCONATE 15 ML UDC PO SCH ×2 (09:54→20:34)
[2022-02-14] MEDS: NYSTATIN POWDER 15 GM TOP SCH ×2 (09:55→20:35)
[2022-02-14] MEDS: MORPHINE 2 MG/ML CARPUJECT IVP PRN ×2 (09:56→16:20)
[2022-02-14] MEDS: polyethylene glycoL 3350 17 GM PACKET PO SCH (09:57)
[2022-02-14] MEDS: INSULIN GLARGINE-YFGN 300 UNIT/3 ML PEN SUBQ SCH (20:48)
[2022-02-15] MEDS: SODIUM CHLORIDE FLUSH 0.9% 10 ML SYRINGE IVP SCH ×3 (00:12→17:12)
[2022-02-15] MEDS: INSULIN REGULAR HUMAN 300 UNIT/3 ML VIAL SUBQ SCH ×4 (00:12→18:15)
[2022-02-15] MEDS: CEFEPIME 1 GM in SODIUM CHLORIDE 0.9% MINIBAG 100 ML IV SCH ×2 (01:07→13:20)
[2022-02-15] MEDS: SODIUM CHLORIDE FLUSH 0.9% 10 ML SYRINGE IVP PRN ×7 (01:15→11:45)
[2022-02-15] MEDS: metroNIDAZOLE 500 MG/100 ML 500 MG/100 ML BAG IV SCH ×3 (03:15→19:38)
[2022-02-15] MEDS: ACETAMINOPHEN 650 MG SUPP PR PRN (04:27)
[2022-02-15] MEDS: LINEZOLID 600 MG/300 ML 600 MG/300 ML BAG IV SCH ×2 (04:47→16:49)
[2022-02-15 05:44] LABS: BASOPHILS % (AUTO) 0.8 %; EOSINOPHILS % (AUTO) 5.2 %; HCT - HEMATOCRIT 29.4 % (37.0-47.0); HGB - HEMOGLOBIN 9.3 g/dL (12.0-16.0); LYMPHOCYTES % (AUTO) 11.1 %; MEAN CORPUSCULAR HEMOGLOBIN 28.5 pg (27.0-31.0); MEAN CORPUSCULAR HGB CONC 31.6 g/dL (32.0-36.0); MEAN CORPUSCULAR VOLUME 90.2 fL (81.0-99.0); MEAN PLATELET VOLUME 9.5 fL (7.9-10.8); MONOCYTES % (AUTO) 12.8 %; NEUTROPHILS % (AUTO) 61.6 %; PLT - PLATELET COUNT 488 10^3/uL (130-450); RED BLOOD COUNT 3.26 10^6/uL (4.20-5.40); RED CELL DISTRIBUTION WIDTH 13.2 % (12.0-15.0); WHITE BLOOD COUNT 18.1 x10^3/uL (4.8-10.8)
[2022-02-15 05:53] LABS: ABNORMAL LYMPHS % (MANUAL) 0 %; CALCIUM 8.3 mg/dL (8.5-10.3); CREATININE 4.3 mg/dL (0.4-1.0); MAGNESIUM 2.3 mg/dL (1.7-2.8); PHOSPHORUS 6.9 mg/dL (2.5-4.6); POTASSIUM 4.9 mmol/L (3.5-5.0)
[2022-02-15] MEDS: PROPOFOL 1000 MG/100 ML 1,000 MG/100 ML BOTTLE IV SCH ×5 (05:55→22:26)
[2022-02-15 05:57] LABS: CALCIUM, IONIZED 1.08 mmol/L (1.15-1.33); VBG PH 7.27 (7.31-7.41)
[2022-02-15 06:18] LABS: BAND NEUTROPHILS % (MANUAL) 2 %; BASOPHILS # (MANUAL) 0.2 10^3/uL (0-0.1); BASOPHILS % (MANUAL) 1 %; EOSINOPHILS # (MANUAL) 0.7 10^3/uL (0-0.7); LYMPHOCYTES # (MANUAL) 1.6 10^3/uL (1.5-3.5); LYMPHOCYTES % (MANUAL) 9 %; METAMYELOCYTES % (MANUAL) 1 %; MONOCYTES # (MANUAL) 2.4 10^3/uL (0.0-1.0); MYELOCYTES % (MANUAL) 4 %; NEUTROPHILS # (MANUAL) 12.3 10^3/uL (1.5-6.6)
[2022-02-15 06:21] LABS: DIFFERENTIAL COMMENT MANUAL DIFFERENTIAL; PLATELET ESTIMATE, MANUAL INCREASED (>450,000) (NORMAL); PLATELET MORPHOLOGY NORMAL APPEARANCE (NORMAL); WBC MORPHOLOGY (MULTIPLE) NORMAL APPEARANCE (NORMAL)
[2022-02-15] MEDS: PANTOPRAZOLE 40 MG VIAL IVP SCH (06:27)
[2022-02-15] MEDS ORDERED: SODIUM BICARBONATE 100 MEQ in DEXTROSE 5% 1,000 ML IV SCH (08:00)
[2022-02-15 08:26] LABS: ABG HCO3 17.5 mmol/L (22.0-26.0); ABG OXYGEN SATURATION 93 % (94-98); ABG PCO2 34 mmHg (34-45); ABG PH 7.32 (7.35-7.45); ABG PO2 73 mmHg (80-100); ALLEN TEST POSITIVE
[2022-02-15 08:27] LABS: ABG MODE OF VENTILATION ASSIST/CONTROL; ABG RESPIRATORY RATE 12 b/min
[2022-02-15] MEDS: amLODIPine 5 MG TABLET GT SCH (09:54)
[2022-02-15] MEDS: CALCIUM CARBONATE CHEW 500 MG TABLET NG SCH ×3 (09:54→16:27)
[2022-02-15] MEDS: ethyl alcohoL 62% SWAB AMPULE NAS SCH ×2 (09:54→21:09)
[2022-02-15] MEDS: CHLORHEXIDINE GLUCONATE 15 ML UDC PO SCH ×2 (09:54→21:09)
[2022-02-15] MEDS: HEPARIN 5,000 UNIT/ML VIAL SUBQ SCH ×2 (09:57→21:10)
[2022-02-15] MEDS: NYSTATIN POWDER 15 GM TOP SCH ×2 (10:36→21:27)
[2022-02-15] MEDS: polyethylene glycoL 3350 17 GM PACKET PO SCH (10:36)
[2022-02-15] MEDS: MIDAZOLAM DRIP 50 MG/50 ML 50 MG/50 ML BAG IV SCH ×3 (11:46→21:44)
[2022-02-15] MEDS: ZINC OXIDE 20% OINT 30 GM TUBE TOP PRN (14:00)
[2022-02-15] MEDS ORDERED: FUROSEMIDE 100 MG/10 ML VIAL IVP STA (14:41)
[2022-02-15 15:50] LABS: ABG BASE EXCESS -9.7 mmol/L (-2.0-3.0); ABG HCO3 15.3 mmol/L (22.0-26.0); ABG PCO2 30 mmHg (34-45); ABG PH 7.32 (7.35-7.45); ABG TCO2 16.2 MMOL/L (21.0-29.0); ALLEN TEST POSITIVE
[2022-02-15 15:51] LABS: ABG MODE OF VENTILATION ASSIST/CONTROL; ABG RESPIRATORY RATE 12 b/min
[2022-02-15 15:52] LABS: ABG OXYGEN SATURATION 85 % (94-98); ABG PO2 52 mmHg (80-100)
[2022-02-15] MEDS ORDERED: SODIUM BICARBONATE ABBOJECT 50 MEQ/50 ML SYRINGE IVP ONE (16:30)
[2022-02-15] MEDS: SODIUM BICARBONATE 150 MEQ in DEXTROSE 5% 1,000 ML IV SCH (16:40)
--- NOTE | 2022-02-15 19:33 | PROVIDER PROGRESS NOTE ---
Subjective - Subjective Pt reports feeling: Worse (Creat increasing, urine output is about 10 cc/hr, her serum pH is dropping, she awakens when turned and repositioned and she is developing anasarca.) Objective - Vital Signs/Intake & Output Vital Signs: Vital Signs Pulse Pulse Resp BP Pulse Ox 02/15/22 19:10 67 02/15/22 19:00 67 23 123/58 L 90 L 02/15/22 18:00 67 21 119/58 L 91 L 02/15/22 17:10 67 02/15/22 17:00 68 19 133/70 H 91 L 02/15/22 16:00 65 26 H 122/60 87 L Intake & Output: Intake & Output 02/12/22 02/13/22 02/14/22 02/15/22 23:59 23:59 23:59 23:59 Intake Total 3999.819 2598.886 3824.676 3787.545 Output Total 523 321 351 560 Balance 3476.819 2277.886 3473.676 3227.545 - Objective General Appearance: positive: Other (sedated on the vent, OG tube in) Eyes Bilateral: positive: Normal inspection, Other (Obese) ENT: positive: Other (Cannot eval JVP due to morbid obesity) Respiratory: positive: Breath sounds nml (on the vent) Cardiovascular: positive: Regular rate & rhythm, No murmur (distant heart sounds due to morbid obesity) Abdomen: positive: Other (Soft, obese with a pannus) Skin: positive: Warm, Dry Extremities: positive: Other (anasarca: 4+ edema to groin, 4+ edema to elbows) Neurologic/Psychiatric: positive: Other (sedated) - Lab Results Fish Bones: 02/15/22 04:52 02/15/22 04:52 Other Labs: Lab Results x24hrs 02/15/22 02/15/22 02/15/22 Range/Units 17:28 15:37 11:57 WBC (4.8-10.8) x10^3/uL RBC (4.20-5.40) 10^6/uL Hgb (12.0-16.0) g/dL Hct (37.0-47.0) % MCV (81.0-99.0) fL MCH (27.0-31.0) pg MCHC (32.0-36.0) g/dL RDW (12.0-15.0) % Plt Count (130-450) 10^3/uL MPV (7.9-10.8) fL Neut # (Auto) Lymph # (Auto) Cass # (Auto) Eos # (Auto) Baso # (Auto) Absolute Nucleated RBC Total Counted Band Neuts % (Manual) (0 - 10) % Abnorm Lymph % (Manual) % Metamyelocytes % ( - 0) % Myelocytes % ( - 0) % Nucleated RBC % Neutrophils # (Manual) (1.5-6.6) 10^3/uL Lymphocytes # (Manual) (1.5-3.5) 10^3/uL Monocytes # (Manual) (0.0-1.0) 10^3/uL Eosinophils # (Manual) (0-0.7) 10^3/uL Basophils # (Manual) (0-0.1) 10^3/uL Differential Comment WBC Morphology (NORMAL) Platelet Estimate (NORMAL) Platelet Morphology (NORMAL) RBC Morph Micro Appear (NORMAL) Bld Gas Analysis Time 1544 Sample Site RIGHT RADIAL ABG pH 7.32 L (7.35-7.45) ABG pCO2 30 L (34-45) mmHg ABG pO2 52 L* (80-100) mmHg ABG HCO3 15.3 L (22.0-26.0) mmol/L ABG Total CO2 16.2 L (21.0-29.0) MMOL/L ABG O2 Saturation 85 L* (94-98) % ABG Base Excess -9.7 L (-2.0-3.0) mmol/L Juan Test POSITIVE VBG pH (7.31-7.41) Ionized Calcium (1.15-1.33) mmol/L Respiration Rate 12 b/min O2 Delivery Device VENTILATOR Vent Mode ASSIST/CONTROL FiO2 100.00 Tidal Volume 450 mL PEEP 14 cmH2O Sodium (135-145) mmol/L Potassium (3.5-5.0) mmol/L Chloride (101-111) mmol/L Carbon Dioxide (21-32) mmol/L Anion Gap (6-13) BUN (6-20) mg/dL Creatinine (0.4-1.0) mg/dL Estimated GFR (MDRD) (>89) Glucose (70-100) mg/dL POC Whole Bld Glucose 218 H 218 H (70 - 100) mg/dL Calcium (8.5-10.3) mg/dL Phosphorus (2.5-4.6) mg/dL Magnesium (1.7-2.8) mg/dL 02/15/22 02/15/22 02/15/22 Range/Units 08:15 06:26 04:52 WBC 18.1 H (4.8-10.8) x10^3/uL RBC 3.26 L (4.20-5.40) 10^6/uL Hgb 9.3 L (12.0-16.0) g/dL Hct 29.4 L (37.0-47.0) % MCV 90.2 (81.0-99.0) fL MCH 28.5 (27.0-31.0) pg MCHC 31.6 L (32.0-36.0) g/dL RDW 13.2 (12.0-15.0) % Plt Count 488 H (130-450) 10^3/uL MPV 9.5 (7.9-10.8) fL Neut # (Auto) Not Reportable Lymph # (Auto) Not Reportable Cass # (Auto) Not Reportable Eos # (Auto) Not Reportable Baso # (Auto) Not Reportable Absolute Nucleated RBC Not Reportable Total Counted 100 Band Neuts % (Manual) 2 (0 - 10) % Abnorm Lymph % (Manual) 0 % Metamyelocytes % 1 H ( - 0) % Myelocytes % 4 H ( - 0) % Nucleated RBC % Not Reportable Neutrophils # (Manual) 12.3 H (1.5-6.6) 10^3/uL Lymphocytes # (Manual) 1.6 (1.5-3.5) 10^3/uL Monocytes # (Manual) 2.4 H (0.0-1.0) 10^3/uL Eosinophils # (Manual) 0.7 (0-0.7) 10^3/uL Basophils # (Manual) 0.2 H (0-0.1) 10^3/uL Differential Comment MANUAL DIFFERENTIAL WBC Morphology NORMAL APPEARANCE (NORMAL) Platelet Estimate INCREASED (>450,000) (NORMAL) Platelet Morphology NORMAL APPEARANCE (NORMAL) RBC Morph Micro Appear 1+ TEARDROP CELLS (NORMAL) Bld Gas Analysis Time 0820 Sample Site RIGHT RADIAL ABG pH 7.32 L (7.35-7.45) ABG pCO2 34 (34-45) mmHg ABG pO2 73 L (80-100) mmHg ABG HCO3 17.5 L (22.0-26.0) mmol/L ABG Total CO2 18.0 L (21.0-29.0) MMOL/L ABG O2 Saturation 93 L (94-98) % ABG Base Excess -9.0 L (-2.0-3.0) mmol/L Juan Test POSITIVE VBG pH (7.31-7.41) Ionized Calcium (1.15-1.33) mmol/L Respiration Rate 12 b/min O2 Delivery Device VENTILATOR Vent Mode ASSIST/CONTROL FiO2 90.00 Tidal Volume 450 mL PEEP 12 cmH2O Sodium (135-145) mmol/L Potassium (3.5-5.0) mmol/L Chloride (101-111) mmol/L Carbon Dioxide (21-32) mmol/L Anion Gap (6-13) BUN (6-20) mg/dL Creatinine (0.4-1.0) mg/dL Estimated GFR (MDRD) (>89) Glucose (70-100) mg/dL POC Whole Bld Glucose 173 H (70 - 100) mg/dL Calcium (8.5-10.3) mg/dL Phosphorus (2.5-4.6) mg/dL Magnesium (1.7-2.8) mg/dL 02/15/22 02/15/22 02/15/22 Range/Units 04:52 04:52 00:10 WBC (4.8-10.8) x10^3/uL RBC (4.20-5.40) 10^6/uL Hgb (12.0-16.0) g/dL Hct (37.0-47.0) % MCV (81.0-99.0) fL MCH (27.0-31.0) pg MCHC (32.0-36.0) g/dL RDW (12.0-15.0) % Plt Count (130-450) 10^3/uL MPV (7.9-10.8) fL Neut # (Auto) Lymph # (Auto) Cass # (Auto) Eos # (Auto) Baso # (Auto) Absolute Nucleated RBC Total Counted Band Neuts % (Manual) (0 - 10) % Abnorm Lymph % (Manual) % Metamyelocytes % ( - 0) % Myelocytes % ( - 0) % Nucleated RBC % Neutrophils # (Manual) (1.5-6.6) 10^3/uL Lymphocytes # (Manual) (1.5-3.5) 10^3/uL Monocytes # (Manual) (0.0-1.0) 10^3/uL Eosinophils # (Manual) (0-0.7) 10^3/uL Basophils # (Manual) (0-0.1) 10^3/uL Differential Comment WBC Morphology (NORMAL) Platelet Estimate (NORMAL) Platelet Morphology (NORMAL) RBC Morph Micro Appear (NORMAL) Bld Gas Analysis Time Sample Site ABG pH (7.35-7.45) ABG pCO2 (34-45) mmHg ABG pO2 (80-100) mmHg ABG HCO3 (22.0-26.0) mmol/L ABG Total CO2 (21.0-29.0) MMOL/L ABG O2 Saturation (94-98) % ABG Base Excess (-2.0-3.0) mmol/L Juan Test VBG pH 7.270 L (7.31-7.41) Ionized Calcium 1.08 L (1.15-1.33) mmol/L Respiration Rate b/min O2 Delivery Device Vent Mode FiO2 Tidal Volume mL PEEP cmH2O Sodium 136 (135-145) mmol/L Potassium 4.9 (3.5-5.0) mmol/L Chloride 102 (101-111) mmol/L Carbon Dioxide 18 L (21-32) mmol/L Anion Gap 16.0 H (6-13) BUN 60 H (6-20) mg/dL Creatinine 4.3 H (0.4-1.0) mg/dL Estimated GFR (MDRD) 10 L (>89) Glucose 168 H (70-100) mg/dL POC Whole Bld Glucose 140 H (70 - 100) mg/dL Calcium 8.3 L (8.5-10.3) mg/dL Phosphorus 6.9 H (2.5-4.6) mg/dL Magnesium 2.3 (1.7-2.8) mg/dL 11/29/22 Range/Units 20:29 WBC (4.8-10.8) x10^3/uL RBC (4.20-5.40) 10^6/uL Hgb (12.0-16.0) g/dL Hct (37.0-47.0) % MCV (81.0-99.0) fL MCH (27.0-31.0) pg MCHC (32.0-36.0) g/dL RDW (12.0-15.0) % Plt Count (130-450) 10^3/uL MPV (7.9-10.8) fL Neut # (Auto) Lymph # (Auto) Cass # (Auto) Eos # (Auto) Baso # (Auto) Absolute Nucleated RBC Total Counted Band Neuts % (Manual) (0 - 10) % Abnorm Lymph % (Manual) % Metamyelocytes % ( - 0) % Myelocytes % ( - 0) % Nucleated RBC % Neutrophils # (Manual) (1.5-6.6) 10^3/uL Lymphocytes # (Manual) (1.5-3.5) 10^3/uL Monocytes # (Manual) (0.0-1.0) 10^3/uL Eosinophils # (Manual) (0-0.7) 10^3/uL Basophils # (Manual) (0-0.1) 10^3/uL Differential Comment WBC Morphology (NORMAL) Platelet Estimate (NORMAL) Platelet Morphology (NORMAL) RBC Morph Micro Appear (NORMAL) Bld Gas Analysis Time Sample Site ABG pH (7.35-7.45) ABG pCO2 (34-45) mmHg ABG pO2 (80-100) mmHg ABG HCO3 (22.0-26.0) mmol/L ABG Total CO2 (21.0-29.0) MMOL/L ABG O2 Saturation (94-98) % ABG Base Excess (-2.0-3.0) mmol/L Juan Test VBG pH (7.31-7.41) Ionized Calcium (1.15-1.33) mmol/L Respiration Rate b/min O2 Delivery Device Vent Mode FiO2 Tidal Volume mL PEEP cmH2O Sodium (135-145) mmol/L Potassium (3.5-5.0) mmol/L Chloride (101-111) mmol/L Carbon Dioxide (21-32) mmol/L Anion Gap (6-13) BUN (6-20) mg/dL Creatinine (0.4-1.0) mg/dL Estimated GFR (MDRD) (>89) Glucose (70-100) mg/dL POC Whole Bld Glucose 154 H (70 - 100) mg/dL Calcium (8.5-10.3) mg/dL Phosphorus (2.5-4.6) mg/dL Magnesium (1.7-2.8) mg/dL Sepsis Event Note (H) - Evaluation Current Stage of Sepsis: Ruled out Possible source of Sepsis: positive: Pulmonary - Sepsis Criteria Sepsis Criteria: Respiratory: Increasing oxygen requirements, Metabolic: lactate > 2 mmol/L Assessment/Plan - Problem List (1) ARDS (adult respiratory distress syndrome) Impression: (1) ARDS (adult respiratory distress syndrome) Impression: She presented as acute respiratory failure in the field when picked up by EMS. She was immediately intubated and has remained intubated since February 08. No history of smoking, asthma, pneumonia or chronic lung disease that I can find from her limited history available. I started wondering about what caused this event. Could she have aspirated, could she have inhaled a foreign body. General surgery on-call was able to see her February 09 and do a type of bronchoscopy where he got back some red granular secretion that was not blood, RN told me today it may have been candy . Those were submitted for culture and her sputum grew out MRSA. 02/12: Last Hospitalist was able to speak to Dr. Campbell, ICU on-call at [facility]. Her number is [phone], after speaking to the [facility] transfer center and they have no beds. After discussing the case with Dr. Campbell, she recommends: +Slowly increasing PEEP over the next hour from 8, to 10, to 12. Go as high as 16 and slowly reduce her FiO2 to at least 70 or 80%. Her blood pressure may drop with this and support her with dopamine. + Make sure she is on DVT prophylaxis, she is +Make sure she is getting adequate nutrition, she is with tube feedings started 02/11 + Antibiotic coverage is adequate with cefepime, vancomycin and Flagyl but has gone off Vanc and went to Linezolid + Continue to see if we can make arrangements for transfer Her O2 sats are worsening today to 85%, despite FIO2 of 100% and PEEP 14 Plan: We have been gong up on PEEP since 02/12 but FIO2 is still 100%. If we cannot get her transferred, will need to think about long-term vent support with tracheostomy. I called [facility] today, gave update about her creat increasing, urine output oliguric, new acidosis, and she is developing anasarca. [facility] is working on getting her transferred but said no beds available today anywhere, pt is on several waiting lists but she has a grim prognosis. (2) Nephrotoxic acute renal failure Impression: Her urine output started going down 02/12. And by 02/13, it sharply diminished. She continues to be oliguric today, nearly anuric. Since yesterday, she also has anasarca. Her creat has risen daily. Today she is acidotic, liklely due to uremia. We suspect her renal failure is due to direct nephrotoxic injury from her Vancomycin. Plan: We stopped IV fluids several days ago. The ICU attending at [place] had recommended up to 200 mg of Lasix. Will continue daily 200 mg iv Lasix. Added meds like PhosLo if we can, calcium carbonate via NG Will start a bicarb drip, follow pH by ABG or VBG. She needs kidney dialysis. We are trying to get her transferred. I called [facility] today, gave update about her creat increasing, urine output oliguric, new acidosis, and she is developing anasarca. [facility] is working on getting her transferred for dialysis and vent management, but there are no open beds to take her, as per [facility] when I spoke to them today. Pt has a grim prognosis. She is a Full Code. There are no contacts in her demographic info to call and inform. (3) MRSA (methicillin resistant staphylococcus aureus) pneumonia Impression: Unclear what the event was that made this woman have problem #1. She does have diabetes and she does live in a [place] [facility] [place] but she has no history of IV drug abuse. Our suspicion is that she may have aspirated but we may never know Nevertheless her sputum cultures are growing out MRSA. She was initially on Rocephin and azithromycin. She was then switched to cefepime. And Flagyl. Once her MRSA cultures were resulted February 10, vancomycin was added. She received 2 doses. Trough > 30 however. White cell count is slowly responding. WBC was 20.5 in admission and is 15.7 today. Plan: We stopped vancomycin and changed to linezolid. (4) Pneumonia Impression: CXR was done yesterday 02/14 and was read as improved CHF and a definite consolidation on R side. This may be aspiration vs CAP. Plan: Continue present antibx and vent support, weaning down when tolerated. Qualifiers: Pneumonia type: due to unspecified organism Laterality: bilateral Lung location: unspecified part of lung Qualified Code(s): J18.9 - Pneumonia, unspecified organism (5) Type II diabetes mellitus, uncontrolled Conclusion/Plan: On Lantus 36 units, Glucotrol XL 2.5 mg at her care facility. Intolerance to metformin noted. We started Lantus 20 units and 3 units of short acting q6h since she was n.p.o. plus Sliding scale insulin. We stopped the 3 units q6h when glucose was too tightly controlled and worried about hypoglycemia Tube feeding started February 11. Lantus increased to 24 units 02/12 because glucose not controlled. Glucose 138, 174, 198, 184, 187 on 02/12. Then glu 195, 147, 166, 174 on 02/13 Plan: No change in daily lantus or SS coverage q6h. Qualifiers: Glycemic state: with hyperglycemia Qualified Code(s): E11.65 - Type 2 diabetes mellitus with hyperglycemia (6) Hypertension Conclusion/Plan: Medications at home were Norvasc but no diuretic, etc. Not on an NAA inhibitor due to severe allergy Plan: We ordered her Norvasc via NG Qualifiers: Hypertension type: primary hypertension Qualified Code(s): I10 - Essential (primary) hypertension (7) Nondisplaced fracture of lateral malleolus of left fibula, subsequent encounter for closed fracture with malunion Conclusion/Plan: She was seen by Ortho on 01/17/2022 and their instructions were: (1) I would continue your short leg boot walker until I recheck you in a month you can bear weight as tolerated on your left leg with your short leg boot walker. When you are sitting, you may remove the boot to work on moving your left ankle so that he would obtain more motion to your left ankle. 2) I will recheck you in 1 month and obtain new x-rays. Your diabetes may affect your healing of your fracture, more slowly to heal. Keep your left foot elevated is much as possible to reduce swelling. Your swelling will persist for 3 to 4 months Plan: She is on DVT prophylaxis here. Because of her renal failure, Lovenox 40 mg sq daily will be changed to Heparin 5000 U bid, starting tonite. Discussed with Colin Pharmacist. (8) Morbid obesity BMI 45-40 As per Hx.
[2022-02-15] MEDS: INSULIN GLARGINE-YFGN 300 UNIT/3 ML PEN SUBQ SCH (21:09)
[2022-02-16] MEDS: INSULIN REGULAR HUMAN 300 UNIT/3 ML VIAL SUBQ SCH ×5 (00:30→23:55)
[2022-02-16] MEDS: CEFEPIME 1 GM in SODIUM CHLORIDE 0.9% MINIBAG 100 ML IV SCH ×2 (00:56→13:27)
[2022-02-16] MEDS: SODIUM CHLORIDE FLUSH 0.9% 10 ML SYRINGE IVP SCH ×4 (00:56→23:55)
[2022-02-16] MEDS: PROPOFOL 1000 MG/100 ML 1,000 MG/100 ML BOTTLE IV SCH ×4 (02:50→21:23)
[2022-02-16] MEDS: metroNIDAZOLE 500 MG/100 ML 500 MG/100 ML BAG IV SCH ×3 (03:44→18:30)
[2022-02-16] MEDS: SODIUM BICARBONATE 150 MEQ in DEXTROSE 5% 1,000 ML IV SCH ×2 (03:47→17:19)
[2022-02-16] MEDS: MIDAZOLAM DRIP 50 MG/50 ML 50 MG/50 ML BAG IV SCH (03:50)
[2022-02-16] MEDS: LINEZOLID 600 MG/300 ML 600 MG/300 ML BAG IV SCH ×2 (05:02→17:19)
[2022-02-16] MEDS: SODIUM CHLORIDE FLUSH 0.9% 10 ML SYRINGE IVP PRN ×2 (05:05→23:51)
[2022-02-16 05:38] LABS: BASOPHILS % (AUTO) 0.6 %; EOSINOPHILS % (AUTO) 5.7 %; HCT - HEMATOCRIT 25.2 % (37.0-47.0); LYMPHOCYTES % (AUTO) 10.5 %; MEAN CORPUSCULAR HEMOGLOBIN 28.6 pg (27.0-31.0); MEAN CORPUSCULAR HGB CONC 31.7 g/dL (32.0-36.0); MEAN PLATELET VOLUME 9.3 fL (7.9-10.8); MONOCYTES % (AUTO) 12.1 %; NEUTROPHILS % (AUTO) 58.8 %; PLT - PLATELET COUNT 455 10^3/uL (130-450); RED CELL DISTRIBUTION WIDTH 13.2 % (12.0-15.0); WHITE BLOOD COUNT 14.5 x10^3/uL (4.8-10.8)
[2022-02-16 05:48] LABS: ABNORMAL LYMPHS % (MANUAL) 0 %
[2022-02-16 05:54] LABS: ALBUMIN 1.8 g/dL (3.2-5.5); ALBUMIN/GLOBULIN RATIO 0.5 (1.0-2.2); BILIRUBIN,TOTAL 1.3 mg/dL (0.2-1.0); CALCIUM 7.7 mg/dL (8.5-10.3); CREATININE 4.8 mg/dL (0.4-1.0); MAGNESIUM 2.2 mg/dL (1.7-2.8); PHOSPHORUS 6.8 mg/dL (2.5-4.6); POTASSIUM 4.5 mmol/L (3.5-5.0); TOTAL PROTEIN 5.7 g/dL (6.7-8.2)
[2022-02-16 05:59] LABS: BAND NEUTROPHILS % (MANUAL) 4 %; LYMPHOCYTES # (MANUAL) 1.9 10^3/uL (1.5-3.5); LYMPHOCYTES % (MANUAL) 13 %; MONOCYTES # (MANUAL) 0.9 10^3/uL (0.0-1.0); MYELOCYTES % (MANUAL) 4 %; NEUTROPHILS # (MANUAL) 10.2 10^3/uL (1.5-6.6)
[2022-02-16 06:01] LABS: DIFFERENTIAL COMMENT MANUAL DIFFERENTIAL; PLATELET ESTIMATE, MANUAL NORMAL (130-450,000) (NORMAL); PLATELET MORPHOLOGY NORMAL APPEARANCE (NORMAL); WBC MORPHOLOGY (MULTIPLE) NORMAL APPEARANCE (NORMAL)
[2022-02-16] MEDS: PANTOPRAZOLE 40 MG VIAL IVP SCH (07:04)
[2022-02-16 07:09] LABS: ABG BASE EXCESS -4.9 mmol/L (-2.0-3.0); ABG HCO3 20.5 mmol/L (22.0-26.0); ABG OXYGEN SATURATION 90 % (94-98); ABG PCO2 39 mmHg (34-45); ABG PH 7.34 (7.35-7.45); ABG PO2 59 mmHg (80-100); ABG TCO2 21.7 MMOL/L (21.0-29.0)
[2022-02-16 07:10] LABS: ABG MODE OF VENTILATION ASSIST/CONTROL; ALLEN TEST POSITIVE
[2022-02-16 07:11] LABS: ABG RESPIRATORY RATE 12 b/min
[2022-02-16] MEDS: CALCIUM CARBONATE CHEW 500 MG TABLET NG SCH ×3 (08:01→17:19)
[2022-02-16] MEDS: amLODIPine 5 MG TABLET GT SCH (08:02)
[2022-02-16] MEDS: ethyl alcohoL 62% SWAB AMPULE NAS SCH ×2 (08:02→21:24)
[2022-02-16] MEDS: HEPARIN 5,000 UNIT/ML VIAL SUBQ SCH ×2 (08:02→21:27)
[2022-02-16] MEDS: CHLORHEXIDINE GLUCONATE 15 ML UDC PO SCH ×2 (08:02→21:24)
[2022-02-16] MEDS: NYSTATIN POWDER 15 GM TOP SCH ×2 (08:03→21:39)
[2022-02-16] MEDS: polyethylene glycoL 3350 17 GM PACKET PO SCH (08:04)
[2022-02-16] MEDS: FUROSEMIDE 100 MG/10 ML VIAL IVP SCH (10:56)
[2022-02-16] MEDS ORDERED: ALBUMIN 25% 12.5 GM/50 ML VIAL IV STA (11:03)
[2022-02-16] MEDS: METOCLOPRAMIDE 10 MG/2 ML VIAL IVP SCH ×3 (11:46→23:50)
--- NOTE | 2022-02-16 17:48 | PROVIDER PROGRESS NOTE ---
Subjective - Subjective Pt reports feeling: Worse (She is more edematous, has anasarca. She is more sedated, possibly since Versed was added to Propofol yesterday) Objective - Vital Signs/Intake & Output Vital Signs: Vital Signs Temp Pulse Resp BP Pulse Ox 02/16/22 17:00 82 21 143/64 H 91 L 02/16/22 16:00 37.3 C 80 22 144/71 H 90 L 02/16/22 15:00 80 26 H 149/69 H 91 L 02/16/22 14:00 73 23 134/62 H 90 L Intake & Output: Intake & Output 02/13/22 02/14/22 02/15/22 02/16/22 23:59 23:59 23:59 23:59 Intake Total 2598.886 3824.676 4337.545 3707.402 Output Total 321 448 740 0311 Balance 2277.886 3473.676 3745.545 2478.402 - Objective General Appearance: positive: Other (sedated) Eyes Bilateral: positive: Other ((+) lid and face edema) ENT: positive: Other (ET tube and OG tube in) Neck: positive: Other (Morbidly obese and cannot evaluate JVP) Respiratory: positive: No respiratory distress (On the vent) Cardiovascular: positive: Regular rate & rhythm, No murmur (Distant heart sounds due to morbid obesity) Abdomen: positive: Other (Obese with pannus. Skin of the abdomen has pitting edema.) Skin: positive: Warm, Dry Extremities: positive: Other (Anasarca: She has 4+ pitting edema throughout her whole body.) - Lab Results Fish Bones: 02/16/22 05:10 02/16/22 05:10 Other Labs: Lab Results x24hrs 02/16/22 02/16/22 02/16/22 Range/Units 17:31 11:54 07:00 WBC (4.8-10.8) x10^3/uL RBC (4.20-5.40) 10^6/uL Hgb (12.0-16.0) g/dL Hct (37.0-47.0) % MCV (81.0-99.0) fL MCH (27.0-31.0) pg MCHC (32.0-36.0) g/dL RDW (12.0-15.0) % Plt Count (130-450) 10^3/uL MPV (7.9-10.8) fL Neut # (Auto) Lymph # (Auto) [place] # (Auto) Eos # (Auto) Baso # (Auto) Absolute Nucleated RBC Total Counted Band Neuts % (Manual) (0 - 10) % Abnorm Lymph % (Manual) % Myelocytes % ( - 0) % Nucleated RBC % Neutrophils # (Manual) (1.5-6.6) 10^3/uL Lymphocytes # (Manual) (1.5-3.5) 10^3/uL Monocytes # (Manual) (0.0-1.0) 10^3/uL Eosinophils # (Manual) (0-0.7) 10^3/uL Basophils # (Manual) (0-0.1) 10^3/uL Differential Comment WBC Morphology (NORMAL) Platelet Estimate (NORMAL) Platelet Morphology (NORMAL) RBC Morph Micro Appear (NORMAL) Bld Gas Analysis Time 0705 Sample Site RIGHT RADIAL ABG pH 7.34 L (7.35-7.45) ABG pCO2 39 (34-45) mmHg ABG pO2 59 L (80-100) mmHg ABG HCO3 20.5 L (22.0-26.0) mmol/L ABG Total CO2 21.7 (21.0-29.0) MMOL/L ABG O2 Saturation 90 L (94-98) % ABG Base Excess -4.9 L (-2.0-3.0) mmol/L Juan Test POSITIVE Respiration Rate 12 b/min O2 Delivery Device VENTILATOR Vent Mode ASSIST/CONTROL FiO2 100.00 Tidal Volume 450 mL PEEP 14 cmH2O Sodium (135-145) mmol/L Potassium (3.5-5.0) mmol/L Chloride (101-111) mmol/L Carbon Dioxide (21-32) mmol/L Anion Gap (6-13) BUN (6-20) mg/dL Creatinine (0.4-1.0) mg/dL Estimated GFR (MDRD) (>89) Glucose (70-100) mg/dL POC Whole Bld Glucose 136 H 118 H (70 - 100) mg/dL Calcium (8.5-10.3) mg/dL Phosphorus (2.5-4.6) mg/dL Magnesium (1.7-2.8) mg/dL Total Bilirubin (0.2-1.0) mg/dL AST (10-42) IU/L ALT (10-60) IU/L Alkaline Phosphatase (42-121) IU/L Total Protein (6.7-8.2) g/dL Albumin (3.2-5.5) g/dL Globulin (2.1-4.2) g/dL Albumin/Globulin Ratio (1.0-2.2) Prealbumin (18-45) mg/dL Triglycerides ( - 149) mg/dL 02/16/22 02/16/22 02/16/22 Range/Units 05:56 05:10 05:10 WBC (4.8-10.8) x10^3/uL RBC (4.20-5.40) 10^6/uL Hgb (12.0-16.0) g/dL Hct (37.0-47.0) % MCV (81.0-99.0) fL MCH (27.0-31.0) pg MCHC (32.0-36.0) g/dL RDW (12.0-15.0) % Plt Count (130-450) 10^3/uL MPV (7.9-10.8) fL Neut # (Auto) Lymph # (Auto) [place] # (Auto) Eos # (Auto) Baso # (Auto) Absolute Nucleated RBC Total Counted Band Neuts % (Manual) (0 - 10) % Abnorm Lymph % (Manual) % Myelocytes % ( - 0) % Nucleated RBC % Neutrophils # (Manual) (1.5-6.6) 10^3/uL Lymphocytes # (Manual) (1.5-3.5) 10^3/uL Monocytes # (Manual) (0.0-1.0) 10^3/uL Eosinophils # (Manual) (0-0.7) 10^3/uL Basophils # (Manual) (0-0.1) 10^3/uL Differential Comment WBC Morphology (NORMAL) Platelet Estimate (NORMAL) Platelet Morphology (NORMAL) RBC Morph Micro Appear (NORMAL) Bld Gas Analysis Time Sample Site ABG pH (7.35-7.45) ABG pCO2 (34-45) mmHg ABG pO2 (80-100) mmHg ABG HCO3 (22.0-26.0) mmol/L ABG Total CO2 (21.0-29.0) MMOL/L ABG O2 Saturation (94-98) % ABG Base Excess (-2.0-3.0) mmol/L Juan Test Respiration Rate b/min O2 Delivery Device Vent Mode FiO2 Tidal Volume mL PEEP cmH2O Sodium 132 L (135-145) mmol/L Potassium 4.5 (3.5-5.0) mmol/L Chloride 97 L (101-111) mmol/L Carbon Dioxide 21 (21-32) mmol/L Anion Gap 14.0 H (6-13) BUN 64 H (6-20) mg/dL Creatinine 4.8 H (0.4-1.0) mg/dL Estimated GFR (MDRD) 9 L (>89) Glucose 170 H (70-100) mg/dL POC Whole Bld Glucose 187 H (70 - 100) mg/dL Calcium 7.7 L (8.5-10.3) mg/dL Phosphorus 6.8 H (2.5-4.6) mg/dL Magnesium 2.2 (1.7-2.8) mg/dL Total Bilirubin 1.3 H (0.2-1.0) mg/dL AST 16 (10-42) IU/L ALT 51 (10-60) IU/L Alkaline Phosphatase 224 H (42-121) IU/L Total Protein 5.7 L (6.7-8.2) g/dL Albumin 1.8 L (3.2-5.5) g/dL Globulin 3.9 (2.1-4.2) g/dL Albumin/Globulin Ratio 0.5 L (1.0-2.2) Prealbumin 17 L (18-45) mg/dL Triglycerides 220 H ( - 149) mg/dL 02/16/22 02/16/22 02/15/22 Range/Units 05:10 00:11 20:32 WBC 14.5 H (4.8-10.8) x10^3/uL RBC 2.80 L (4.20-5.40) 10^6/uL Hgb 8.0 L (12.0-16.0) g/dL Hct 25.2 L (37.0-47.0) % MCV 90.0 (81.0-99.0) fL MCH 28.6 (27.0-31.0) pg MCHC 31.7 L (32.0-36.0) g/dL RDW 13.2 (12.0-15.0) % Plt Count 455 H (130-450) 10^3/uL MPV 9.3 (7.9-10.8) fL Neut # (Auto) Not Reportable Lymph # (Auto) Not Reportable [place] # (Auto) Not Reportable Eos # (Auto) Not Reportable Baso # (Auto) Not Reportable Absolute Nucleated RBC Not Reportable Total Counted 100 Band Neuts % (Manual) 4 (0 - 10) % Abnorm Lymph % (Manual) 0 % Myelocytes % 4 H ( - 0) % Nucleated RBC % Not Reportable Neutrophils # (Manual) 10.2 H (1.5-6.6) 10^3/uL Lymphocytes # (Manual) 1.9 (1.5-3.5) 10^3/uL Monocytes # (Manual) 0.9 (0.0-1.0) 10^3/uL Eosinophils # (Manual) 1.0 H (0-0.7) 10^3/uL Basophils # (Manual) 0.0 (0-0.1) 10^3/uL Differential Comment MANUAL DIFFERENTIAL WBC Morphology NORMAL APPEARANCE (NORMAL) Platelet Estimate NORMAL (130-450,000) (NORMAL) Platelet Morphology NORMAL APPEARANCE (NORMAL) RBC Morph Micro Appear 1+ TEARDROP CELLS (NORMAL) Bld Gas Analysis Time Sample Site ABG pH (7.35-7.45) ABG pCO2 (34-45) mmHg ABG pO2 (80-100) mmHg ABG HCO3 (22.0-26.0) mmol/L ABG Total CO2 (21.0-29.0) MMOL/L ABG O2 Saturation (94-98) % ABG Base Excess (-2.0-3.0) mmol/L Juan Test Respiration Rate b/min O2 Delivery Device Vent Mode FiO2 Tidal Volume mL PEEP cmH2O Sodium (135-145) mmol/L Potassium (3.5-5.0) mmol/L Chloride (101-111) mmol/L Carbon Dioxide (21-32) mmol/L Anion Gap (6-13) BUN (6-20) mg/dL Creatinine (0.4-1.0) mg/dL Estimated GFR (MDRD) (>89) Glucose (70-100) mg/dL POC Whole Bld Glucose 196 H 227 H (70 - 100) mg/dL Calcium (8.5-10.3) mg/dL Phosphorus (2.5-4.6) mg/dL Magnesium (1.7-2.8) mg/dL Total Bilirubin (0.2-1.0) mg/dL AST (10-42) IU/L ALT (10-60) IU/L Alkaline Phosphatase (42-121) IU/L Total Protein (6.7-8.2) g/dL Albumin (3.2-5.5) g/dL Globulin (2.1-4.2) g/dL Albumin/Globulin Ratio (1.0-2.2) Prealbumin (18-45) mg/dL Triglycerides ( - 149) mg/dL Sepsis Event Note (H) - Evaluation Current Stage of Sepsis: Ruled out Possible source of Sepsis: positive: Pulmonary - Sepsis Criteria Sepsis Criteria: Respiratory: Increasing oxygen requirements, Metabolic: lactate > 2 mmol/L Assessment/Plan - Problem List (1) ARDS (adult respiratory distress syndrome) Impression: She presented as acute respiratory failure in the field when picked up by EMS. She was immediately intubated and has remained intubated since February 08. No history of smoking, asthma, pneumonia or chronic lung disease that I can find from her limited history available. I started wondering about what caused this event. Could she have aspirated, could she have inhaled a foreign body. General surgery on-call was able to see her February 09 and do a type of bronchoscopy where he got back some red granular secretion that was not blood, RN told me today it may have been candy . Those were submitted for culture and her sputum grew out MRSA. 02/12: Last Hospitalist was able to speak to Dr. Campbell, ICU on-call at [facility]. Her number is [phone], after speaking to the [facility] transfer center and they have no beds. After discussing the case with Dr. Campbell, she recommends: +Slowly increasing PEEP over the next hour from 8, to 10, to 12. Go as high as 16 and slowly reduce her FiO2 to at least 70 or 80%. Her blood pressure may drop with this and support her with dopamine. + Make sure she is on DVT prophylaxis, she is +Make sure she is getting adequate nutrition, she is with tube feedings started 02/11 + Antibiotic coverage is adequate with cefepime, vancomycin and Flagyl but has gone off Vanc and went to Linezolid + Continue to see if we can make arrangements for transfer Her O2 sats are worsening since yesterday, at 85-90%, despite FIO2 of 100% and PEEP 14 Plan: Continue with vent support Continue to try to diurese her If we cannot get her transferred, we were considering a tracheostomy, however if she cannot get transferred and get dialysis, she will not survive, thus will not pursue a trach placement I called [facility], gave updates again about her creat increasing, urine output oliguric, persistent acidosis, needing a Bicarb drip, and that she has anasarca. [facility] is still working on getting her transferred but said no beds available today anywhere, pt is on several waiting lists but she has a grim prognosis. Since her prognosis is looking worse and worse, we reached out to [facility], to find out who her next of kin are or DPOA is to inform them. She has no DPOA and has no next of kin. (2) Nephrotoxic acute renal failure Impression: Her urine output started going down 02/12. And by 02/13, it sharply diminished. She continues to be oliguric today, nearly anuric. Since yesterday, she also has anasarca. Her creat has risen daily, yesterday 4.3 and today 4.8. Since yesterday she is acidotic due to uremia. We suspect her renal failure is due to direct nephrotoxic injury from her Vancomycin. Plan: We stopped IV fluids several days ago. The ICU attending at [place] had recommended up to 200 mg of Lasix. Will continue daily 200 mg iv Lasix. We added meds like PhosLo via NG We started a bicarb drip yesterday, follow pH by ABG or VBG. She needs kidney dialysis. BP and HR are stable for her to have this. We are trying to get her transferred. I called [facility] again, gave update about her creat increasing, urine output oliguric, new acidosis, and she is developing anasarca. [facility] is working on getting her transferred for dialysis and vent management, but there are no open beds to take her, as per [facility] when I spoke to them. Pt has a grim prognosis. She is a Full Code. There are no contacts, no DPOA, no next of kin. (3) MRSA (methicillin resistant staphylococcus aureus) pneumonia Impression: Unclear what the event was that made this woman have problem #1. She does have diabetes and she does live in [place] [facility] [place] but she has no history of IV drug abuse. Our suspicion is that she may have aspirated but we may never know Nevertheless her sputum cultures are growing out MRSA. She was initially on Benja ephin and azithromycin. She was then switched to cefepime. And Flagyl. Once her MRSA cultures were resulted February 10, vancomycin was added. She received 2 doses. Trough > 30 however. White cell count is slowly responding. WBC was 20.5 in admission and is 15.7 today. Plan: We stopped vancomycin and changed to linezolid. (4) Pneumonia Impression: CXR was done yesterday 02/14 and was read as improved CHF and a definite consolidation on R side. This may be aspiration vs CAP. Plan: Continue present antibx and vent support, weaning down when tolerated. Qualifiers: Pneumonia type: due to unspecified organism Laterality: bilateral Lung location: unspecified part of lung Qualified Code(s): J18.9 - Pneumonia, unspecified organism (5) Type II diabetes mellitus, uncontrolled Conclusion/Plan: On Lantus 36 units, Glucotrol XL 2.5 mg at her care facility. Intolerance to metformin noted. We started Lantus 20 units and 3 units of short acting q6h since she was n.p.o. plus Sliding scale insulin. We stopped the 3 units q6h when glucose was too tightly controlled and worried about hypoglycemia Tube feeding started February 11. Lantus increased to 24 units 02/12 because glucose not controlled. She has developed retention with 300 cc found when aspirated back. Plan: No change in daily lantus or SS coverage q6h. Holding parameters per protocol for her NG tube feeds are underway. Will add Reglan scheduled Qualifiers: Glycemic state: with hyperglycemia Qualified Code(s): E11.65 - Type 2 diabetes mellitus with hyperglycemia (6) Hypertension Conclusion/Plan: Medications at home were Norvasc but no diuretic, etc. Not on an NAA inhibitor due to severe allergy Plan: We ordered her Norvasc via NG Qualifiers: Hypertension type: primary hypertension Qualified Code(s): I10 - Essential (primary) hypertension (7) Nondisplaced fracture of lateral malleolus of left fibula, subsequent encounter for closed fracture with malunion Conclusion/Plan: She was seen by Ortho on 01/17/2022 and their instructions were: (1) I would continue your short leg boot walker until I recheck you in a month you can bear weight as tolerated on your left leg with your short leg boot walker. When you are sitting, you may remove the boot to work on moving your left ankle so that he would obtain more motion to your left ankle. 2) I will recheck you in 1 month and obtain new x-rays. Your diabetes may affe ct your healing of your fracture, more slowly to heal. Keep your left foot elevated is much as possible to reduce swelling. Your swelling will persist for 3 to 4 months Plan: She is on DVT prophylaxis here. Because of her renal failure, Lovenox 40 mg sq daily was changed to Heparin 5000 U bid, starting tonite. (8) Morbid obesity BMI 45-40 As per Hx.
--- NOTE | 2022-02-16 20:00 | PROVIDER PROGRESS NOTE ---
Objective - Vital Signs/Intake & Output Vital Signs: Vital Signs Temp Pulse Pulse Resp BP Pulse Ox 02/16/22 19:00 84 19 147/63 H 89 L 02/16/22 18:50 81 02/16/22 18:00 80 23 140/66 H 86 L 02/16/22 17:00 82 21 143/64 H 91 L 02/16/22 16:00 37.3 C 80 22 144/71 H 90 L Intake & Output: Intake & Output 02/13/22 02/14/22 02/15/22 02/16/22 23:59 23:59 23:59 23:59 Intake Total 2598.886 3824.676 4337.545 4475.292 Output Total 321 576 845 9520 Balance 2277.886 3473.676 3745.545 3241.292 - Lab Results Fish Bones: 02/16/22 05:10 02/16/22 05:10 Other Labs: Lab Results x24hrs 02/16/22 02/16/22 02/16/22 Range/Units 17:31 11:54 07:00 WBC (4.8-10.8) x10^3/uL RBC (4.20-5.40) 10^6/uL Hgb (12.0-16.0) g/dL Hct (37.0-47.0) % MCV (81.0-99.0) fL MCH (27.0-31.0) pg MCHC (32.0-36.0) g/dL RDW (12.0-15.0) % Plt Count (130-450) 10^3/uL MPV (7.9-10.8) fL Neut # (Auto) Lymph # (Auto) Faulkner # (Auto) Eos # (Auto) Baso # (Auto) Absolute Nucleated RBC Total Counted Band Neuts % (Manual) (0 - 10) % Abnorm Lymph % (Manual) % Myelocytes % ( - 0) % Nucleated RBC % Neutrophils # (Manual) (1.5-6.6) 10^3/uL Lymphocytes # (Manual) (1.5-3.5) 10^3/uL Monocytes # (Manual) (0.0-1.0) 10^3/uL Eosinophils # (Manual) (0-0.7) 10^3/uL Basophils # (Manual) (0-0.1) 10^3/uL Differential Comment WBC Morphology (NORMAL) Platelet Estimate (NORMAL) Platelet Morphology (NORMAL) RBC Morph Micro Appear (NORMAL) Bld Gas Analysis Time 0705 Sample Site RIGHT RADIAL ABG pH 7.34 L (7.35-7.45) ABG pCO2 39 (34-45) mmHg ABG pO2 59 L (80-100) mmHg ABG HCO3 20.5 L (22.0-26.0) mmol/L ABG Total CO2 21.7 (21.0-29.0) MMOL/L ABG O2 Saturation 90 L (94-98) % ABG Base Excess -4.9 L (-2.0-3.0) mmol/L Juan Test POSITIVE Respiration Rate 12 b/min O2 Delivery Device VENTILATOR Vent Mode ASSIST/CONTROL FiO2 100.00 Tidal Volume 450 mL PEEP 14 cmH2O Sodium (135-145) mmol/L Potassium (3.5-5.0) mmol/L Chloride (101-111) mmol/L Carbon Dioxide (21-32) mmol/L Anion Gap (6-13) BUN (6-20) mg/dL Creatinine (0.4-1.0) mg/dL Estimated GFR (MDRD) (>89) Glucose (70-100) mg/dL POC Whole Bld Glucose 136 H 118 H (70 - 100) mg/dL Calcium (8.5-10.3) mg/dL Phosphorus (2.5-4.6) mg/dL Magnesium (1.7-2.8) mg/dL Total Bilirubin (0.2-1.0) mg/dL AST (10-42) IU/L ALT (10-60) IU/L Alkaline Phosphatase (42-121) IU/L Total Protein (6.7-8.2) g/dL Albumin (3.2-5.5) g/dL Globulin (2.1-4.2) g/dL Albumin/Globulin Ratio (1.0-2.2) Prealbumin (18-45) mg/dL Triglycerides ( - 149) mg/dL 02/16/22 02/16/22 02/16/22 Range/Units 05:56 05:10 05:10 WBC (4.8-10.8) x10^3/uL RBC (4.20-5.40) 10^6/uL Hgb (12.0-16.0) g/dL Hct (37.0-47.0) % MCV (81.0-99.0) fL MCH (27.0-31.0) pg MCHC (32.0-36.0) g/dL RDW (12.0-15.0) % Plt Count (130-450) 10^3/uL MPV (7.9-10.8) fL Neut # (Auto) Lymph # (Auto) Faulkner # (Auto) Eos # (Auto) Baso # (Auto) Absolute Nucleated RBC Total Counted Band Neuts % (Manual) (0 - 10) % Abnorm Lymph % (Manual) % Myelocytes % ( - 0) % Nucleated RBC % Neutrophils # (Manual) (1.5-6.6) 10^3/uL Lymphocytes # (Manual) (1.5-3.5) 10^3/uL Monocytes # (Manual) (0.0-1.0) 10^3/uL Eosinophils # (Manual) (0-0.7) 10^3/uL Basophils # (Manual) (0-0.1) 10^3/uL Differential Comment WBC Morphology (NORMAL) Platelet Estimate (NORMAL) Platelet Morphology (NORMAL) RBC Morph Micro Appear (NORMAL) Bld Gas Analysis Time Sample Site ABG pH (7.35-7.45) ABG pCO2 (34-45) mmHg ABG pO2 (80-100) mmHg ABG HCO3 (22.0-26.0) mmol/L ABG Total CO2 (21.0-29.0) MMOL/L ABG O2 Saturation (94-98) % ABG Base Excess (-2.0-3.0) mmol/L Juan Test Respiration Rate b/min O2 Delivery Device Vent Mode FiO2 Tidal Volume mL PEEP cmH2O Sodium 132 L (135-145) mmol/L Potassium 4.5 (3.5-5.0) mmol/L Chloride 97 L (101-111) mmol/L Carbon Dioxide 21 (21-32) mmol/L Anion Gap 14.0 H (6-13) BUN 64 H (6-20) mg/dL Creatinine 4.8 H (0.4-1.0) mg/dL Estimated GFR (MDRD) 9 L (>89) Glucose 170 H (70-100) mg/dL POC Whole Bld Glucose 187 H (70 - 100) mg/dL Calcium 7.7 L (8.5-10.3) mg/dL Phosphorus 6.8 H (2.5-4.6) mg/dL Magnesium 2.2 (1.7-2.8) mg/dL Total Bilirubin 1.3 H (0.2-1.0) mg/dL AST 16 (10-42) IU/L ALT 51 (10-60) IU/L Alkaline Phosphatase 224 H (42-121) IU/L Total Protein 5.7 L (6.7-8.2) g/dL Albumin 1.8 L (3.2-5.5) g/dL Globulin 3.9 (2.1-4.2) g/dL Albumin/Globulin Ratio 0.5 L (1.0-2.2) Prealbumin 17 L (18-45) mg/dL Triglycerides 220 H ( - 149) mg/dL 02/16/22 02/16/22 02/15/22 Range/Units 05:10 00:11 20:32 WBC 14.5 H (4.8-10.8) x10^3/uL RBC 2.80 L (4.20-5.40) 10^6/uL Hgb 8.0 L (12.0-16.0) g/dL Hct 25.2 L (37.0-47.0) % MCV 90.0 (81.0-99.0) fL MCH 28.6 (27.0-31.0) pg MCHC 31.7 L (32.0-36.0) g/dL RDW 13.2 (12.0-15.0) % Plt Count 455 H (130-450) 10^3/uL MPV 9.3 (7.9-10.8) fL Neut # (Auto) Not Reportable Lymph # (Auto) Not Reportable Faulkner # (Auto) Not Reportable Eos # (Auto) Not Reportable Baso # (Auto) Not Reportable Absolute Nucleated RBC Not Reportable Total Counted 100 Band Neuts % (Manual) 4 (0 - 10) % Abnorm Lymph % (Manual) 0 % Myelocytes % 4 H ( - 0) % Nucleated RBC % Not Reportable Neutrophils # (Manual) 10.2 H (1.5-6.6) 10^3/uL Lymphocytes # (Manual) 1.9 (1.5-3.5) 10^3/uL Monocytes # (Manual) 0.9 (0.0-1.0) 10^3/uL Eosinophils # (Manual) 1.0 H (0-0.7) 10^3/uL Basophils # (Manual) 0.0 (0-0.1) 10^3/uL Differential Comment MANUAL DIFFERENTIAL WBC Morphology NORMAL APPEARANCE (NORMAL) Platelet Estimate NORMAL (130-450,000) (NORMAL) Platelet Morphology NORMAL APPEARANCE (NORMAL) RBC Morph Micro Appear 1+ TEARDROP CELLS (NORMAL) Bld Gas Analysis Time Sample Site ABG pH (7.35-7.45) ABG pCO2 (34-45) mmHg ABG pO2 (80-100) mmHg ABG HCO3 (22.0-26.0) mmol/L ABG Total CO2 (21.0-29.0) MMOL/L ABG O2 Saturation (94-98) % ABG Base Excess (-2.0-3.0) mmol/L Juan Test Respiration Rate b/min O2 Delivery Device Vent Mode FiO2 Tidal Volume mL PEEP cmH2O Sodium (135-145) mmol/L Potassium (3.5-5.0) mmol/L Chloride (101-111) mmol/L Carbon Dioxide (21-32) mmol/L Anion Gap (6-13) BUN (6-20) mg/dL Creatinine (0.4-1.0) mg/dL Estimated GFR (MDRD) (>89) Glucose (70-100) mg/dL POC Whole Bld Glucose 196 H 227 H (70 - 100) mg/dL Calcium (8.5-10.3) mg/dL Phosphorus (2.5-4.6) mg/dL Magnesium (1.7-2.8) mg/dL Total Bilirubin (0.2-1.0) mg/dL AST (10-42) IU/L ALT (10-60) IU/L Alkaline Phosphatase (42-121) IU/L Total Protein (6.7-8.2) g/dL Albumin (3.2-5.5) g/dL Globulin (2.1-4.2) g/dL Albumin/Globulin Ratio (1.0-2.2) Prealbumin (18-45) mg/dL Triglycerides ( - 149) mg/dL Sepsis Event Note (H) - Evaluation Current Stage of Sepsis: Ruled out Possible source of Sepsis: positive: Pulmonary - Sepsis Criteria Sepsis Criteria: Respiratory: Increasing oxygen requirements, Metabolic: lactate > 2 mmol/L Assessment/Plan - Problem List (1) ARDS (adult respiratory distress syndrome) Impression: She presented as acute respiratory failure in the field when picked up by EMS. She was immediately intubated and has remained intubated since February 08. No history of smoking, asthma, pneumonia or chronic lung disease that I can find from her limited history available. I started wondering about what caused this event. Could she have aspirated, could she have inhaled a foreign body. General surgery on-call was able to see her February 09 and do a type of bronchoscopy where he got back some red granular secretion that was not blood, RN told me today it may have been candy . Those were submitted for culture and her sputum grew out MRSA. 02/12: Last Hospitalist was able to speak to Dr. Campbell, ICU on-call at [facility]. Her number is [phone], after speaking to the [facility] transfer center and they have no beds. After discussing the case with Dr. Campbell, she recommends: +Slowly increasing PEEP over the next hour from 8, to 10, to 12. Go as high as 16 and slowly reduce her FiO2 to at least 70 or 80%. Her blood pressure may drop with this and support her with dopamine. + Make sure she is on DVT prophylaxis, she is +Make sure she is getting adequate nutrition, she is with tube feedings started 02/11 + Antibiotic coverage is adequate with cefepime, vancomycin and Flagyl but has gone off Vanc and went to Linezolid + Continue to see if we can make arrangements for transfer Her O2 sats are worsening today to 85%, despite FIO2 of 100% and PEEP 14 Plan: We have been gong up on PEEP since 02/12 but FIO2 is still 100%. If we cannot get her transferred, will need to think about long-term vent support with tracheostomy. I called [facility], gave update about her creat increasing, urine output oliguric, acidosis, and she is developing anasarca. [facility] is working on getting her transferred but said no beds available today anywhere, pt is on several waiting lists but she has a grim prognosis. (2) Nephrotoxic acute renal failure Impression: Her urine output started going down 02/12. And by 02/13, it sharply diminished. She continues to be oliguric today, nearly anuric. Since yesterday, she also has anasarca. Her creat has risen daily. Today she is acidotic, liklely due to uremia. We suspect her renal failure is due to direct nephrotoxic injury from her Vancomycin. Plan: We stopped IV fluids several days ago. The ICU attending at [facility] had recommended up to 200 mg of Lasix. Will continue daily 200 mg iv Lasix. Added meds like PhosLo if we can, calcium carbonate via NG Will start a bicarb drip, follow pH by ABG or VBG. She needs kidney dialysis. We are trying to get her transferred. I called [facility] today, gave update about her creat increasing, urine output oliguric, new acidosis, and she is developing anasarca. [facility] is working on getting her transferred for dialysis and vent management, but there are no open beds to take her, as per [facility] when I spoke to them today. Pt has a grim prognosis. She is a Full Code. There are no contacts in her demographic info to call and inform. (3) MRSA (methicillin resistant staphylococcus aureus) pneumonia Impression: Unclear what the event was that made this woman have problem #1. She does have diabetes and she does live in [place] but she has no history of IV drug abuse. Our suspicion is that she may have aspirated but we may never know Nevertheless her sputum cultures are growing out MRSA. She was initially on Rocephin and azithromycin. She was then switched to cefepime. And Flagyl. Once her MRSA cultures were resulted February 10, vancomycin was added. She received 2 doses. Trough > 30 however. White cell count is slowly responding. WBC was 20.5 in admission and is 15.7 today. Plan: We stopped vancomycin and changed to linezolid. (4) Pneumonia Impression: CXR was done yesterday 02/14 and was read as improved CHF and a definite consol idation on R side. This may be aspiration vs CAP. Plan: Continue present antibx and vent support, weaning down when tolerated. Qualifiers: Pneumonia type: due to unspecified organism Laterality: bilateral Lung location: unspecified part of lung Qualified Code(s): J18.9 - Pneumonia, uns pecified organism (5) Type II diabetes mellitus, uncontrolled Conclusion/Plan: On Lantus 36 units, Glucotrol XL 2.5 mg at her care facility. Intolerance to metformin noted. We started Lantus 20 units and 3 units of short acting q6h since she was n.p.o. plus Sliding scale insulin. We stopped the 3 units q6h when glucose was too tightly controlled and worried about hypoglycemia Tube feeding started February 11. Lantus increased to 24 units 02/12 because glucose not controlled. Glucose 138, 174, 198, 184, 187 on 02/12. Then glu 195, 147, 166, 174 on 02/13 Plan: No change in daily lantus or SS coverage q6h. Qualifiers: Glycemic state: with hyperglycemia Qualified Code(s): E11.65 - Type 2 d iabetes mellitus with hyperglycemia (6) Hypertension Conclusion/Plan: Medications at home were Norvasc but no diuretic, etc. Not on an NAA inhibitor due to severe allergy Plan: We ordered her Norvasc via NG Qualifiers: Hypertension type: primary hypertension Qualified Code(s): I10 - Essential (primary) hypertension (7) Nondisplaced fracture of lateral malleolus of left fibula, subsequent encounter for closed fracture with malunion Conclusion/Plan: She was seen by Ortho on 01/17/2022 and their instructions were: (1) I would continue your short leg boot walker until I recheck you in a month you can bear weight as tolerated on your left leg with your short leg boot walker. When you are sitting, you may remove the boot to work on moving your left ankle so that he would obtain more motion to your left ankle. 2) I will recheck you in 1 month and obtain new x-rays. Your diabetes may affect your healing of your fracture, more slowly to heal. Keep your left foot elevated is much as possible to reduce swelling. Your swelling will persist for 3 to 4 months Plan: She is on DVT prophylaxis here. Because of her renal failure, Lovenox 40 mg sq daily will be changed to Heparin 5000 U bid, starting tonite. Discussed with [facility] Pharmacist. (8) Morbid obesity BMI 45-40 As per Hx.
[2022-02-16] MEDS: INSULIN GLARGINE-YFGN 300 UNIT/3 ML PEN SUBQ SCH (21:27)
[2022-02-17] MEDS: INSULIN REGULAR HUMAN 300 UNIT/3 ML VIAL SUBQ SCH ×5 (00:27→23:54)
[2022-02-17] MEDS: CEFEPIME 1 GM in SODIUM CHLORIDE 0.9% MINIBAG 100 ML IV SCH ×2 (01:59→13:36)
[2022-02-17] MEDS: metroNIDAZOLE 500 MG/100 ML 500 MG/100 ML BAG IV SCH ×3 (02:44→18:29)
[2022-02-17] MEDS: SODIUM BICARBONATE 150 MEQ in DEXTROSE 5% 1,000 ML IV SCH ×2 (03:14→15:00)
[2022-02-17] MEDS: SODIUM CHLORIDE FLUSH 0.9% 10 ML SYRINGE IVP PRN ×6 (03:22→17:26)
[2022-02-17] MEDS: MORPHINE 2 MG/ML CARPUJECT IVP PRN ×2 (03:22→06:30)
[2022-02-17] MEDS: PROPOFOL 1000 MG/100 ML 1,000 MG/100 ML BOTTLE IV SCH ×4 (04:52→22:56)
[2022-02-17] MEDS: LINEZOLID 600 MG/300 ML 600 MG/300 ML BAG IV SCH ×2 (05:29→17:20)
[2022-02-17] MEDS: ZINC OXIDE 20% OINT 30 GM TUBE TOP PRN ×3 (06:05→23:59)
[2022-02-17] MEDS: MIDAZOLAM DRIP 50 MG/50 ML 50 MG/50 ML BAG IV SCH ×2 (06:24→20:09)
[2022-02-17] MEDS: PANTOPRAZOLE 40 MG VIAL IVP SCH (06:31)
[2022-02-17] MEDS: METOCLOPRAMIDE 10 MG/2 ML VIAL IVP SCH ×4 (06:31→23:54)
[2022-02-17 06:44] LABS: BASOPHILS % (AUTO) 0.3 %; HCT - HEMATOCRIT 29.9 % (37.0-47.0); HGB - HEMOGLOBIN 9.7 g/dL (12.0-16.0); LYMPHOCYTES % (AUTO) 14.9 %; MEAN CORPUSCULAR HEMOGLOBIN 28.7 pg (27.0-31.0); MEAN CORPUSCULAR HGB CONC 32.4 g/dL (32.0-36.0); MEAN CORPUSCULAR VOLUME 88.5 fL (81.0-99.0); MEAN PLATELET VOLUME 9.2 fL (7.9-10.8); MONOCYTES % (AUTO) 10.6 %; NEUTROPHILS % (AUTO) 56.2 %; PLT - PLATELET COUNT 629 10^3/uL (130-450); RED BLOOD COUNT 3.38 10^6/uL (4.20-5.40); RED CELL DISTRIBUTION WIDTH 13.3 % (12.0-15.0); WHITE BLOOD COUNT 23.2 x10^3/uL (4.8-10.8)
[2022-02-17 06:53] LABS: ABNORMAL LYMPHS % (MANUAL) 0 %
[2022-02-17 06:55] LABS: CALCIUM 7.9 mg/dL (8.5-10.3); CREATININE 5.2 mg/dL (0.4-1.0); POTASSIUM 5.2 mmol/L (3.5-5.0)
[2022-02-17 07:09] LABS: BAND NEUTROPHILS % (MANUAL) 9 %; EOSINOPHILS # (MANUAL) 0.5 10^3/uL (0-0.7); LYMPHOCYTES # (MANUAL) 2.8 10^3/uL (1.5-3.5); LYMPHOCYTES % (MANUAL) 10 %; METAMYELOCYTES % (MANUAL) 4 %; MONOCYTES # (MANUAL) 1.6 10^3/uL (0.0-1.0); MYELOCYTES % (MANUAL) 7 %; NEUTROPHILS # (MANUAL) 15.8 10^3/uL (1.5-6.6); PLATELET ESTIMATE, MANUAL INCREASED (>450,000) (NORMAL); RBC MORPHOLOGY (MULTIPLE) NORMAL APPEARANCE (NORMAL); REACTIVE LYMPHS % (MANUAL) 2 %
[2022-02-17 07:11] LABS: DIFFERENTIAL COMMENT MANUAL DIFFERENTIAL
--- NOTE | 2022-02-17 08:58 | XRAY Report ---
PROCEDURE: Chest 1 View X-Ray INDICATIONS: F/U CHF, PNA and intubated TECHNIQUE: One view of the chest was acquired. COMPARISON: CXR 02/14/2022. FINDINGS: Surgical changes and devices: Endotracheal tube in the upper trachea. A right sided central venous l ine with the catheter tip at the lower third of the SVC. Enteric tube coursing into the stomach. Lungs and pleura: No pneumothorax. Blunting of the left costophrenic angle is seen. There is increas ed opacity in the right lung and left upper lobe. Mediastinum: Mediastinal contours appear normal. Heart size is normal. Bones and chest wall: No suspicious bony lesions. Overlying soft tissues appear unremarkable. IMPRESSION: 1. Tubes and lines project in the expected location. 2. Substantial worsening of the airspace opacities compared to 02/14/2022. Marked opacification of th e right hemithorax. Consolidation in the left upper lobe. 3. Suspect small pleural effusions. Reviewed by: Shai Herron MD on 02/17/2022 8:57 AM PST Approved by: Shai Herron MD on 02/17/2022 8:57 AM PST Station ID: [id number]
[2022-02-17] MEDS: SODIUM CHLORIDE FLUSH 0.9% 10 ML SYRINGE IVP SCH ×3 (09:30→23:56)
[2022-02-17] MEDS: CALCIUM CARBONATE CHEW 500 MG TABLET NG SCH ×3 (09:33→17:28)
[2022-02-17] MEDS: amLODIPine 5 MG TABLET GT SCH (09:33)
[2022-02-17] MEDS: HEPARIN 5,000 UNIT/ML VIAL SUBQ SCH ×2 (09:34→20:14)
[2022-02-17] MEDS: CHLORHEXIDINE GLUCONATE 15 ML UDC PO SCH ×2 (09:34→20:10)
[2022-02-17] MEDS: ethyl alcohoL 62% SWAB AMPULE NAS SCH ×2 (09:34→20:10)
[2022-02-17] MEDS: FUROSEMIDE 100 MG/10 ML VIAL IVP SCH (09:34)
[2022-02-17 10:43] LABS: MAGNESIUM 2.4 mg/dL (1.7-2.8)
[2022-02-17] MEDS: polyethylene glycoL 3350 17 GM PACKET PO SCH (10:47)
[2022-02-17] MEDS: NYSTATIN POWDER 15 GM TOP SCH ×2 (10:48→20:10)
[2022-02-17 12:11] LABS: CALCIUM, IONIZED 1.02 mmol/L (1.15-1.33); VBG PH 7.249 (7.31-7.41)
--- NOTE | 2022-02-17 17:37 | PROVIDER PROGRESS NOTE ---
Subjective - Subjective Pt reports feeling: Worse (as per labs, anasarca, more resp secretions and worsened CXR) Objective - Vital Signs/Intake & Output Vital Signs: Vital Signs Temp Pulse Pulse Resp BP Pulse Ox 02/17/22 17:02 98 02/17/22 17:00 100 20 155/65 H 87 L 02/17/22 16:00 37.6 C 93 23 153/71 H 86 L 02/17/22 15:00 93 18 144/70 H 85 L 02/17/22 14:09 96 02/17/22 14:00 97 19 146/68 H 87 L Intake & Output: Intake & Output 02/14/22 02/15/22 02/16/22 02/17/22 23:59 23:59 23:59 23:59 Intake Total 3824.676 4337.545 5367.147 3902.269 Output Total 952 684 9535 393 Balance 3473.676 3745.545 4057.147 3509.269 - Objective General Appearance: positive: Other (Sedated. her whole body has pitting edema/anasarca.) ENT: positive: Other (ET and OG tubes ion place) Neck: positive: Other (Obese and canot eval for JVP) Respiratory: positive: Rales (R sided) Cardiovascular: positive: No murmur (distant heart sounds due to anasarca and morbid obesity) Abdomen: positive: Other (Obese. abd wall has pitting edema) Skin: positive: Warm Extremities: positive: Other (4+ pitting edema of arms, legs and body surfaces) Neurologic/Psychiatric: positive: Other (Sedated) - Lab Results Fish Bones: 02/17/22 05:56 02/17/22 05:56 Other Labs: Lab Results x24hrs 02/17/22 02/17/22 02/17/22 Range/Units 11:56 11:41 06:03 WBC (4.8-10.8) x10^3/uL RBC (4.20-5.40) 10^6/uL Hgb (12.0-16.0) g/dL Hct (37.0-47.0) % MCV (81.0-99.0) fL MCH (27.0-31.0) pg MCHC (32.0-36.0) g/dL RDW (12.0-15.0) % Plt Count (130-450) 10^3/uL MPV (7.9-10.8) fL Neut # (Auto) Lymph # (Auto) [place] # (Auto) Eos # (Auto) Baso # (Auto) Absolute Nucleated RBC Total Counted Band Neuts % (Manual) (0 - 10) % Reactive Lymphs % (Man) % Abnorm Lymph % (Manual) % Metamyelocytes % ( - 0) % Myelocytes % ( - 0) % Nucleated RBC % Neutrophils # (Manual) (1.5-6.6) 10^3/uL Lymphocytes # (Manual) (1.5-3.5) 10^3/uL Monocytes # (Manual) (0.0-1.0) 10^3/uL Eosinophils # (Manual) (0-0.7) 10^3/uL Basophils # (Manual) (0-0.1) 10^3/uL Differential Comment Platelet Estimate (NORMAL) RBC Morph Micro Appear (NORMAL) VBG pH 7.249 L (7.31-7.41) Ionized Calcium 1.02 L (1.15-1.33) mmol/L Sodium (135-145) mmol/L Potassium (3.5-5.0) mmol/L Chloride (101-111) mmol/L Carbon Dioxide (21-32) mmol/L Anion Gap (6-13) BUN (6-20) mg/dL Creatinine (0.4-1.0) mg/dL Estimated GFR (MDRD) (>89) Glucose (70-100) mg/dL POC Whole Bld Glucose 261 H 196 H (70 - 100) mg/dL Calcium (8.5-10.3) mg/dL Phosphorus (2.5-4.6) mg/dL Magnesium (1.7-2.8) mg/dL 02/17/22 02/17/22 02/17/22 Range/Units 05:56 05:56 05:56 WBC 23.2 H (4.8-10.8) x10^3/uL RBC 3.38 L (4.20-5.40) 10^6/uL Hgb 9.7 L (12.0-16.0) g/dL Hct 29.9 L (37.0-47.0) % MCV 88.5 (81.0-99.0) fL MCH 28.7 (27.0-31.0) pg MCHC 32.4 (32.0-36.0) g/dL RDW 13.3 (12.0-15.0) % Plt Count 629 H (130-450) 10^3/uL MPV 9.2 (7.9-10.8) fL Neut # (Auto) Not Reportable Lymph # (Auto) Not Reportable [place] # (Auto) Not Reportable Eos # (Auto) Not Reportable Baso # (Auto) Not Reportable Absolute Nucleated RBC Not Reportable Total Counted 100 Band Neuts % (Manual) 9 (0 - 10) % Reactive Lymphs % (Man) 2 % Abnorm Lymph % (Manual) 0 % Metamyelocytes % 4 H ( - 0) % Myelocytes % 7 H ( - 0) % Nucleated RBC % Not Reportable Neutrophils # (Manual) 15.8 H (1.5-6.6) 10^3/uL Lymphocytes # (Manual) 2.8 (1.5-3.5) 10^3/uL Monocytes # (Manual) 1.6 H (0.0-1.0) 10^3/uL Eosinophils # (Manual) 0.5 (0-0.7) 10^3/uL Basophils # (Manual) 0.0 (0-0.1) 10^3/uL Differential Comment MANUAL DIFFERENTIAL Platelet Estimate INCREASED (>450,000) (NORMAL) RBC Morph Micro Appear NORMAL APPEARANCE (NORMAL) VBG pH (7.31-7.41) Ionized Calcium (1.15-1.33) mmol/L Sodium 130 L (135-145) mmol/L Potassium 5.2 H (3.5-5.0) mmol/L Chloride 91 L (101-111) mmol/L Carbon Dioxide 23 (21-32) mmol/L Anion Gap 16.0 H (6-13) BUN 72 H (6-20) mg/dL Creatinine 5.2 H (0.4-1.0) mg/dL Estimated GFR (MDRD) 8 L (>89) Glucose 216 H (70-100) mg/dL POC Whole Bld Glucose (70 - 100) mg/dL Calcium 7.9 L (8.5-10.3) mg/dL Phosphorus 8.0 H (2.5-4.6) mg/dL Magnesium 2.4 (1.7-2.8) mg/dL 02/16/22 02/16/22 Range/Units 23:39 17:31 WBC (4.8-10.8) x10^3/uL RBC (4.20-5.40) 10^6/uL Hgb (12.0-16.0) g/dL Hct (37.0-47.0) % MCV (81.0-99.0) fL MCH (27.0-31.0) pg MCHC (32.0-36.0) g/dL RDW (12.0-15.0) % Plt Count (130-450) 10^3/uL MPV (7.9-10.8) fL Neut # (Auto) Lymph # (Auto) [place] # (Auto) Eos # (Auto) Baso # (Auto) Absolute Nucleated RBC Total Counted Band Neuts % (Manual) (0 - 10) % Reactive Lymphs % (Man) % Abnorm Lymph % (Manual) % Metamyelocytes % ( - 0) % Myelocytes % ( - 0) % Nucleated RBC % Neutrophils # (Manual) (1.5-6.6) 10^3/uL Lymphocytes # (Manual) (1.5-3.5) 10^3/uL Monocytes # (Manual) (0.0-1.0) 10^3/uL Eosinophils # (Manual) (0-0.7) 10^3/uL Basophils # (Manual) (0-0.1) 10^3/uL Differential Comment Platelet Estimate (NORMAL) RBC Morph Micro Appear (NORMAL) VBG pH (7.31-7.41) Ionized Calcium (1.15-1.33) mmol/L Sodium (135-145) mmol/L Potassium (3.5-5.0) mmol/L Chloride (101-111) mmol/L Carbon Dioxide (21-32) mmol/L Anion Gap (6-13) BUN (6-20) mg/dL Creatinine (0.4-1.0) mg/dL Estimated GFR (MDRD) (>89) Glucose (70-100) mg/dL POC Whole Bld Glucose 171 H 136 H (70 - 100) mg/dL Calcium (8.5-10.3) mg/dL Phosphorus (2.5-4.6) mg/dL Magnesium (1.7-2.8) mg/dL Sepsis Event Note (H) - Evaluation Current Stage of Sepsis: Ruled out Possible source of Sepsis: positive: Pulmonary - Sepsis Criteria Sepsis Criteria: Respiratory: Increasing oxygen requirements, Metabolic: lactate > 2 mmol/L Assessment/Plan - Problem List (1) ARDS (adult respiratory distress syndrome) Impression: She presented as acute respiratory failure in the field when picked up by EMS. She was immediately intubated and has remained intubated since February 08. No history of smoking, asthma, pneumonia or chronic lung disease. She could have aspirated or inhaled a foreign body. General surgery on-call was able to see her February 09 and do a type of bronchoscopy where he got back some red granular secretion that was not blood. RN passed on that it may have been a hard candy. Those were submitted for culture and her sputum grew out MRSA. On 02/12 the last Hospitalist was able to speak to Dr. Campbell, ICU on-call at [facility]. Her number is [phone], after speaking to the [facility] transfer center and they have no beds. After discussing the case with Dr. Campbell, she recommends: +Slowly increasing PEEP over the next hour from 8, to 10, to 12. Go as high as 16 and slowly reduce her FiO2 to at least 70 or 80%. Her blood pressure may drop with this and support her with dopamine. + Make sure she is on DVT prophylaxis, she is +Make sure she is getting adequate nutrition, she is with tube feedings started 02/11 + Antibiotic coverage is adequate with cefepime, vancomycin and Flagyl but has gone off Vanc and went to Linezolid + Continue to see if we can make arrangements for transfer Her O2 sats have been worsening at 85-90%, despite FIO2 of 100% and PEEP 14 and when she is turned or placed supine, she becomes cyanotic and desaturates to the 50's. Her CXrays are showing worsening status with CHF from anasarca and infiltrates. CXR today showed a R-sided white out and SCOTT consolidation Plan: Continue with vent support Continue to try to diurese her If we cannot get her transferred, we were considering a tracheostomy, however if she cannot get transferred and get dialysis, she will not survive, thus will not pursue a trach placement. I called ID today and went over the entire case and reviewed her current antibx (which are Flagyl, Linazolid and Cefepime. Dr Braun of [place] rec ommended to add coverage for Atypical organisms with Zithromax. He also recommended a CT chest. However, she cannot be transferred (from bed to gurney to CT table back to gurney to bed) or will desaturate. Will obtain a chest ultrasound to evaluate R lung white out. I called [facility] today, gave updates again about her creat increasing daily, urine output oliguric, persistent acidosis needing a Bicarb drip, and that she has anasarca and the new R lung white-out, and that we have no Pulm to do a bron choscopy at this [facility]. [facility] is still working on getting her transferred but said no beds available today anywhere, pt is on several waiting lists but she has a grim prognosis. Since her prognosis is looking worse and worse, we reached out to [facility] on 02/15, to find out who her next of kin are or DPOA is, to inform them. She has no DPOA and has no next of kin. (2) Nephrotoxic acute renal failure Impression: Her urine output started going down 02/12. And by 02/13, it sharply diminished. She continues to be oliguric today, nearly anuric. She also has anasarca. Her creat has risen daily, yesterday 4.8 and today 5.2. Since 02/15 she is acidotic due to uremia. K is 5.2 today. We suspect her renal failure is due to direct nephrotoxic injury from her Vancomycin. Plan: We stopped IV fluids several days ago. The ICU attending at [place] had recommended up to 200 mg of Lasix. Will continue daily 200 mg iv Lasix. We added PhosLo via NG We started a bicarb drip yesterday, follow pH by ABG or VBG. She needs kidney dialysis. BP and HR are stable for her to have this. We are trying to get her transferred. I called [facility] again, gave update about her creat increasing, urine output oliguric, new acidosis, and she is developing anasarca. [facility] is working on getting her transferred for dialysis and vent management, but there are no open beds to take her, as per [facility] when I spoke to them. Pt has a very poor prognosis. She is a Full Code. There are no contacts, no DPOA, no next of kin. (3) MRSA (methicillin resistant staphylococcus aureus) pneumonia Impression: Unclear what the event was that made this woman have problem #1. She does have diabetes and she does live in a shelter but she has no history of IV drug abuse. Our suspicion is that she may have aspirated but we may never know Nevertheless her sputum cultures are growing out MRSA. She was initially on Rocephin and azithromycin. She was then switched to cefepime. And Flagyl. Once her MRSA cultures were resulted February 10, vancomycin was added. She received 2 doses. Trough > 30 however. White cell count is slowly responding. WBC was 20.5 in admission and is 15.7 today. Plan: We stopped vancomycin and changed to linezolid. (4) Pneumonia Impression: CXR was done 02/14 and was read as improved CHF but showed a definite consolidation on R side. Today she has more secretions and today's CXR is much worse with R sided white-out (possibly a mucous plug) plus a new SCOTT consoli dation. She is getting og feeds, and does have alot of residual occaionally (300 cc), although she has HOB elevated. Plan: Continue present antibx and vent support, weaning down when tolerated. Will obtain US R chest Will add Azithromax Will decrease og feeding rate, and as per protocol, scheduled Reglan has been added Qualifiers: Pneumonia type: due to unspecified organism Laterality: bilateral Lung location: unspecified part of lung Qualified Code(s): J18.9 - Pneumonia, unspecified organism (5) Type II diabetes mellitus, uncontrolled Conclusion/Plan: On Lantus 36 units, Glucotrol XL 2.5 mg at her care facility. Intolerance to metformin noted. We started Lantus 20 units and 3 units of short acting q6h since she was n.p.o. plus Sliding scale insulin. We stopped the 3 units q6h when glucose was too tightly controlled and worried about hypoglycemia Tube feeding started February 11. Lantus increased to 24 units 02/12 because glu cose not controlled. She has developed gastric retention with 300 cc found when aspirated back over the last 2 days. Plan: No change in daily lantus or SS coverage q6h. Holding parameters per protocol for her NG tube feeds are underway. We added Reglan scheduled We need to decrease feeding rate somewhat Qualifiers: Glycemic state: with hyperglycemia Qualified Code(s): E11.65 - Type 2 diabetes mellitus with hyperglycemia (6) Hypertension Conclusion/Plan: Medications at home were Norvasc but no diuretic, etc. Not on an NAA inhibitor due to severe allergy Plan: She is getting her Norvasc via NG No severe HTN seen, despite Reglan plus Propofol combination Qualifiers: Hypertension type: primary hypertension Qualified Code(s): I10 - Essential (primary) hypertension (7) Nondisplaced fracture of lateral malleolus of left fibula, subsequent encounter for closed fracture with malunion Conclusion/Plan: She was seen by Ortho on 01/17/2022 and their instructions were: (1) I would continue your short leg boot walker until I recheck you in a month you can bear weight as tolerated on your left leg with your short leg boot walker. When you are sitting, you may remove the boot to work on moving your left ankle so that he would obtain more motion to your left ankle. 2) I will recheck you in 1 month and obtain new x-rays. Your diabetes may affect your healing of your fracture, more slowly to heal. Keep your left foot elevated is much as possible to reduce swelling. Your swelling will persist for 3 to 4 months Plan: She is on DVT prophylaxis here. Because of her renal failure, Lovenox 40 mg sq daily was changed to Heparin 5000 U bid, starting tonite. (8) Morbid obesity BMI 45-40 As per Hx. She has gained >10 kg due to anasarca
[2022-02-17] MEDS ORDERED: AZITHROMYCIN 250 MG TABLET PO STA (17:40)
--- NOTE | 2022-02-17 18:32 | Ultrasound Report ---
PROCEDURE: Ultrasound Chest INDICATIONS: R sided chest white out/eval size pleural effusion TECHNIQUE: Real-time scanning was performed of the right chest. COMPARISON: Chest radiograph same day FINDINGS: An effusion is noted in the right thorax. Precise measurements are difficult due to large body habitu s. 2 separate measurements were documented, one with a volume of 375 cc, the other a volume of 578 cc . IMPRESSION: A right pleural effusion is present, difficult to visualize/measure due to patient body habitus. 2 se parate sets of measurements were obtained, with estimated volume ranging from 375-578 cc. Reviewed by: Tavares Collins MD on 02/17/2022 5:30 PM [facility] Approved by: Tavares Collins MD on 02/17/2022 5:30 PM [facility] Station ID: [id number]
[2022-02-17] MEDS: INSULIN GLARGINE-YFGN 300 UNIT/3 ML PEN SUBQ SCH (20:11)
[2022-02-17] MEDS: ALBUTEROL NEB 2.5 MG/3 ML INH PRN (20:43)
[2022-02-18] MEDS: CEFEPIME 1 GM in SODIUM CHLORIDE 0.9% MINIBAG 100 ML IV SCH ×2 (01:39→13:30)
[2022-02-18] MEDS: SODIUM BICARBONATE 150 MEQ in DEXTROSE 5% 1,000 ML IV SCH ×3 (01:44→19:27)
[2022-02-18] MEDS: metroNIDAZOLE 500 MG/100 ML 500 MG/100 ML BAG IV SCH ×3 (03:08→19:27)
[2022-02-18] MEDS: MIDAZOLAM DRIP 50 MG/50 ML 50 MG/50 ML BAG IV SCH ×2 (04:20→19:33)
[2022-02-18] MEDS: LINEZOLID 600 MG/300 ML 600 MG/300 ML BAG IV SCH ×2 (05:17→17:55)
[2022-02-18] MEDS: SODIUM CHLORIDE FLUSH 0.9% 10 ML SYRINGE IVP PRN ×2 (05:33)
[2022-02-18 05:52] LABS: BASOPHILS % (AUTO) 0.5 %; EOSINOPHILS % (AUTO) 2.1 %; HCT - HEMATOCRIT 26.2 % (37.0-47.0); HGB - HEMOGLOBIN 8.5 g/dL (12.0-16.0); MEAN CORPUSCULAR HEMOGLOBIN 29.1 pg (27.0-31.0); MEAN CORPUSCULAR HGB CONC 32.4 g/dL (32.0-36.0); MEAN CORPUSCULAR VOLUME 89.7 fL (81.0-99.0); MONOCYTES % (AUTO) 10.8 %; PLT - PLATELET COUNT 526 10^3/uL (130-450); RED BLOOD COUNT 2.92 10^6/uL (4.20-5.40); RED CELL DISTRIBUTION WIDTH 13.4 % (12.0-15.0); WHITE BLOOD COUNT 20.9 x10^3/uL (4.8-10.8)
[2022-02-18 05:59] LABS: CALCIUM, IONIZED 0.95 mmol/L (1.15-1.33); VBG PH 7.312 (7.31-7.41)
[2022-02-18 06:01] LABS: CALCIUM 7.4 mg/dL (8.5-10.3); CREATININE 5.7 mg/dL (0.4-1.0); POTASSIUM 5.4 mmol/L (3.5-5.0)
[2022-02-18 06:08] LABS: ABNORMAL LYMPHS % (MANUAL) 0 %
[2022-02-18] MEDS: METOCLOPRAMIDE 10 MG/2 ML VIAL IVP SCH ×3 (06:09→18:19)
[2022-02-18] MEDS: PANTOPRAZOLE 40 MG VIAL IVP SCH (06:09)
[2022-02-18] MEDS: INSULIN REGULAR HUMAN 300 UNIT/3 ML VIAL SUBQ SCH ×3 (06:10→18:18)
[2022-02-18] MEDS: PROPOFOL 1000 MG/100 ML 1,000 MG/100 ML BOTTLE IV SCH ×3 (06:28→19:31)
[2022-02-18 06:53] LABS: BAND NEUTROPHILS % (MANUAL) 1 %; BASOPHILS # (MANUAL) 0.4 10^3/uL (0-0.1); BASOPHILS % (MANUAL) 2 %; DIFFERENTIAL COMMENT MANUAL DIFFERENTIAL; EOSINOPHILS # (MANUAL) 0.4 10^3/uL (0-0.7); LYMPHOCYTES # (MANUAL) 3.8 10^3/uL (1.5-3.5); LYMPHOCYTES % (MANUAL) 18 %; METAMYELOCYTES % (MANUAL) 2 %; MONOCYTES # (MANUAL) 3.1 10^3/uL (0.0-1.0); MYELOCYTES % (MANUAL) 4 %; NEUTROPHILS # (MANUAL) 11.9 10^3/uL (1.5-6.6); PLATELET ESTIMATE, MANUAL INCREASED (>450,000) (NORMAL); RBC MORPHOLOGY (MULTIPLE) 1+ HYPOCHROMASIA (NORMAL)
[2022-02-18 07:48] LABS: ABG PH 7.29 (7.35-7.45)
[2022-02-18 07:49] LABS: ABG BASE EXCESS -0.8 mmol/L (-2.0-3.0); ABG HCO3 26.3 mmol/L (22.0-26.0); ABG PCO2 57 mmHg (34-45); ABG PO2 50 mmHg (80-100); ABG TCO2 28.1 MMOL/L (21.0-29.0); ALLEN TEST POSITIVE
[2022-02-18 07:50] LABS: ABG MODE OF VENTILATION ASSIST/CONTROL; ABG RESPIRATORY RATE 12 b/min
[2022-02-18 07:53] LABS: ABG OXYGEN SATURATION 83 % (94-98)
[2022-02-18] MEDS: HEPARIN 5,000 UNIT/ML VIAL SUBQ SCH ×2 (09:01→20:50)
[2022-02-18] MEDS: ethyl alcohoL 62% SWAB AMPULE NAS SCH ×2 (09:04→20:48)
[2022-02-18] MEDS: CHLORHEXIDINE GLUCONATE 15 ML UDC PO SCH ×2 (09:04→20:48)
[2022-02-18] MEDS: CALCIUM CARBONATE CHEW 500 MG TABLET NG SCH ×3 (09:04→17:50)
[2022-02-18] MEDS: FUROSEMIDE 100 MG/10 ML VIAL IVP SCH (09:05)
[2022-02-18] MEDS: polyethylene glycoL 3350 17 GM PACKET PO SCH (09:11)
[2022-02-18] MEDS: AZITHROMYCIN 250 MG TABLET PO SCH (09:12)
[2022-02-18] MEDS: amLODIPine 5 MG TABLET GT SCH (09:12)
[2022-02-18] MEDS: NYSTATIN POWDER 15 GM TOP SCH ×2 (09:12→20:49)
[2022-02-18] MEDS: SODIUM CHLORIDE FLUSH 0.9% 10 ML SYRINGE IVP SCH ×2 (10:52→19:28)
[2022-02-18] MEDS: CALCIUM ACETATE 667 MG CAPSULE PO SCH (13:41)
--- NOTE | 2022-02-18 15:26 | PROVIDER PROGRESS NOTE ---
Subjective - Subjective Pt reports feeling: No change Objective - Vital Signs/Intake & Output Vital Signs: Vital Signs Temp Pulse Pulse Resp BP Pulse Ox O2 Flow Rate 02/18/22 15:00 88 19 150/78 H 92 02/18/22 14:00 87 14 151/75 H 92 02/18/22 13:22 88 02/18/22 13:00 37.2 C 88 18 153/72 H 92 02/18/22 12:00 37.2 C 87 23 151/88 H 90 L 93 Intake & Output: Intake & Output 02/15/22 02/16/22 02/17/22 02/18/22 23:59 23:59 23:59 23:59 Intake Total 4337.545 5367.147 4910.943 3644.178 Output Total 592 1310 1003 265 Balance 3745.545 4057.147 3907.943 3379.178 - Objective General Appearance: positive: Other (sedated, on the vent) Eyes Bilateral: positive: Other ((+) lid swelling (from anasarca)) ENT: positive: Other (ET tube and OG tube in) Neck: positive: Other (Obese and has anasarca, thus cannot evaluate JVP) Respiratory: positive: No respiratory distress (on the vent) Cardiovascular: positive: Regular rate & rhythm, No murmur Abdomen: positive: Other (with pannus, has bowel sounds) Skin: positive: Warm Extremities: positive: Other (4+ edema of all 4 extremities and skin of her trunk) Neurologic/Psychiatric: positive: Other (sedated) - Lab Results Fish Bones: 02/18/22 05:22 02/18/22 05:22 Other Labs: Lab Results x24hrs 02/18/22 02/18/22 02/18/22 Range/Units 12:28 07:30 05:51 WBC (4.8-10.8) x10^3/uL RBC (4.20-5.40) 10^6/uL Hgb (12.0-16.0) g/dL Hct (37.0-47.0) % MCV (81.0-99.0) fL MCH (27.0-31.0) pg MCHC (32.0-36.0) g/dL RDW (12.0-15.0) % Plt Count (130-450) 10^3/uL MPV (7.9-10.8) fL Neut # (Auto) Lymph # (Auto) [place] # (Auto) Eos # (Auto) Baso # (Auto) Absolute Nucleated RBC Total Counted Band Neuts % (Manual) (0 - 10) % Abnorm Lymph % (Manual) % Metamyelocytes % ( - 0) % Myelocytes % ( - 0) % Nucleated RBC % Neutrophils # (Manual) (1.5-6.6) 10^3/uL Lymphocytes # (Manual) (1.5-3.5) 10^3/uL Monocytes # (Manual) (0.0-1.0) 10^3/uL Eosinophils # (Manual) (0-0.7) 10^3/uL Basophils # (Manual) (0-0.1) 10^3/uL Differential Comment Platelet Estimate (NORMAL) RBC Morph Micro Appear (NORMAL) Bld Gas Analysis Time 0741 Sample Site LEFT RADIAL ABG pH 7.29 L (7.35-7.45) ABG pCO2 57 H (34-45) mmHg ABG pO2 50 L* (80-100) mmHg ABG HCO3 26.3 H (22.0-26.0) mmol/L ABG Total CO2 28.1 (21.0-29.0) MMOL/L ABG O2 Saturation 83 L* (94-98) % ABG Base Excess -0.8 (-2.0-3.0) mmol/L Juan Test POSITIVE VBG pH (7.31-7.41) Ionized Calcium (1.15-1.33) mmol/L Respiration Rate 12 b/min O2 Delivery Device VENTILATOR Vent Mode ASSIST/CONTROL FiO2 100.00 Tidal Volume 450 mL PEEP 14 cmH2O Sodium (135-145) mmol/L Potassium (3.5-5.0) mmol/L Chloride (101-111) mmol/L Carbon Dioxide (21-32) mmol/L Anion Gap (6-13) BUN (6-20) mg/dL Creatinine (0.4-1.0) mg/dL Estimated GFR (MDRD) (>89) Glucose (70-100) mg/dL POC Whole Bld Glucose 185 H 152 H (70 - 100) mg/dL Calcium (8.5-10.3) mg/dL 02/18/22 02/18/22 02/18/22 Range/Units 05:22 05:22 05:22 WBC 20.9 H (4.8-10.8) x10^3/uL RBC 2.92 L (4.20-5.40) 10^6/uL Hgb 8.5 L (12.0-16.0) g/dL Hct 26.2 L (37.0-47.0) % MCV 89.7 (81.0-99.0) fL MCH 29.1 (27.0-31.0) pg MCHC 32.4 (32.0-36.0) g/dL RDW 13.4 (12.0-15.0) % Plt Count 526 H (130-450) 10^3/uL MPV 9.0 (7.9-10.8) fL Neut # (Auto) Not Reportable Lymph # (Auto) Not Reportable [place] # (Auto) Not Reportable Eos # (Auto) Not Reportable Baso # (Auto) Not Reportable Absolute Nucleated RBC Not Reportable Total Counted 100 Band Neuts % (Manual) 1 (0 - 10) % Abnorm Lymph % (Manual) 0 % Metamyelocytes % 2 H ( - 0) % Myelocytes % 4 H ( - 0) % Nucleated RBC % Not Reportable Neutrophils # (Manual) 11.9 H (1.5-6.6) 10^3/uL Lymphocytes # (Manual) 3.8 H (1.5-3.5) 10^3/uL Monocytes # (Manual) 3.1 H (0.0-1.0) 10^3/uL Eosinophils # (Manual) 0.4 (0-0.7) 10^3/uL Basophils # (Manual) 0.4 H (0-0.1) 10^3/uL Differential Comment MANUAL DIFFERENTIAL Platelet Estimate INCREASED (>450,000) (NORMAL) RBC Morph Micro Appear 1+ HYPOCHROMASIA (NORMAL) Bld Gas Analysis Time Sample Site ABG pH (7.35-7.45) ABG pCO2 (34-45) mmHg ABG pO2 (80-100) mmHg ABG HCO3 (22.0-26.0) mmol/L ABG Total CO2 (21.0-29.0) MMOL/L ABG O2 Saturation (94-98) % ABG Base Excess (-2.0-3.0) mmol/L Juan Test VBG pH 7.312 (7.31-7.41) Ionized Calcium 0.95 L (1.15-1.33) mmol/L Respiration Rate b/min O2 Delivery Device Vent Mode FiO2 Tidal Volume mL PEEP cmH2O Sodium 130 L (135-145) mmol/L Potassium 5.4 H (3.5-5.0) mmol/L Chloride 88 L (101-111) mmol/L Carbon Dioxide 26 (21-32) mmol/L Anion Gap 16.0 H (6-13) BUN 78 H (6-20) mg/dL Creatinine 5.7 H (0.4-1.0) mg/dL Estimated GFR (MDRD) 8 L (>89) Glucose 191 H (70-100) mg/dL POC Whole Bld Glucose (70 - 100) mg/dL Calcium 7.4 L (8.5-10.3) mg/dL 02/17/22 02/17/22 Range/Units 23:34 17:45 WBC (4.8-10.8) x10^3/uL RBC (4.20-5.40) 10^6/uL Hgb (12.0-16.0) g/dL Hct (37.0-47.0) % MCV (81.0-99.0) fL MCH (27.0-31.0) pg MCHC (32.0-36.0) g/dL RDW (12.0-15.0) % Plt Count (130-450) 10^3/uL MPV (7.9-10.8) fL Neut # (Auto) Lymph # (Auto) [place] # (Auto) Eos # (Auto) Baso # (Auto) Absolute Nucleated RBC Total Counted Band Neuts % (Manual) (0 - 10) % Abnorm Lymph % (Manual) % Metamyelocytes % ( - 0) % Myelocytes % ( - 0) % Nucleated RBC % Neutrophils # (Manual) (1.5-6.6) 10^3/uL Lymphocytes # (Manual) (1.5-3.5) 10^3/uL Monocytes # (Manual) (0.0-1.0) 10^3/uL Eosinophils # (Manual) (0-0.7) 10^3/uL Basophils # (Manual) (0-0.1) 10^3/uL Differential Comment Platelet Estimate (NORMAL) RBC Morph Micro Appear (NORMAL) Bld Gas Analysis Time Sample Site ABG pH (7.35-7.45) ABG pCO2 (34-45) mmHg ABG pO2 (80-100) mmHg ABG HCO3 (22.0-26.0) mmol/L ABG Total CO2 (21.0-29.0) MMOL/L ABG O2 Saturation (94-98) % ABG Base Excess (-2.0-3.0) mmol/L Juan Test VBG pH (7.31-7.41) Ionized Calcium (1.15-1.33) mmol/L Respiration Rate b/min O2 Delivery Device Vent Mode FiO2 Tidal Volume mL PEEP cmH2O Sodium (135-145) mmol/L Potassium (3.5-5.0) mmol/L Chloride (101-111) mmol/L Carbon Dioxide (21-32) mmol/L Anion Gap (6-13) BUN (6-20) mg/dL Creatinine (0.4-1.0) mg/dL Estimated GFR (MDRD) (>89) Glucose (70-100) mg/dL POC Whole Bld Glucose 202 H 268 H (70 - 100) mg/dL Calcium (8.5-10.3) mg/dL Sepsis Event Note (H) - Evaluation Current Stage of Sepsis: Ruled out Possible source of Sepsis: positive: Pulmonary - Sepsis Criteria Sepsis Criteria: Respiratory: Increasing oxygen requirements, Metabolic: lactate > 2 mmol/L Assessment/Plan - Problem List (1) ARDS (adult respiratory distress syndrome) Impression: (1) ARDS (adult respiratory distress syndrome) Impression: She presented as acute respiratory failure in the field when picked up by EMS. She was immediately intubated and has remained intubated since February 08. No history of smoking, asthma, pneumonia or chronic lung disease. She could have aspirated or inhaled a foreign body. General surgery on-call was able to see her February 09 and do a type of bronchoscopy where he got back some red granular secretion that was not blood. RN passed on that it may have been a hard candy. Those were submitted for culture and her sputum grew out MRSA. On 02/12 the last Hospitalist was able to speak to Dr. Campbell, ICU on-call at [facility]. Her number is [phone], after speaking to the [facility] transfer center and they have no beds. After discussing the case with Dr. Campbell, she recommends: +Slowly increasing PEEP over the next hour from 8, to 10, to 12. Go as high as 16 and slowly reduce her FiO2 to at least 70 or 80%. Her blood pressure may drop with this and support her with dopamine. + Make sure she is on DVT prophylaxis, she is +Make sure she is getting adequate nutrition, she is with tube feedings started 02/11 + Antibiotic coverage is adequate with cefepime, vancomycin and Flagyl but has gone off Vanc and went to Linezolid + Continue to see if we can make arrangements for transfer Her O2 sats have been worsening, are at 85-90%, despite FIO2 of 100% and PEEP 14 and sats drop when she is turned or placed supine, she becomes cyanotic and d esaturates to the 50's. Her CXrays are showing worsening status with CHF from anasarca and infiltrates. CXR 02/17 showed a new R-sided white out and SCOTT consolidation. US of R chest done 02/17 showed it is from 300-500 cc of pleural effusion, plus underlying lung parenchymal disease Plan: Continue with vent support Continue to try to diurese her If we cannot get her transferred, we were considering a tracheostomy, however if she cannot get transferred and get dialysis, she will not survive, thus will not pursue a trach placement. I called ID today and went over the entire case and reviewed her current antibx (which are Flagyl, Linazolid and Cefepime. Dr Braun of [place] recommended to add coverage for Atypical organisms with Zithromax. I called [facility], gave updates again about her creat increasing daily, urine output oliguric, persistent acidosis needing a Bicarb drip, and that she has anasarca and the new R lung white-out, and that we have no Pulm to do a bronchoscopy at this [facility]. [facility] is still working on getting her transferred but said no beds available anywhere, pt is on several waiting lists but she has a grim prognosis. Since her prognosis is looking worse and worse, we reached out to [facility] on 02/15, to find out who her next of kin are or DPOA is, to inform them. She has no DPOA and has no next of kin. (2) Nephrotoxic acute renal failure Impression: Her urine output started going down 02/12. And by 02/13, it sharply diminished. She continues to be oliguric today, nearly anuric. She also has anasarca. Her creat has risen daily, yesterday 4.8 and today 5.2. Since 02/15 she is acidotic due to uremia. K is 5.2 today. We suspect her renal failure is due to direct nephrotoxic injury from her Vancomycin. Plan: We stopped IV fluids many days ago. The ICU attending at [facility] had recommended up to 200 mg of Lasix. We are continuing daily 200 mg iv Lasix. We added PhosLo via NG We started a bicarb drip, follow pH by ABG or VBG or bicarb on BMP. She needs kidney dialysis. BP and HR are stable for her to have this. We are trying to get her transferred. I called [facility] again, gave update about her creat increasing, urine output oliguric, new acidosis, and she is developing anasarca. [facility] is working on getting her transferred for dialysis and vent management, but there are no open beds to take her, as per [facility] when I spoke to them. Pt has a very poor prognosis. She is a Full Code. There are no contacts, no DPOA, no next of kin. (3) MRSA (methicillin resistant staphylococcus aureus) pneumonia Impression: Unclear what the event was that made this woman have problem #1. She does have diabetes and she does live in a snf but she has no history of IV drug abu se. Our suspicion is that she may have aspirated but we may never know Nevertheless her sputum cultures grew out MRSA. She was initially on Rocephin and azithromycin. She was then switched to cefepime. and Flagyl. Once her MRSA cultures were resulted February 10, vancomycin was added. She received 2 doses. Trough > 30 however. White cell count is slowly responding. WBC was 20.5 in admission and has decreased. Plan: We stopped vancomycin and changed to linezolid. (4) Pneumonia Impression: CXR was done 02/14 and was read as improved CHF but showed a definite consolidation on R side. Since yesterday she has more secretions and 02/17 CXR was much worse with R sided white-out (possibly a mucous plug), plus a new SCOTT consolidation. US of R chest done 02/17 showed it is from 300-500 cc of pleural effusion, plus underlying lung parenchymal disease She is getting og feeds, and does have alot of residual occaionally (300 cc), although she has HOB elevated. Plan: Continue present antibx and vent support, weaning down when tolerated. Sputum aspirate was sent for cx yesterday, as advised by ID We added Azithromax We decreased og feeding rate by half yesterday, and as per protocol, scheduled Reglan has been added Qualifiers: Pneumonia type: due to unspecified organism Laterality: bilateral Lung location: unspecified part of lung Qualified Code(s): J18.9 - Pneumonia, unspecified organism (5) Anasarca Impression: She has gained >20 kg since admission due to anasarca Plan: Continuing iv Lasix. We have been looking to transfer her out for dialysis, for 6 days now. (6) Type II diabetes mellitus, uncontrolled Conclusion/Plan: On Lantus 36 units, Glucotrol XL 2.5 mg at her care facility. Intolerance to metformin noted. We started Lantus 20 units and 3 units of short acting q6h since she was n.p.o. plus Sliding scale insulin. We stopped the 3 units q6h when glucose was too tightly controlled and worried about hypoglycemia Tube feeding started February 11. Lantus increased to 24 units 02/12 because glucose not controlled. She has developed gastric retention with 300 cc found when aspirated back over the last 2 days. Plan: No change in daily lantus or SS coverage q6h. Holding parameters per protocol for her NG tube feeds are underway. We added Reglan scheduled We need to decrease feeding rate somewhat Qualifiers: Glycemic state: with hyperglycemia Qualified Code(s): E11.65 - Type 2 diabetes mellitus with hyperglycemia (7) Hypertension Conclusion/Plan: Medications at home were Norvasc but no diuretic, etc. Not on an NAA inhibitor due to severe allergy Plan: She is getting her Norvasc via NG No severe HTN seen, despite Reglan plus Propofol combination Qualifiers: Hypertension type: primary hypertension Qualified Code(s): I10 - Essential (primary) hypertension (8) Nondisplaced fracture of lateral malleolus of left fibula, subsequent encounter for closed fracture with malunion Conclusion/Plan: She was seen by Ortho on 01/17/2022 and their instructions were: (1) I would continue your short leg boot walker until I recheck you in a month you can bear weight as tolerated on your left leg with your short leg boot walker. When you are sitting, you may remove the boot to work on moving your left ankle so that he would obtain more motion to your left ankle. 2) I will recheck you in 1 month and obtain new x-rays. Your diabetes may affect your healing of your fracture, more slowly to heal. Keep your left foot elevated is much as possible to reduce swelling. Your swelling will persist for 3 to 4 months Plan: She is on DVT prophylaxis here. Because of her renal failure, Lovenox 40 mg sq daily was changed to Heparin 5000 U bid (9) VTach Yesterday she had 2 separate 5-beat runs of VT. She had an Echo done several days ago and this showed a normal LVEF. I suspect her VTach is from hypoxia, or acidosis or hyperkalemia. Plan: Follow BMP and treat abn electrolytes. (10) Morbid obesity BMI 45-40 As per Hx. She has gained >10 kg due to anasarca.
[2022-02-18] MEDS: ALBUTEROL NEB 2.5 MG/3 ML INH PRN (19:10)
[2022-02-18] MEDS: INSULIN GLARGINE-YFGN 300 UNIT/3 ML PEN SUBQ SCH (20:51)
[2022-02-19] MEDS: INSULIN REGULAR HUMAN 300 UNIT/3 ML VIAL SUBQ SCH ×2 (00:08→05:58)
[2022-02-19] MEDS: METOCLOPRAMIDE 10 MG/2 ML VIAL IVP SCH ×2 (00:09→05:59)
[2022-02-19] MEDS: ZINC OXIDE 20% OINT 30 GM TUBE TOP PRN (00:10)
[2022-02-19] MEDS: CEFEPIME 1 GM in SODIUM CHLORIDE 0.9% MINIBAG 100 ML IV SCH (01:27)
[2022-02-19] MEDS: SODIUM BICARBONATE 150 MEQ in DEXTROSE 5% 1,000 ML IV SCH (01:38)
[2022-02-19] MEDS: PROPOFOL 1000 MG/100 ML 1,000 MG/100 ML BOTTLE IV SCH ×2 (01:50→08:28)
[2022-02-19] MEDS: SODIUM CHLORIDE FLUSH 0.9% 10 ML SYRINGE IVP SCH (01:56)
[2022-02-19] MEDS: metroNIDAZOLE 500 MG/100 ML 500 MG/100 ML BAG IV SCH (04:06)
[2022-02-19] MEDS: MIDAZOLAM DRIP 50 MG/50 ML 50 MG/50 ML BAG IV SCH ×2 (04:09→09:03)
[2022-02-19] MEDS: LINEZOLID 600 MG/300 ML 600 MG/300 ML BAG IV SCH (05:08)
[2022-02-19 05:09] LABS: CALCIUM, IONIZED 0.93 mmol/L (1.15-1.33); VBG PH 7.313 (7.31-7.41)
[2022-02-19] MEDS: SODIUM CHLORIDE FLUSH 0.9% 10 ML SYRINGE IVP PRN ×3 (05:19→05:59)
[2022-02-19 05:23] LABS: ALBUMIN 1.9 g/dL (3.2-5.5); ALBUMIN/GLOBULIN RATIO 0.5 (1.0-2.2); BILIRUBIN,TOTAL 1.5 mg/dL (0.2-1.0); CALCIUM 7.3 mg/dL (8.5-10.3); CREATININE 5.8 mg/dL (0.4-1.0); MAGNESIUM 2.3 mg/dL (1.7-2.8); PHOSPHORUS 10.2 mg/dL (2.5-4.6); POTASSIUM 5.7 mmol/L (3.5-5.0); TOTAL PROTEIN 6.1 g/dL (6.7-8.2)
[2022-02-19] MEDS: ALBUTEROL NEB 2.5 MG/3 ML INH PRN (05:43)
[2022-02-19] MEDS: PANTOPRAZOLE 40 MG VIAL IVP SCH (05:59)
[2022-02-19] MEDS: CALCIUM ACETATE 667 MG CAPSULE PO SCH (07:58)
[2022-02-19 08:05] VITALS: BP 165/93
--- NOTE | 2022-02-19 08:13 | Discharge Plan ---
Discharge Plan Problem Reviewed?: Yes Disposition: 02 Transfer Acute Care Hosp Condition: Critical No Smoking: If you smoke, Please STOP! Call for help.
--- NOTE | 2022-02-19 08:15 | DISCHARGE SUMMARY ---
Discharge Summary Admit Date: 02/08/22 Discharge Date: 02/19/22 Discharging Provider: Dr Sadaf Boss Primary Care Provider: Dr Rosamaria Judd Condition at Discharge: Critical Discharge Disposition: 02 Transfer Acute Care Hosp Discharge Facility Name: [facility] History of Present Illness: From the admission H&P of Dr Jhoana Escobar: We do not know much about this 61-year-old female that was brought in by EMS with respiratory failure and needed intubation at the scene. She was admitted to [facility] in November 2021 and stayed there for 35 days. She was living in a motel, had to leave the motel due to financial reasons and ended up living in a storage unit with her furniture. She was living in an hotel in [place] with 2 cats and poorly controlled diabetes, hypertension, gait instability with frequent falls. She was trying to transfer to an electric scooter at the grocery store when she fell and twisted her ankle. She was helped back up by bystanders who are able to drive her home. She was able to get inside her motel room but once there she really could not mobilize at all. EMS was called because she could not manage her own hygiene or ambulate.She was seen in the ER December 02 but there is no Inpt bed available. Orthopedics saw her and placed her in an orthotic boot and advised weightbearing as tolerated. She was unable to bear weight and removed the boot on her own. Orthopedics saw her a couple of times. She required a lot of motivation to move and get out of bed. She was tapered off her oxycodone because it was contributing to her sedation. And when she was discharged she was supposed to be off of oxycodone within 2 weeks. It was recommended that she get an outpatient sleep study, see podiatry for diabetic care. She was in the hospital overall from December 05 through January 10.It is unknown at what date she was stable medically to then have avoidable days awaiting placement. Since that time there is a gap in the knowledge of how she ended up at [facility] in [place] but that is where she lives since 01/10/22 and her PCP is Rosamaria Judd. . Her last known normal was at 9 AM today. She is a diabetic and refused her medications this morning and began eating a bag of candy. Later on in the day when she was checked in her room, she was found down, unresponsive and not maintaining her airway with infrequent sonorous respiration. She was intubated in the field and then given Versed. An IO was placed in her left cabrera. Her blood glucose on arrival to the emergency room is 523. She is starting to arouse and follow commands. Temperature is 37.4. Heart rate 90. Blood pressure 111/74. Respirations 20. She is 93% saturated on 100% FiO2 on the ventilator. When the ER doctor examined her she was opening her eyes but then immediately closes them again. Pupils are sluggishly reactive. Belly is soft. She has mild crackles bilaterally. Moving all 4 extremities a little bit. Open her eyes to name but does not make eye contact. Does move to noxious stimuli but does not localize. Her white cell count is 20.5 thousand. Hemoglobin is 12.7. BUN is 30, creatinine 1.2. Glucose 513. BNP is 469. Liver enzymes have a total bili of 1.2, AST 151, ALT 145. Viral PCR panel is negative. Talk screen panel is negative. Head CT is negative. Chest CT has multiple opacities with bilateral diffuse pneumonia or CHF.Ketones are negative and her lactic acid is 3.1. The ER provider and I discussed this case. We find it interesting that there is no antecedent history of illness prior to this. This patient was "normal" this morning. No antecedent history of fever, cough, congestion, sore throat. - HOSPITAL COURSE Hospital Course: (1) ARDS (adult respiratory distress syndrome) She presented as acute respiratory failure in the field when picked up by EMS. She was immediately intubated and has remained intubated since February 08. No history of smoking, asthma, pneumonia or chronic lung disease. She could have aspirated or inhaled a foreign body. General surgery on-call was able to see her February 09 and do a type of bronchoscopy where he got back some red granular secretion that was not blood. It have been a hard candy. Those were submitted for culture and her sputum grew out MRSA. She has been on the ventilator, requiring 100% FIO2 and PEEP increased to as high as 14. Despite that her sats reach only 88-90% at rest and drop temporarily to 50-60% when she is turned and repositioned. She was getting nutrition with tube feedings started 02/11. She needed Reglan and decreased tube feed rate due to retention. Antibiotic coverage was with cefepime, vancomycin and Flagyl, but has gone off Vanc and went to Linezolid. CXR on 02/17 showed a new R-sided white out and new SCOTT consolidation. US of R chest done 02/17 showed it is from 300-500 cc of pleural effusion, plus underlying lung disease. We then added coverage for atypical organisms with Zithromax. She needed transfer for [facility] management and after trying to get her transferred for many days, she was accepted at [facility] in [place] She has no DPOA and we have no info about how to reach a sister on the [facility]. (2) Nephrotoxic acute renal failure Her urine output started going down 02/12. Since 02/13, she was oliguric. She has anasarca. Her creat has risen daily, from normal at admission to 5.8 at time of transfer. Since 02/15 she was acidotic and on a Bicarb drip. K has been 5.2>> 5.7>> 5.8 during the last 3 days here. We suspect her renal failure is due to direct nephrotoxic injury from her Vancomycin, since her Vanco level was elevated. She needed transfer for hemodialysis or at least hemofiltration, and she was accepted in transfer by the [facility] on 02/19/22, and transferred in critical condition by air transport to [facility] in [place]. (3) MRSA (methicillin resistant staphylococcus aureus) pneumonia Unclear what the event was that made this woman have problem #1. She does have diabetes and she does live in a senior care but she has no history of IV drug abuse. Our suspicion is that she may have aspirated. Her sputum cultures grew out MRSA. She was initially on Rocephin and azithromycin. She was then switched to cefepime and Flagyl. Once her MRSA cultures were resulted February 10, vancomycin was added. She received 2 doses. Trough > 30 however. White cell count was slowly responding. We stopped vancomycin and changed to linezolid when level elevated and creatinine increased. (4) Pneumonia CXR at admission showed CHF vs infiltrate.CXR on 02/14 and was read as improved CHF but showed a definite consolidation on R side. She developed more secretions and 02/17 CXR was much worse with R sided white-out plus a new SCOTT consolidation. US of R chest done 02/17 showed 300-500 cc of pleural effusion (5) Pleural effusion As per US of R chest done 02/18. (6) Anasarca She has gained >20 kg since admission due to anasarca. We had her on daily Lasix 200 mg iv. (7) On mecahnical ventilator She was on Propofol max dose and would awaken and follow to voice. We added a Versed drip when we were unable to decrease her vent settings to consider extubation. (8) Type II diabetes mellitus, uncontrolled On Lantus 36 units, Glucotrol XL 2.5 mg at her care facility. Intolerance to metformin noted. We started Lantus an short acting Insulin q6h. She developed gastric retention of her tube feeds with 300 cc found when aspirated. We added Reglan scheduled and needed to decrease feed rate by half. Her A1c came back at 7.7. (9) Hypertension Medications at home were Norvasc but no diuretic and not on NAA-inhibitor due to severe allergy (10) VTach On 02/17 she had 2 separate 5-beat runs of VT. She had had an Echo done several days previously and this showed a normal LVEF. We suspected her VTach was from hypoxia, or acidosis or hyperkalemia. (11) Nondisplaced fracture of lateral malleolus of left fibula, subsequent encounter for closed fracture with malunion She was seen by Ortho on 01/17/2022 and their instructions were: (1) I would continue your short leg boot walker until I recheck you in a month you can bear weight as tolerated on your left leg with your short leg boot walker. When you are sitting, you may remove the boot to work on moving your left ankle so that he would obtain more motion to your left ankle. 2) I will recheck you in 1 month and obtain new x-rays. Your diabetes may affect your healing of your fracture, more slowly to heal. Keep your left foot elevated is much as possible to reduce swelling. Your swelling will persist for 3 to 4 months She is on DVT prophylaxis here. Because of her renal failure, Lovenox 40 mg sq daily was changed to Heparin 5000 U bid (12) Morbid obesity BMI 45-40 As per Hx. Her admission wt was 101kg. She has gained >20 kg due to anasarca. - ALLERGIES Allergies/Adverse Reactions: Allergies Allergy/AdvReac Type Severity Reaction Status Date / Time lisinopril Allergy Unknown Verified 02/08/22 14:41 metformin Allergy Unknown Verified 02/08/22 14:41 - MEDICATIONS Home Medications: Ambulatory Orders Medication Instructions Recorded Confirmed Amlodipine Besylate [Norvasc] 10 mg PO DAILY 02/08/22 02/08/22 Gabapentin [Neurontin] 600 mg PO BID 02/08/22 02/08/22 Insulin Glargine [Lantus Solostar] 36 units SUBQ QPM 02/08/22 02/08/22 Rosuvastatin Calcium [Crestor] 10 mg PO QPM 02/08/22 02/08/22 Trazodone HCl 400 mg PO QPM 02/08/22 02/08/22 glipiZIDE ER [Glucotrol Xl] 2.5 mg PO 0800 02/08/22 02/08/22 - PHYSICAL EXAM AT DISCHARGE General Appearance: positive: Other (Sedated) Eyes Bilateral: positive: Other (Lid swelling and facial anasarca) ENT: positive: ENT inspection nml, Other (ET tube and OG tubes in place) Neck: positive: Other (Obese and has anasarca) Respiratory: positive: Breath sounds nml (on the vent, except dimished on R side) Cardiovascular: positive: Regular rate & rhythm, No murmur (distant heart sounds due to obesity and anasarca) Abdomen: positive: Nml bowel sounds, No distention, Other (Obese with a pannus. Pitting edema of skin of abdomen) Skin: positive: No rash Extremities: positive: Other (4+ edema of arms and legs) Neurologic/Psychiatric: positive: Other (Sedated) - LABS Result Diagrams: 02/18/22 05:22 02/19/22 04:39 - SEPSIS Current Stage of Sepsis: Ruled out Possible source of Sepsis: Pulmonary Sepsis Criteria: Respiratory: Increasing oxygen requirements, Metabolic: lactate > 2 mmol/L - TIME SPENT Time Spent in Discharge (Minutes): 65
[2022-02-19] MEDS: AZITHROMYCIN 250 MG TABLET PO SCH (08:30)
[2022-02-19] MEDS: amLODIPine 5 MG TABLET GT SCH (08:30)
[2022-02-19] MEDS: CALCIUM CARBONATE CHEW 500 MG TABLET NG SCH (08:30)
== END 2022-02-19 10:00 | disposition short-term general hospital (02) | DRG 207 ==
LOC: EDUNIT# → ED 14:23 → ICU 18:08
PROVIDERS: ADMIT Specialist; ATTEND Internal Medicine
PROC: 5A1955Z Respiratory Ventilation, Greater than 96 Consecutive Hours (ICD-10-PCS; principal; 2022-02-08)
PROC: 0B9L8ZX Drainage of Left Lung, Via Natural or Artificial Opening Endoscopic, Diagnostic (ICD-10-PCS; 2022-02-09)
DX: J80 Acute respiratory distress syndrome (principal); J15.212 Pneumonia due to Methicillin resistant Staphylococcus aureus; N17.9 Acute kidney failure, unspecified; I47.20 Ventricular tachycardia, unspecified; S82.65 Nondisplaced fracture of lateral malleolus of left fibula; Z68.41 Body mass index [BMI] 40.0-44.9, adult; E11.65 Type 2 diabetes mellitus with hyperglycemia; T36.8X5A Adverse effect of other systemic antibiotics, initial encounter; Y92.239 Unspecified place in hospital as the place of occurrence of the external cause; I50.9 Heart failure, unspecified; I11.0 Hypertensive heart disease with heart failure; W19.XXXD Unspecified fall, subsequent encounter; E66.01 Morbid (severe) obesity due to excess calories; E78.00 Pure hypercholesterolemia, unspecified; J45.909 Unspecified asthma, uncomplicated; G47.30 Sleep apnea, unspecified; E11.42 Type 2 diabetes mellitus with diabetic polyneuropathy; F32.A Depression, unspecified; G89.4 Chronic pain syndrome; M79.7 Fibromyalgia; Z20.822 Contact with and (suspected) exposure to COVID-19; Z71.3 Dietary counseling and surveillance; Z79.4 Long term (current) use of insulin; Z79.899 Other long term (current) drug therapy; Z80.3 Family history of malignant neoplasm of breast; Z82.49 Family history of ischemic heart disease and other diseases of the circulatory system; Z88.8 Allergy status to other drugs, medicaments and biological substances; Z91.81 History of falling
CPT/HCPCS: 36415; 36556; 36600; 70450; 71045; 71260; 76604; 80048; 80053; 80202; 80306; 82009; 82330; 82803; 83036; 83605; 83690; 83735; 83880; 84100; 84132; 84134; 84478; 85025; 87040; 87070; 87150; 87181; 87205; 87633; 93005; 93306; 94002; 94003; 94640; 96365; 99281; 99285; A9270; J1650; J1815; J1940; J2020; J2765; J3370; P9047; Q9967; 94770